=== PATIENT | male | born 1955 | race African-American/Black ===

== ENCOUNTER 2018-10-26 07:41 | Emergency (ER) | payer MEDICARE, MEDICAID, SELFPAY ==
[2018-10-26 07:45] VITALS: BP 144/84; PULSE 89; RESP 18; TEMP 37; O2SAT 97
--- NOTE | 2018-10-26 08:29 | ED.GENADUL_ITS ---
Discharge Plan Disposition Patient Disposition: HOME Condition: Good Discharge Details Chief Complaint: EyeProblem Clinical Impression: Abrasion, corneal Primary Care Provider: Gertrudis Uribe ED Provider: Nikolay Lane Home Meds and New Rx's Prescriptions: No Action atorvastatin 80 mg tablet 80 mg PO DAILY Qty: 90 RF: 3 Nicotrol 10 mg cartridge 4 mg IH Q4H PRN (Reason: nicotine cravings) Qty: 50 RF: 2 mirtazapine [Remeron SolTab] 45 MG tablet,disintegrating 45 mg PO HS RF: 0 aspirin 81 MG tablet,delayed release (DR/EC) 81 mg PO DAILY RF: 0 acetaminophen 325 MG tablet 650 mg PO Q4H PRN Qty: 30 RF: 3 Yaritza-[place] Original 1 EACH tablet, effervescent 1 ea PO PRN RF: 0 loperamide 2 MG capsule 4 mg PO QID PRNQty: 100 RF: 5 atenolol 100 MG tablet 100 mg PO DAILY Qty: 90 RF: 3 cilostazol 50 MG tablet 50 mg PO BID Qty: 180 RF: 2 pantoprazole 40 MG tablet,delayed release (DR/EC) 40 mg PO DAILY Qty: 90 RF: 3 loratadine 10 MG tablet 10 mg PO DAILY Qty: 90 RF: 3 gabapentin 300 mg capsule 300 mg PO BID Qty: 60 RF: 1 albuterol sulfate [Proventil HFA] 90 mcg/actuation HFA aerosol inhaler 1 - 2 puff Inhalation Q4H PRN PRN (Reason: shortness of breath or wheezing) Qty: 1 RF: 0 quetiapine [Seroquel] 200 MG tablet PO BID RF: 0 Discharge Instructions Instructions: Corneal Abrasion (ED) Additional Instructions: Please apply the ointment to your eye 3 times daily. 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 If you notice any worsening of your symptoms, or any new symptoms such as vision changes, worsening eye pain, discharge from your eye, vomiting, diarrhea, fever, chills, shortness of breath, chest pain, numbness, weakness, or fainting , please return immediately to the emergency department for reevaluation. Please follow up with your primary care provider as soon as possible for reassessment and reevaluation. As always, it was a pleasure participating in your medical care today. Referrals: [facility] [OTHER] - Medical Decision Making This is a 63-year-old -Citizen Of [place] male who presents for evaluation of foreign body sensation in his right eye. It started late last night to early this morning. He denies any recent trauma, metalworking, or woodworking. Exam demonstrates mild corneal abrasion over the center of his eye with uptake. No evidence of retained foreign body, no evidence of rust ring. Visual exam otherwise normal. Eversion of both lids demonstrate no evidence of Lash foreign body under lids. No other significant abnormalities. Patient was given erythromycin ointment here as well as a tube of this and instructed to follow closely with Dr. Garrison. No concerning red flags, no history of HIV, no risk factors for severe corneal ulcer. I have extensively reviewed the treatment plan and discharge instructions with the patient. I have addressed all patient concerns at this time. The patient was made aware of what symptoms to monitor for that would warrant a return to the emergency department. Discussed the plan with the patient, they demonstrate verbal understanding and agreement with our assessment and plan at this time. Mild corneal abrasion noted in the right eye. Not a contact lens wearer. No evidence of foreign body. Erythromycin ointment and Dr. Garrison HPI General Date/Time Provider Initiated Documentation: 10/26/18 08:18 . HPI Narrative: This is a 63-year-old male with past medical history alcohol abuse, hypertension, Crohn's disease, peripheral vascular disease, ostomy, who does not wear contact lenses, who presents today for evaluation of foreign body sensation in his right eye. Patient states that he woke up with the sensation of feeling like it was something grainy in his eye. He denies any other visual changes. He denies any fever, chills, recent metal work or woodworking. He denies any other complaints. He has tried to wash it out with with water, but this is not improved his symptoms. Related Data Home Medications Medication Instructions Recorded Confirmed mirtazapine [Remeron] 45 mg PO HS tab-cap 09/12/12 08/29/18 aspirin 81 mg PO DAILY tab 10/17/12 08/29/18 quetiapine [Seroquel] 0 mg PO BID 10/29/13 08/29/18 acetaminophen 650 mg PO Q4H PRN #30 tab-cap 08/23/16 08/29/18 aspirin-sod bicarb-citric acid 1 ea PO PRN 01/19/17 08/29/18 [[place] Original Tab Eff] loperamide 4 mg PO QID PRN #100 tab-cap 02/08/17 08/29/18 atenolol 100 mg PO DAILY #90 tab-cap 10/19/17 08/29/18 cilostazol 50 mg PO BID #180 tab-cap 02/15/18 08/29/18 pantoprazole 40 mg PO DAILY #90 tab-cap 02/15/18 08/29/18 loratadine 10 mg PO DAILY #90 tab-cap 02/28/18 08/29/18 atorvastatin 80 mg tablet 80 mg PO DAILY #90 tab 05/02/18 08/29/18 nicotine 10 mg inhalation cartridge 4 mg IH Q4H PRN #50 each 05/02/18 08/29/18 gabapentin 300 mg capsule 300 mg PO BID #60 cap 09/21/18 albuterol sulfate HFA 90 1 - 2 puff INHALATION Q4H PRN PRN 10/10/18 mcg/actuation aerosol inhaler #1 inhaler Previous Rx's Medication Instructions Recorded atenolol 100 mg PO DAILY #90 tab-cap 10/19/17 cilostazol 50 mg PO BID #180 tab-cap 02/15/18 pantoprazole 40 mg PO DAILY #90 tab-cap 02/15/18 loratadine 10 mg PO DAILY #90 tab-cap 02/28/18 atorvastatin 80 mg tablet 80 mg PO DAILY #90 tab 05/02/18 nicotine 10 mg inhalation cartridge 4 mg IH Q4H PRN #50 each 05/02/18 gabapentin 300 mg capsule 300 mg PO BID #60 cap 09/21/18 albuterol sulfate HFA 90 1 - 2 puff INHALATION Q4H PRN PRN 10/10/18 mcg/actuation aerosol inhaler #1 inhaler Allergies Allergy/AdvReac Type Severity Reaction Status Date / Time infliximab [From Remicade] Allergy Unknown rash, Verified 08/29/18 11:08 flushing lamotrigine Allergy Unknown Rash Verified 08/29/18 11:08 hydromorphone HCl AdvReac Intermediate itching Verified 08/29/18 11:08 [From Dilaudid] General Stated Complaint: EyeProblem RANDALL: 4 Review of Systems Review of Systems All systems reviewed & are unremarkable except as noted in HPI and below PFSH Medical History Acute kidney injury Alcohol abuse Alcoholic peripheral neuropathy Crohn disease Essential hypertension Ileostomy present PVD (peripheral vascular disease) Tobacco abuse Tubular adenoma of colon Surgical History Angioplasty (09/27/12) Colonoscopy - IV Sedation (04/29/15) Ileoscopy (07/13/17) PARTIAL ILEAL COLECTOMY AND DLI (08/10/16) Stent placement (09/27/12) coronary angiography (08/30/16) Family History Mother Essential hypertension Diabetes Heart disease Stroke Social History Smoking/Tobacco Use Status: Current every day Alcohol Intake: current Alcohol Intake frequency: a few times a week Alcohol type: beer Drug use: Occasionally Substance use type: marijuana Housing: apartment Number of Children: 2 Pets and animals: Yes Pets and animals: cat(s) What type of physical activity do you participate in: none Seatbelt use: always Drive 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 Right eye: EOMI, PERRL, Peripheral vision intact. No nystagmus. No external signs of preseptal cellulitis, no redness around the eye, no proptosis. No hyphema, no signs of trauma around the eye, no periorbital emphysema. Fluorescein exam is positive for corneal abrasion over the center of the cornea, negative Ronda sign. No evidence of rust ring or foreign body. Visual acuity as documented in chart. No difference in visual acuity. 3.ENT: Atraumatic external nose and ears. Moist MM. Neck: Symmetric, trachea midline, No thyromegaly. 4.CVS: +S1/S2, No murmurs or gallops. Peripheral pulses 2+ and equal in all extremities. Brisk capillary refill in all extremities. 5.RESP: Unlabored respiratory effort. Clear to auscultation bilaterally. No wheezes rales or rhonchi 6.GI: Soft, Nontender/Nondistended, No hepatosplenomegaly. No guarding or rebound. 7.MSK: Normocephalic/Atraumatic, Extremities w/o deformity or ttp No cyanosis or clubbing, Normal movement of all extremities 8.Skin: Warm, Dry. No rashes or lesions. 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 Sensation grossly intact, no focal neurologic deficits. 10.Psych: (AAO) x3. Appropriate mood and affect Course Vital Signs Temperature 37.0 C 10/26/18 07:45 Pulse 89 10/26/18 07:45 Respiratory Rate 18 10/26/18 07:45 Blood Pressure 144/84 H 10/26/18 07:45 Pulse Oximetry 97 10/26/18 07:45 Temperature 37.0 C 10/26/18 07:45 Temperature Source Temporal Artery Scan 10/26/18 07:45 Pulse 89 10/26/18 07:45 Respiratory Rate 18 10/26/18 07:45 Blood Pressure 144/84 H 10/26/18 07:45 Blood Pressure Position Sitting 10/26/18 07:45 Pulse Oximetry 97 10/26/18 07:45 Oxygen Delivery Method Room Air 10/26/18 07:45 Oxygen Flow Rate 0 10/26/18 07:45 Pain Level 8 10/26/18 07:45
[2018-10-26] MEDS: Erythromycin Ophth Oint 3.5 GM TUBE (19:07)
[2018-10-26] MEDS: Fluorescein STRIPS 100/BOX 1 MG (19:07)
[2018-10-26] MEDS: Tetracaine 0.5% 4 ML BTL (19:07)
== END 2018-10-26 08:45 | disposition home or self-care (01) ==
PROVIDERS: Emergency Provider Student in an Organized Health Care Education/Training Program; PCP Internal Medicine
DX: S05.01XA Injury of conjunctiva and corneal abrasion without foreign body, right eye, initial encounter (principal); X58.XXXA Exposure to other specified factors, initial encounter; I10 Essential (primary) hypertension
CPT/HCPCS: 99283

== ENCOUNTER 2018-12-11 11:42 | Emergency (ER) | payer MEDICARE, MEDICAID, SELFPAY ==
[2018-12-11 11:52] VITALS: BP 143/101; PULSE 108; RESP 20; TEMP 36.8; O2SAT 98
--- NOTE | 2018-12-11 12:15 | DI.CT_ITS ---
SYMPTOMS/DIAGNOSIS: LEFT PAROTID NECK MASS CERVICAL CT: CT examination of the cervical region was performed with intravenous infusion of 100 cc of Omnipaque 350. Images obtained through the lung apices show severe bullous emphysema. The tracheolaryngeal structures appear grossly intact. No gross cervical mass or adenopathy. The patient reportedly has a question of a palpable left parotid gland mass. The parotid glands are fairly symmetrical with perhaps a slightly larger left parotid. No intraparenchymal mass identified on either side. Submandibular glands appear normal and symmetrical. Visualized paranasal sinuses are predominantly clear with some mucoperiosteal thickening of the sphenoid sinuses. Visualized mastoid air cells are clear. Visualized brain is unremarkable. Some atheromatous change appears to be present in the proximal internal carotid arteries bilaterally, but these vessels are not ideally opacified. CONCLUSION: No gross parotid mass identified. If there is a high clinical suspicion of a parotid mass, additional evaluation with MR of the neck could be considered.
--- NOTE | 2018-12-11 12:18 | ED.GENADUL_ITS ---
Discharge Plan Disposition Patient Disposition: HOME Condition: Good Discharge Details Chief Complaint: GenMedical Clinical Impression: Enlarged parotid gland Primary Care Provider: Gertrudis Uribe ED Provider: Nikolay Lane Home Meds and New Rx's Prescriptions: No Action atorvastatin 80 mg tablet 80 mg PO DAILY Qty: 90 RF: 3 Nicotrol 10 mg cartridge 4 mg IH Q4H PRN (Reason: nicotine cravings) Qty: 50 RF: 2 mirtazapine [Remeron SolTab] 45 MG tablet,disintegrating 45 mg PO HS RF: 0 aspirin 81 MG tablet,delayed release (DR/EC) 81 mg PO DAILY RF: 0 acetaminophen 325 MG tablet 650 mg PO Q4H PRN Qty: 30 RF: 3 Yaritza-[place] Original 1 EACH tablet, effervescent 1 ea PO PRN RF: 0 loperamide 2 MG capsule 4 mg PO QID PRNQty: 100 RF: 5 atenolol 100 MG tablet 100 mg PO DAILY Qty: 90 RF: 3 cilostazol 50 MG tablet 50 mg PO BID Qty: 180 RF: 2 pantoprazole 40 MG tablet,delayed release (DR/EC) 40 mg PO DAILY Qty: 90 RF: 3 loratadine 10 MG tablet 10 mg PO DAILY Qty: 90 RF: 3 albuterol sulfate [Proventil HFA] 90 mcg/actuation HFA aerosol inhaler 1 - 2 puff Inhalation Q4H PRN PRN (Reason: shortness of breath or wheezing) Qty: 1 RF: 0 gabapentin 300 mg capsule 300 mg PO BID Qty: 60 RF: 1 quetiapine [Seroquel] 200 MG tablet PO BID RF: 0 Discharge Instructions Instructions: Parotid Duct Obstruction (ED) Additional Instructions: At this time the CT scan shows no signs of severe abnormality for your parotid gland, however you do need to follow-up closely with an ENT doctor. We will place a referral, and you will be contacted for an appointment time. If you notice any worsening of your symptoms, or any new symptoms such as vomiting, diarrhea, fever, chills, shortness of breath, chest pain, numbness, weakness, or fainting , please return immediately to the emergency department for reevaluation. Please follow up with your primary care provider as soon as possible for reassessment and reevaluation. As always, it was a pleasure participating in your medical care today. Referrals: Gertrudis Uribe MD [Primary Care Provider] - Medical Decision Making This is a pleasant 63-year-old male who presents for evaluation of left parotid gland swelling which he states started today when he woke up. He denies any pain or tenderness or difficulty swallowing or drinking. No signs of airway compromise whatsoever. Exam demonstrates a soft notably enlarged left parotid gland. No testicular pain, or swelling in his other glands. His immunizations are up-to-date, and no clinical consistency with mumps. We will get a CT scan to rule out mass or malignancy. Since there is no signs of airway compromise whatsoever and the lesion appears to be external, with no evidence of abscess if there is no acute process noted on CT I feel that the patient be safely discharged home with close follow-up with his PCP. 2:[address] scan results per Dr. Mcdonald demonstrate minimal to mild enlargement of the left parotid gland, no evidence of heterogenicity, abscess, or atypical mass. No other significant abnormalities acutely noted on CT. Patient continues to look and appear well, have reassuring vital signs, and normal labs. With no signs of severe obstruction, I do not think that a sialagogue is indicated at this time I feel he can be safely discharged home with close follow-up. We will place an ENT referral for further evaluation of this for potential MRI or biopsy. I have extensively reviewed the treatment plan and discharge instructions with the patient. I have addressed all patient concerns at this time. The patient was made aware of what symptoms to monitor for that would warrant a return to the emergency department. Discussed the plan with the patient, they demonstrate verbal understanding and agreement with our assessment and plan at this time. HPI General Date/Time Provider Initiated Documentation: 12/11/18 12:08 . HPI Narrative: This is a 63-year-old -[place] Citizen male with a past medical history of ileostomy, hypertension, high cholesterol, who presents today for evaluation of left-sided cheek/neck mass. The patient states that he woke up was about to go to the store when he noticed significant swelling over his left jaw. He denies any pain, difficulty swallowing, fever, chills, recent weight loss, or previous cancer. He denies any other complaints or other modifying factors. He denies any difficulty controlling secretions, shortness of breath, neck or vision pain, numbness or tingling peer Related Data Home Medications Medication Instructions Recorded Confirmed mirtazapine [Remeron] 45 mg PO HS tab-cap 09/12/12 12/11/18 aspirin 81 mg PO DAILY tab 10/17/12 12/11/18 quetiapine [Seroquel] 0 mg PO BID 10/29/13 12/11/18 acetaminophen 650 mg PO Q4H PRN #30 tab-cap 08/23/16 12/11/18 aspirin-sod bicarb-citric acid 1 ea PO PRN 01/19/17 12/11/18 [Yaritza-[place] Original Tab Eff] loperamide 4 mg PO QID PRN #100 tab-cap 02/08/17 12/11/18 atenolol 100 mg PO DAILY #90 tab-cap 10/19/17 12/11/18 cilostazol 50 mg PO BID #180 tab-cap 02/15/18 12/11/18 pantoprazole 40 mg PO DAILY #90 tab-cap 02/15/18 12/11/18 loratadine 10 mg PO DAILY #90 tab-cap 02/28/18 12/11/18 atorvastatin 80 mg tablet 80 mg PO DAILY #90 tab 05/02/18 12/11/18 nicotine 10 mg inhalation cartridge 4 mg IH Q4H PRN #50 each 05/02/18 12/11/18 albuterol sulfate HFA 90 1 - 2 puff INHALATION Q4H PRN PRN 10/10/18 12/11/18 mcg/actuation aerosol inhaler #1 inhaler gabapentin 300 mg capsule 300 mg PO BID #60 cap 11/10/18 12/11/18 Previous Rx's Medication Instructions Recorded atenolol 100 mg PO DAILY #90 tab-cap 10/19/17 cilostazol 50 mg PO BID #180 tab-cap 02/15/18 pantoprazole 40 mg PO DAILY #90 tab-cap 02/15/18 loratadine 10 mg PO DAILY #90 tab-cap 02/28/18 atorvastatin 80 mg tablet 80 mg PO DAILY #90 tab 05/02/18 nicotine 10 mg inhalation cartridge 4 mg IH Q4H PRN #50 each 05/02/18 albuterol sulfate HFA 90 1 - 2 puff INHALATION Q4H PRN PRN 10/10/18 mcg/actuation aerosol inhaler #1 inhaler gabapentin 300 mg capsule 300 mg PO BID #60 cap 11/10/18 Allergies Allergy/AdvReac Type Severity Reaction Status Date / Time infliximab [From Remicade] Allergy Unknown rash, Verified 12/11/18 11:54 flushing lamotrigine Allergy Unknown Rash Verified 12/11/18 11:54 hydromorphone HCl AdvReac Intermediate itching Verified 12/11/18 11:54 [From Dilaudid] General Stated Complaint: GenMedical RANDALL: 3 Review of Systems Review of Systems All systems reviewed & are unremarkable except as noted in HPI and below PFSH Family History Mother Essential hypertension Diabetes Heart disease Stroke Social History Smoking/Tobacco Use Status: Current every day Alcohol Intake: current Alcohol Intake frequency: a few times a week Alcohol type: beer Drug use: Occasionally Substance use type: marijuana Housing: apartment Number of Children: 2 Pets and animals: Yes Pets and animals: cat(s) What type of physical activity do you participate in: none Seatbelt use: always 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 3.ENT: Atraumatic external nose and ears. Moist MM. Neck: Symmetric, trachea midline, No thyromegaly. Patient's left parotid gland is notably enlarged and asymmetric compared to the right. No tenderness. Oral exam demonstrates no signs of severe dental caries, erythema, or swelling in the intraoral compartment. No evidence of sialolith. No tenderness, erythema or warmth on the external component. No anterior or posterior cervical lymphadenopathy. Ear exams demonstrate no signs of otitis media or externa. Patient demonstrates good movement of cervical neck. There is no nuchal rigidity, no nuchal tenderness. Patient is able to flex the neck without any difficulty or significant pain. Negative Kernig's and Brudzinski sign. 4.CVS: +S1/S2, No murmurs or gallops. Peripheral pulses 2+ and equal in all extremities. Brisk capillary refill in all extremities. 5.RESP: Unlabored respiratory effort. Clear to auscultation bilaterally. No wheezes rales or rhonchi 6.GI: Soft, Nontender/Nondistended, No hepatosplenomegaly. No guarding or rebound. 7.MSK: Normocephalic/Atraumatic, Extremities w/o deformity or ttp No cyanosis or clubbing, Normal movement of all extremities 8.Skin: Warm, Dry. No rashes or lesions. 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 Sensation grossly intact, no focal neurologic deficits. 10.Psych: (AAO) x3. Appropriate mood and affect Course Vital Signs Temperature 36.8 C 12/11/18 11:52 Pulse 108 H 12/11/18 11:52 Respiratory Rate 20 12/11/18 11:52 Blood Pressure 143/101 H 12/11/18 11:52 Pulse Oximetry 98 12/11/18 11:52 Temperature 36.8 C 12/11/18 11:52 Temperature Source Temporal Artery Scan 12/11/18 11:52 Pulse 108 H 12/11/18 11:52 Respiratory Rate 20 12/11/18 11:52 Respiratory Effort Non-Labored 12/11/18 11:52 Blood Pressure 143/101 H 12/11/18 11:52 Blood Pressure Position Sitting 12/11/18 11:52 Pulse Oximetry 98 12/11/18 11:52 Oxygen Delivery Method Room Air 12/11/18 11:52 Oxygen Flow Rate 0 12/11/18 11:52
[2018-12-11 12:31] VITALS: RESP 16
[2018-12-11 12:38] LABS: Abs Immature Grans 0.02 k/cumm (0.0-0.09); Absolute Basophil Count 0.02 k/cumm (0.0-0.2); Absolute Eosinophil Count 0.06 k/cumm (0.0-0.7); Absolute Lymphocyte Count 2.31 k/cumm (1.2-3.4); Absolute Monocyte Count 0.54 k/cumm (0.11-0.7); Absolute Neutrophil Count 3.64 k/cumm (1.2-6.7); Basophils % 0.3; Eosinophils % 0.9; HGB 14.2 g/dL (13.5-17.5); Immature Grans % 0.3; Lymphocytes % 35.1; Mean Corp. HGB Concentration 32.3 g/dL (32.0-36.0); Mean Corpuscular Hemoglobin 29.6 pg (27.0-33.0); Mean Corpuscular Volume 91.7 fL (80-95); Monocytes % 8.2; Neutrophils % 55.2; Platelet Count 287 x1000/uL (130-400); RBC Distribution Width 13.9 % (11.8-14.1); White Blood Cell Count 6.59 k/cumm (4.4-10.8)
[2018-12-11 12:54] LABS: ALT 43 U/L (12-78); AST 46 U/L (15-37); Albumin 3.8 g/dL (3.4-5.0); Alkaline Phosphatase 137 U/L (46-116); Anion Gap 10.4 mmol/L (3-11); BUN 14 mg/dL (7-18); Bilirubin, Total 0.2 mg/dL (0.2-1.0); CO2 22.6 mmol/L (21.0-32.0); CREATININE 1.44 mg/dL (0.70-1.30); Chloride 106 mmol/L (98-107); Estimated GFR 49.39 (mL/min/1.73m2); Glucose 108 mg/dL (70-100); Potassium 4.1 mmol/L (3.5-5.1); Sodium 139 mmol/L (136-145); Total Protein 8.6 g/dL (6.4-8.2)
[2018-12-11] MEDS: Omnipaque 350 MG/ML 100 ML BTL IJ (13:59)
[2018-12-11] MEDS: Normal Saline Flush 10 ML SYR IVP (14:00)
[2018-12-11 14:25] VITALS: BP 143/101; PULSE 108; RESP 16; TEMP 36.8; O2SAT 98
--- NOTE | 2018-12-12 08:25 | PDOC.ERCMPRO ---
Care Management Progress Note 12/12-Dr. Lane requested assistance with an ENT f/u in 1-2 weeks for Left carotid swelling. Referral faxed to ENT this am.
== END 2018-12-11 14:27 | disposition home or self-care (01) ==
PROVIDERS: Emergency Provider Student in an Organized Health Care Education/Training Program; PCP Internal Medicine
DX: K11.8 Other diseases of salivary glands (principal); I10 Essential (primary) hypertension
CPT/HCPCS: 36415; 70491; 80053; 99285; 85025; 99284; J3490

== ENCOUNTER 2019-03-15 03:52 | Outpatient (CLI) | payer MEDICARE, MEDICAID, SELFPAY ==
--- NOTE | 2019-03-15 13:49 | DI.CTLCSR_ITS ---
SYMPTOMS/DIAGNOSIS: NICOTINE DEPENDENCE, F17.210, SCREENING FOR LUNG CA CT CHEST, LOW DOSE LUNG CANCER SCREENING PROTOCOL: CT examination of the chest was performed utilizing low dose lung cancer screening protocol. Images obtained through the upper abdomen show unremarkable appearance of the visualized portions of liver, spleen, pancreas, adrenals and kidneys. No mediastinal or hilar adenopathy seen. Tracheobronchial tree appears intact. No axillary or supraclavicular adenopathy. No pleural effusion or pleural-based mass. There are severe emphysematous changes, predominantly central lobular and most prominent in the upper lobes. Lingular and right middle lobe scarring noted. There is an approximately 5 mm mean diameter nodule of the left lower lobe seen peripherally posterolaterally. This is unchanged from previous CT of 10/11/17. No new significant nodule identified. CONCLUSION: Category 2, benign appearance or behavior. Continue annual screening with LDCT in 12 months. Lung-RAD Category: 2- Benign Appearance/Behavior Lung- RAD Management of Findings: Continue annual LDCT screening in 12 months
== END 2019-03-15 04:12 ==
PROVIDERS: PCP Internal Medicine; Visit Provider Internal Medicine
DX: Z12.2 Encounter for screening for malignant neoplasm of respiratory organs; F17.210 Nicotine dependence, cigarettes, uncomplicated; J43.9 Emphysema, unspecified; R91.1 Solitary pulmonary nodule
CPT/HCPCS: G0297

== ENCOUNTER 2019-09-11 09:42 | Emergency (ER) | payer MEDICARE, MEDICAID, SELFPAY ==
[2019-09-11 09:44] VITALS: BP 168/84; PULSE 96; RESP 16; TEMP 36.6; O2SAT 98
--- NOTE | 2019-09-11 09:50 | W.ED.GENAD ---
Discharge Plan Disposition Patient Disposition: HOME Condition: Improving Discharge Details Chief Complaint: EyeProblem Clinical Impression: Abrasion of cornea, left Primary Care Provider: Gertrudis Uribe ED Provider: John Bill Home Meds and New Rx's Prescriptions: Continued Nicotrol 10 mg cartridge 4 mg IH Q4H PRN (Reason: nicotine cravings) RF: 0 gabapentin 600 mg tablet 600 mg PO TID Qty: 270 RF: 3 mirtazapine [Remeron SolTab] 45 MG tablet,disintegrating 45 mg PO HS RF: 0 aspirin 81 MG tablet,delayed release (DR/EC) 81 mg PO DAILY RF: 0 acetaminophen 325 MG tablet 650 mg PO Q4H PRN Qty: 30 RF: 3 [place] Original 1 EACH tablet, effervescent 1 ea PO PRN RF: 0 loperamide 2 MG capsule 4 mg PO QID PRNQty: 100 RF: 5 atenolol 100 mg tablet 100 mg PO DAILY Qty: 90 RF: 3 cilostazol 50 mg tablet 50 mg PO BID Qty: 180 RF: 3 loratadine 10 mg tablet 10 mg PO DAILY Qty: 90 RF: 3 pantoprazole 40 mg tablet,delayed release (DR/EC) 40 mg PO DAILY Qty: 90 RF: 3 atorvastatin 80 mg tablet 80 mg PO DAILY Qty: 90 RF: 3 albuterol sulfate [Proventil HFA] 90 mcg/actuation HFA aerosol inhaler 1 - 2 puff Inhalation Q4H PRN PRN (Reason: shortness of breath or wheezing) Qty: 1 RF: 0 quetiapine [Seroquel] 200 MG tablet 0 mg PO BID RF: 0 Discharge Instructions Instructions: Corneal Abrasion (ED) Additional Instructions: May use Tylenol as needed for discomfort, continue your regular medications. You may benefit from resting with a cool compress to the eye to decrease discomfort. Continue erythromycin ointment 4 times daily for 4 to 5 days. We will ask our care management team to arrange a follow-up for you at [facility]. Return for any acute concerns. Medical Decision Making 64-year-old male presents from home with left eye irritation, pain, injection and question foreign body. He does have a small speck of granular material removed underneath the upper lid. Under fluorescein exam there is punctate corneal abrasion but no evidence of Ronda sign. I will asked the care management arrange follow-up for him at [facility]. We will treat him with erythromycin ointment. He stable and improving. He is appropriate for discharge home at this time. HPI General Mode of arrival: ambulatory. Date/Time Provider Initiated Documentation: 09/11/19 09:45. Limitations to Documentation: no limitations. Information obtained by: patient. History of Present Illness 64 year old M presents to the emergency department with the chief complaint of Left eye foreign body/pain this morning, described as moderate and similar to prior episodes, and is localized to the eyes and left. Patient reports no radiation. Patient started experiencing this hour(s) and it has been constant. No relieving factors improve symptom(s), No exacerbating factors reported . Patient notes denies fever/chills, headaches, loss of appetite and nausea/vomiting. Patient did receive the following treatments prior to arrival, other (Old antibiotic ointment) Related Data Home Medications Medication Instructions Recorded Confirmed mirtazapine [Remeron SolTab] 45 mg PO HS tab-cap 09/12/12 09/11/19 aspirin 81 mg PO DAILY tab 10/17/12 09/11/19 quetiapine [Seroquel] 0 mg PO BID 10/29/13 09/11/19 acetaminophen 650 mg PO Q4H PRN #30 tab-cap 08/23/16 09/11/19 [place] Original 1 ea PO PRN 01/19/17 09/11/19 loperamide 4 mg PO QID PRN #100 tab-cap 02/08/17 09/11/19 atenolol 100 mg tablet 100 mg PO DAILY #90 tab-cap 12/26/18 09/11/19 atorvastatin 80 mg tablet 80 mg PO DAILY #90 tab 12/26/18 09/11/19 cilostazol 50 mg tablet 50 mg PO BID #180 tab-cap 12/26/18 09/11/19 loratadine 10 mg tablet 10 mg PO DAILY #90 tab-cap 12/26/18 09/11/19 pantoprazole 40 mg tablet,delayed 40 mg PO DAILY #90 tab-cap 12/26/18 09/11/19 release albuterol sulfate 90 mcg/actuation 1 - 2 puff INHALATION Q4H PRN PRN 02/14/19 09/11/19 aerosol inhaler #1 inhaler gabapentin 600 mg tablet 600 mg PO TID #270 tab 02/27/19 09/11/19 nicotine 10 mg inhalation cartridge 4 mg IH Q4H PRN each 02/27/19 09/11/19 Previous Rx's Medication Instructions Recorded atenolol 100 mg tablet 100 mg PO DAILY #90 tab-cap 12/26/18 atorvastatin 80 mg tablet 80 mg PO DAILY #90 tab 12/26/18 cilostazol 50 mg tablet 50 mg PO BID #180 tab-cap 12/26/18 loratadine 10 mg tablet 10 mg PO DAILY #90 tab-cap 12/26/18 pantoprazole 40 mg tablet,delayed 40 mg PO DAILY #90 tab-cap 12/26/18 release albuterol sulfate 90 mcg/actuation 1 - 2 puff INHALATION Q4H PRN PRN 02/14/19 aerosol inhaler #1 inhaler gabapentin 600 mg tablet 600 mg PO TID #270 tab 02/27/19 Allergies Allergy/AdvReac Type Severity Reaction Status Date / Time infliximab [From Remicade] Allergy Unknown rash, Verified 09/11/19 09:51 flushing lamotrigine Allergy Unknown Rash Verified 09/11/19 09:51 hydromorphone HCl AdvReac Intermediate itching Verified 09/11/19 09:51 [From Dilaudid] General Stated Complaint: EyeProblem RANDALL: 4 Review of Systems Narrative: No injury. He is otherwise been well. [facility] Medical History Acute kidney injury Acute kidney injury (Resolved 07/31/16) Alcohol abuse Alcoholic peripheral neuropathy Crohn disease Essential hypertension Ileostomy present PVD (peripheral vascular disease) Tobacco abuse Tubular adenoma of colon Surgical History Angioplasty (09/27/12) Right external iliac and common iliac arteries Colonoscopy - IV Sedation (04/29/15) 3mm polyp in transverse colon coronary angiography (08/30/16) L heart catheterization [facility] Ileoscopy (07/13/17) 06/16/[address] Duran Haskins, recommendation to repeat in 1 year. Report scanned PARTIAL ILEAL COLECTOMY AND DLI (08/10/16) Stent placement (09/27/12) RIght external iliac and common iliac arteries Family History Mother Essential hypertension Diabetes Heart disease Stroke Social History Smoking/Tobacco Use Status: Current every day Tobacco: How many years used: 40 Alcohol Intake: current Alcohol Intake frequency: 3 or more drinks per day Alcohol type: beer Drug use: Occasionally Substance use type: marijuana Household members: none Housing: apartment Number of Children: 2 Communication Needs: None Pets and animals: Yes Pets and animals: cat(s) What type of physical activity do you participate in: walking Seatbelt use: always Drive intox or ride w/intox driver service technician: No Water heater temp set <120 deg: Yes Working smoke detector in home: Yes Fire extinguisher in home: Yes Carbon monox detector in home: Yes Do you feel safe at home: Yes Do you feel safe in your relationship?: Yes Exam Narrative Exam Narrative: GEN: awake, alert, oriented 3. Pleasant, well groomed, interactive. HEAD: Normocephalic, atraumatic ENT: Mucous membranes moist, oropharynx unremarkable, External ear exam unremarkable EYES: PERRL, EOMI, left conjunctival injection, under the left eyelid there is a small foreign body which is removed. Under fluorescein exam there is a inferior punctate corneal abrasion, negative Ronda sign EXT: Full ROM, no edema, no rash Neuro: Grossly normal neurologic exam, conversant, interactive. Psych: Speech fluent, thoughts congruent, affect normal Course Vital Signs Vital signs: Vital Signs Temperature 36.6 C 09/11/19 09:44 Pulse 96 H 09/11/19 09:44 Respiratory Rate 16 09/11/19 09:44 Blood Pressure 168/84 H 09/11/19 09:44 Pulse Oximetry 98 09/11/19 09:44 Temperature 36.6 C 09/11/19 09:44 Temperature Source Temporal Artery Scan 09/11/19 09:44 Pulse 96 H 09/11/19 09:44 Respiratory Rate 16 09/11/19 09:44 Respiratory Effort Non-Labored 09/11/19 09:46 Blood Pressure 168/84 H 09/11/19 09:44 Blood Pressure Position Sitting 09/11/19 09:44 Pulse Oximetry 98 09/11/19 09:44 Oxygen Delivery Method Room Air 03/03/20 09:44 Oxygen Flow Rate 0 09/11/19 09:44 Pain Level 10 09/11/19 09:44
[2019-09-11] MEDS: Balanced Salt Solution 15 ML BTL OP (09:59)
[2019-09-11] MEDS: Erythromycin Ophth Oint 3.5 GM TUBE OS (10:16)
--- NOTE | 2019-09-11 11:52 | NUR.NOTE ---
Referral and physician note faxed to [facility]. [phone].Nursing Note:
== END 2019-09-11 10:17 | disposition home or self-care (01) ==
LOC: ER 10:19
PROVIDERS: Emergency Provider Emergency Medicine; PCP Internal Medicine
DX: S05.02XA Injury of conjunctiva and corneal abrasion without foreign body, left eye, initial encounter (principal); X58.XXXA Exposure to other specified factors, initial encounter; I10 Essential (primary) hypertension
CPT/HCPCS: 65220

== ENCOUNTER 2019-12-27 04:52 | Outpatient (CLI) | payer MEDICARE, MEDICAID, SELFPAY ==
[2019-12-27 13:05] LABS: Anion Gap 13.1 mmol/L (3-11); BUN 25 mg/dL (7-18); CO2 17.9 mmol/L (21.0-32.0); CREATININE 1.75 mg/dL (0.70-1.30); Calcium 8.7 mg/dL (8.5-10.1); Calculated LDL 39 mg/dL (<100); Chloride 107 mmol/L (98-107); Cholesterol 145 mg/dL (<200); Estimated GFR 39.31 (mL/min/1.73m2); Glucose 106 mg/dL (74-106); HDL Cholesterol 58 mg/dL (40-60); Potassium 5.7 mmol/L (3.5-5.1); Sodium 138 mmol/L (136-145); Triglyceride 240 mg/dL (<150)
== END 2019-12-27 05:12 ==
PROVIDERS: PCP Internal Medicine; Visit Provider Internal Medicine
DX: I10 Essential (primary) hypertension (principal); E78.00 Pure hypercholesterolemia, unspecified
CPT/HCPCS: 36415; 80048; 80061

== ENCOUNTER 2020-03-18 02:03 | Outpatient (CLI) | payer MEDICARE, MEDICAID, SELFPAY ==
--- NOTE | 2020-03-18 12:10 | DI.CTLCSR_ITS ---
EXAM: CT CHEST LUNG CANCER SCREEN CLINICAL HISTORY: Screening for lung cancer F17.210 NICOTINE DEPENDENCE TECHNIQUE: Imaging Protocol: Axial computed tomography images with coronal and sagittal reformatted images were created and reviewed COMPARISON: CT CT CHEST LUNG CANCER SCREEN from 03/15/2019 FINDINGS: Tracheobronchial tree: Patent where visualized. Mediastinum and Annalise: No dominant adenopathy or fluid collection. Pulmonary parenchyma: Underlying changes centrilobular emphysema greatest in the upper lobes. Lung Nodules: Stable 5 millimeter nodule in left lower lobe. No new nodules. Pleura: No effusion or pneumothorax. Heart: The heart is not dilated. Mild coronary artery calcifications are seen. Aorta: Thoracic aorta non-dilated. Upper abdomen: Unremarkable. Bones: Degenerative disc changes. IMPRESSION: Stable 5 millimeter left lower lobe nodule. Lung RADS Cat 2 - Benign Appearance / Behavior: Nodules with a very low likelihood of becoming a clin ically active cancer due to size or lack of growth modifier S Lung-RADS 1.0 CATEGORIES: Category 0 - Prior chest CT exam(s) being located for comparison. Category 1 - Annual screening in 12 months. No nodules or definitely benign nodules. Category 2 - Annual screening in 12 months. Benign appearance. Nodules with low likelihood of becomin g active cancer. Category 3 - 6-month follow-up. Probably benign. Short-term follow-up suggested. Nodules with low lik elihood of becoming active cancer. Category 4A - 3-month follow-up and CT/PET if >8 mm in size. Suspicious finding. Findings which requi re additional testing. Category 4B - Findings which require additional testing and tissue sampling. Suspicious finding. C Added to Any of the Above - History of prior lung cancer screening. S Added to Any of the Above - Significant unexpected other finding. RADIATION DOSE DELIVERED: Total DLP DATA REPOSITORY: All CT scans at this facility are submitted to the National Radiology Data Registry (NRDR) Dose Index Registry (DIR) with the [employer] (ACR). RADIATION OPTIMIZATION: All CT scans at this facility use at least one of these dose optimization te chniques: automated exposure control; mA and/or kV adjustment per patient size (includes targeted exa ms where dose is matched to clinical indication); or iterative reconstruction.
== END 2020-03-18 02:23 ==
PROVIDERS: PCP Internal Medicine; Visit Provider Internal Medicine
DX: Z12.2 Encounter for screening for malignant neoplasm of respiratory organs (principal); F17.210 Nicotine dependence, cigarettes, uncomplicated; R91.1 Solitary pulmonary nodule
CPT/HCPCS: G0297

== ENCOUNTER 2020-05-01 01:35 | Outpatient (CLI) | payer MEDICARE, MEDICAID, SELFPAY ==
--- NOTE | 2020-05-01 15:10 | DI.CT_ITS ---
EXAM: CT LUMBAR SPINE WO CLINICAL HISTORY: persistent numbness (B) feet in L4-5 distribution,LUMBAR RADICULOPATHY,M54. TECHNIQUE: Imaging Protocol: Axial computed tomography images with coronal and sagittal reformatted images were created and reviewed CONTRAST MATERIAL: Noncontrast COMPARISON: CT LUMBAR SPINE SI JOINTS WO from 06/07/2016 FINDINGS: Bones: The last intervertebral disc space is designated the L5/S1 level for the numbering purpose of this examination. The vertebral body heights are well maintained. Alignment is satisfactory. No frac ture is seen. There is bony bridging across the anterior aspect of the left SI joint. There is mild spurring of the right SI joint. No bony erosions are seen. The left hip is partially included in th e field of view. There is mild acetabular spurring. There is a subchondral cyst in the superior lizeth tabulum and a few small subchondral cysts in the left femoral head. T12-L1: No disc herniations or bulges are present. L1-2: No disc herniations or bulges are present. L2-3: There is mild loss of disc height. There are osteophytes projecting laterally toward the righ t. There is mild concentric disc bulging. L3-4: Mild concentric disc bulging. L4-5: Prominent circumferential disc bulging. Small endplate osteophytes. Facet degenerative nelson es and mild ligamentous hypertrophy combine to produce mild central canal stenosis and mild bilateral neural foraminal narrowing. L5-S1: Moderate loss of disc height. Prominent broad-based osteophytes. Mild facet joint degenerat belgica changes. There is severe left neural foraminal narrowing secondary to endplate osteophyte encroa chment. Moderate to severe right-sided neural foraminal narrowing is also seen. Soft Tissues: There is calcification in the abdominal aorta. There is a right iliac artery stent. No aneurysm is seen. The paraspinal soft tissues are unremarkable. IMPRESSION: Degenerative disc changes, greatest at L 5 S1 where there is severe bilateral neural foraminal narrow ing. Degenerative disc bulging and facet degenerative changes combine to produce mild central canal stenosis at L 4 5. No focal disc herniation is seen at any level. RADIATION DOSE DELIVERED: 664.88mGy.cm Total DLP DATA REPOSITORY: All CT scans at this facility are submitted to the National Radiology Data Registry (NRDR) Dose Index Registry (DIR) with the [employer] (ACR). RADIATION OPTIMIZATION: All CT scans at this facility use at least one of these dose optimization te chniques: automated exposure control; mA and/or kV adjustment per patient size (includes targeted exa ms where dose is matched to clinical indication); or iterative reconstruction.
[2020-05-01 16:49] LABS: Anion Gap 9.8 mmol/L (3-11); BUN 17 mg/dL (7-18); CO2 25.2 mmol/L (21.0-32.0); CREATININE 1.42 mg/dL (0.70-1.30); Calcium 8.4 mg/dL (8.5-10.1); Chloride 106 mmol/L (98-107); Estimated GFR 49.88 (mL/min/1.73m2); Glucose 97 mg/dL (74-106); Potassium 3.9 mmol/L (3.5-5.1); Sodium 141 mmol/L (136-145)
== END 2020-05-01 01:55 ==
PROVIDERS: PCP Internal Medicine; Visit Provider Internal Medicine
DX: M51.16 Intervertebral disc disorders with radiculopathy, lumbar region (principal); M48.062 Spinal stenosis, lumbar region with neurogenic claudication; R20.2 Paresthesia of skin; M47.816 Spondylosis without myelopathy or radiculopathy, lumbar region
CPT/HCPCS: 36415; 80048; 72131

== ENCOUNTER 2020-07-27 07:58 | Emergency (ER) | payer MEDICARE, MEDICAID, SELFPAY ==
[2020-07-27] VITALS (58 sets, daily range): BP systolic 101–144; BP diastolic 49–113; PULSE 61–110; RESP 10–35; TEMP 36.4; O2SAT 90–100
--- NOTE | 2020-07-27 08:00 | RT.EKG_ITS ---
APPROVED REPORT Exam: Resting ECG Patient Location: E HR:104 bpm ECG Measurements Heart Rate 104 AXIS TN 146 P 68 QRSd 78 QRS 7 QT 341 T 67 QTc 442 Conclusion Sinus tachycardia...rate> 99 Atrial premature complexes...SV complexes w/ short R-R intvls Probable left atrial enlargement...P >50mS, <-0.10mV V1
--- NOTE | 2020-07-27 08:18 | W.ED.GENAD ---
Discharge Plan Disposition Patient Disposition: [facility] Condition: Serious Discharge Details Clinical Impression: Brain mass, New onset seizure Primary Care Provider: Gertrudis Uribe ED Provider: Mark Sanchez Home Meds and New Rx's Prescriptions: No Action divalproex 125 mg capsule, delayed rel sprinkle 500 mg PO BID RF: 0 atenolol 100 mg tablet 100 mg PO DAILY Qty: 90 RF: 3 atorvastatin 80 mg tablet 80 mg PO DAILY Qty: 90 RF: 3 cilostazol 50 mg tablet 50 mg PO BID Qty: 180 RF: 3 Hold Instructions: restart 08/08/20 [place] [facility] [place] gabapentin 600 mg tablet 600 mg PO TID Qty: 270 RF: 3 pantoprazole 40 mg tablet,delayed release (DR/EC) 40 mg PO DAILY Qty: 90 RF: 3 loratadine 10 mg tablet 10 mg PO DAILY Qty: 90 RF: 3 albuterol sulfate [Proventil HFA] 90 mcg/actuation HFA aerosol inhaler 1 - 2 puff Inhalation Q4H PRN PRN (Reason: shortness of breath or wheezing) Qty: 1 RF: 2 mirtazapine [Remeron SolTab] 45 MG tablet,disintegrating 45 mg PO HS RF: 0 aspirin 81 MG tablet,delayed release (DR/EC) 81 mg PO DAILY RF: 0 Hold Instructions: restart 08/08/20 [place] [facility] [place] acetaminophen 325 MG tablet 650 mg PO Q4H PRN Qty: 30 RF: 3 Yaritza-Donner Original 1 EACH tablet, effervescent 1 ea PO PRN RF: 0 loperamide 2 MG capsule 4 mg PO QID PRNQty: 100 RF: 5 (DME) coloplast elastic barrier strips See Rx Instructions .Route .MEDSUPPLY Qty: 20 RF: 12 (DME) coloplast sensura convex pouch See Rx Instructions .Route .MEDSUPPLY Qty: 20 RF: 12 quetiapine [Seroquel] 200 mg tablet 400 mg PO BID RF: 0 Discharge Data Discharge Date/Time-TO BE ENTERED AT DEPARTURE: 07/27/20 14:18 Medical Decision Making 822??65-year-old male with multiple medical problems including history of alcohol abuse, chronic kidney disease, here after observed seizure-like activity with confusion after the event. Patient is now more oriented. No focal neurologic deficit appreciated. Patient is tachycardic but otherwise no signs of alcohol withdrawal. I suspect tonic-clonic seizure and postictal state. We will proceed with seizure work-up including CT head and diagnostic labs. I will give thiamine 100 mg IV. Considered arrhythmia, screening ECG nondiagnostic. -- Magnesium 1.1, Will give magnesium 2g IV. 10:10 -- CT head interpreted by radiology: large anterior cranial fossa mass, recommend MRI. Keppra 1g IV ordered. I called [facility] [place] to request transfer - awaiting call back from neurology. CT imaging sent for review. 11:12 --still awaiting return call from [facility]. I called to request again and awaiting callback. --Spoke with Dr. Ware, [facility] neuro[place]geon, discussed ED presentation and course, he will accept the patient in transfer. He recommends Decadron 10 mg IV be given. Now awaiting bed placement. --Patient reassessed and having some anxiety. Ativan 1 mg IV administered. 13:49 --bed now available. Will arrange for EMS transport. Lab Data Lab results reviewed: Yes I reviewed the patient's lab results. Labs: Laboratory Tests Range/Units 07/27/20 07/27/20 07/27/20 08:24 08:24 08:24 WBC (4.4-10.8) 10^3/uL 6.17 RBC (4.36-5.78) 10^6/uL 4.51 Hgb (13.5-17.5) g/dL 13.4 L Hct (40.0-50.0) % 41.9 MCV (80-95) fL 92.9 MCH (27.0-33.0) pg 29.7 MCHC (32.0-36.0) % 32.0 RDW (11.8-14.1) % 15.1 H Plt Count (130-400) 10^3/uL 211 MPV (8.0-11.0) fL 12.8 H Immature Gran % 0.6 Neutrophils % 54.1 Lymphocytes % 35.2 Monocytes % 8.6 Eosinophils % 1.0 Basophils % 0.5 Nucleated RBC % % 0 Absolute Neutrophils (1.2-6.7) 10^3/uL 3.34 Absolute Lymphocytes (1.2-3.4) 10^3/uL 2.17 Absolute Monocytes (0.1-0.8) 10^3/uL 0.53 Absolute Eosinophils (0.0-0.7) 10^3/uL 0.06 Absolute Basophils (0.0-0.2) 10^3/uL 0.03 PT (9.3-11.0) sec 11.0 INR (0.9-1.1) 1.1 Sodium (136-145) mmol/L 143 Potassium (3.5-5.1) mmol/L 4.2 Chloride (98-107) mmol/L 108 H Carbon Dioxide (21.0-32.0) mmol/L 20.7 L Anion Gap (3-11) mmol/L 14.3 H BUN (7-18) mg/dL 18 Creatinine (0.70-1.30) mg/dL 1.66 H Estimated GFR/1.73 m2 (mL/min/1.73m2) 41.65 Glucose (74-106) mg/dL 129 H Calcium (8.5-10.1) mg/dL 7.9 L Magnesium (1.8-2.4) mg/dL 1.1 L Total Bilirubin (0.2-1.0) mg/dL 0.4 AST (15-37) U/L 49 H ALT (16-63) U/L 58 Alkaline Phosphatase (46-116) U/L 134 H Total Protein (6.4-8.2) g/dL 7.4 Albumin (3.4-5.0) g/dL 3.4 Urine Opiates Screen (Negative) Urine Methadone Screen (Negative) Ur Barbiturates Screen (Negative) Ur Tricyclics Screen (Negative) Ur Amphetamines Screen (Negative) U Benzodiazepines Scrn (Negative) Urine Cocaine Screen (Negative) Ur THC Screen (Negative) Ethyl Alcohol (<3) mg/dL < 3.0 Range/Units 07/27/20 09:25 WBC (4.4-10.8) 10^3/uL RBC (4.36-5.78) 10^6/uL Hgb (13.5-17.5) g/dL Hct (40.0-50.0) % MCV (80-95) fL MCH (27.0-33.0) pg MCHC (32.0-36.0) % RDW (11.8-14.1) % Plt Count (130-400) 10^3/uL MPV (8.0-11.0) fL Immature Gran % Neutrophils % Lymphocytes % Monocytes % Eosinophils % Basophils % Nucleated RBC % % Absolute Neutrophils (1.2-6.7) 10^3/uL Absolute Lymphocytes (1.2-3.4) 10^3/uL Absolute Monocytes (0.1-0.8) 10^3/uL Absolute Eosinophils (0.0-0.7) 10^3/uL Absolute Basophils (0.0-0.2) 10^3/uL PT (9.3-11.0) sec INR (0.9-1.1) Sodium (136-145) mmol/L Potassium (3.5-5.1) mmol/L Chloride (98-107) mmol/L Carbon Dioxide (21.0-32.0) mmol/L Anion Gap (3-11) mmol/L BUN (7-18) mg/dL Creatinine (0.70-1.30) mg/dL Estimated GFR/1.73 m2 (mL/min/1.73m2) Glucose (74-106) mg/dL Calcium (8.5-10.1) mg/dL Magnesium (1.8-2.4) mg/dL Total Bilirubin (0.2-1.0) mg/dL AST (15-37) U/L ALT (16-63) U/L Alkaline Phosphatase (46-116) U/L Total Protein (6.4-8.2) g/dL Albumin (3.4-5.0) g/dL Urine Opiates Screen (Negative) Negative Urine Methadone Screen (Negative) Negative Ur Barbiturates Screen (Negative) Negative Ur Tricyclics Screen (Negative) Negative Ur Amphetamines Screen (Negative) Negative U Benzodiazepines Scrn (Negative) Negative Urine Cocaine Screen (Negative) Negative Ur THC Screen (Negative) Positive A Ethyl Alcohol (<3) mg/dL ECG Data Attestation: I personally reviewed and interpreted this ECG (s) as follows: (Please see report, sinus tachycardia 104 bpm, peaked appearance to T waves V3 to V5) HPI General Mode of arrival: EMS. Date/Time Provider Initiated Documentation: 07/27/20 08:08. Limitations to Documentation: altered mental status. Information obtained by: EMS. HPI Narrative: 65-year-old male with multiple medical problems including history of bipolar disorder, chronic kidney disease, hypertension, Crohn's disease, tubular adenoma of the colon, status post colostomy placement, alcoholic peripheral neuropathy, presents with chief complaint of altered mental status. Patient has poor recollection of events this morning which limits history and review of systems. He notes that he remembers waking up in the ambulance and feeling confused. Per EMS, patient's friend called after observing patient having full body shaking while seated in a chair. EMS note on arrival patient was quite confused and during transport has become more oriented. Friend is unsure as to how long seizure activity lasted. Patient denies prior history of seizure. Patient denies pain. Patient states his last alcoholic beverage was last evening. He typically drinks 3-4 large beers per day. He states he usually starts drinking around 11 AM. He has not yet had any alcohol this morning. Related Data Home Medications Medication Instructions Recorded Confirmed mirtazapine [Remeron SolTab] 45 mg PO HS tab-cap 09/12/12 07/27/20 aspirin 81 mg PO DAILY tab 10/17/12 07/27/20 acetaminophen 650 mg PO Q4H PRN #30 tab-cap 08/23/16 07/27/20 Yaritza-Donner Original 1 ea PO PRN 01/19/17 07/27/20 loperamide 4 mg PO QID PRN #100 tab-cap 02/08/17 07/27/20 atenolol 100 mg tablet 100 mg PO DAILY #90 tab-cap 01/08/20 07/27/20 atorvastatin 80 mg tablet 80 mg PO DAILY #90 tab 01/08/20 07/27/20 cilostazol 50 mg tablet 50 mg PO BID #180 tab-cap 01/08/20 07/27/20 gabapentin 600 mg tablet 600 mg PO TID #270 tab 01/08/20 07/27/20 pantoprazole 40 mg tablet,delayed 40 mg PO DAILY #90 tab-cap 01/08/20 07/27/20 release albuterol sulfate 90 mcg/actuation 1 - 2 puff INHALATION Q4H PRN PRN 04/15/20 07/27/20 aerosol inhaler #1 inhaler loratadine 10 mg tablet 10 mg PO DAILY #90 tab-cap 04/15/20 07/27/20 quetiapine 200 mg tablet 400 mg PO BID tab 04/15/20 07/27/20 coloplast elastic barrier strips #20 ea 06/24/20 07/27/20 coloplast sensura convex pouch #20 ea 06/24/20 07/27/20 divalproex 125 mg capsule,delayed 500 mg PO BID cap 08/04/20 release sprinkle Previous Rx's Medication Instructions Recorded atenolol 100 mg tablet 100 mg PO DAILY #90 tab-cap 01/08/20 atorvastatin 80 mg tablet 80 mg PO DAILY #90 tab 01/08/20 cilostazol 50 mg tablet 50 mg PO BID #180 tab-cap 01/08/20 gabapentin 600 mg tablet 600 mg PO TID #270 tab 01/08/20 pantoprazole 40 mg tablet,delayed 40 mg PO DAILY #90 tab-cap 01/08/20 release albuterol sulfate 90 mcg/actuation 1 - 2 puff INHALATION Q4H PRN PRN 04/15/20 aerosol inhaler #1 inhaler loratadine 10 mg tablet 10 mg PO DAILY #90 tab-cap 04/15/20 coloplast elastic barrier strips #20 ea 06/24/20 coloplast sensura convex pouch #20 ea 06/24/20 Allergies Allergy/AdvReac Type Severity Reaction Status Date / Time infliximab [From Remicade] Allergy Unknown rash, Verified 08/19/20 12:25 flushing lamotrigine Allergy Unknown Rash Verified 08/19/20 12:25 hydromorphone HCl AdvReac Intermediate itching Verified 08/19/20 12:25 [From Dilaudid] General Stated Complaint: Seizure RANDALL: 3 Review of Systems All systems reviewed & are unremarkable except as noted in HPI and below Constitutional Constitutional: Denies fever(s) Neurologic Neurologic: Reports as per HPI [facility] Medical History (Updated 08/19/20 @ 22:30 by Gertrudis Uribe MD) Acute kidney injury Acute kidney injury (07/31/16) Alcohol abuse Alcoholic peripheral neuropathy Bipolar disorder Brain mass meningioma Chest pain, non-cardiac (08/10/16) negative enzymes, normal dobutamine stress echo 08/2016 Cardiac catheterization 08/30/2016: Non-obstructive CAD Crohn disease Essential hypertension Ileostomy present PVD (peripheral vascular disease) Tobacco abuse Tubular adenoma of colon Surgical History (Updated 08/04/20 @ 15:39 by Mimi Morrell RN) Angioplasty (09/27/12) Right external iliac and common iliac arteries Colonoscopy - IV Sedation (04/29/15) 3mm polyp in transverse colon coronary angiography (08/30/16) L heart catheterization [facility] [place]leoscopy (07/13/17) 06/16/[address] Duran Haskins, recommendation to repeat in 1 year. Report scanned PARTIAL ILEAL COLECTOMY AND DLI (08/10/16) Stent placement (09/27/12) RIght external iliac and common iliac arteries Family History Mother Essential hypertension Diabetes Heart disease Stroke Social History Smoking/Tobacco Use Status: Current every day Tobacco: How many years used: 40 Smoking risk assessment performed?: Yes Alcohol Intake: current Alcohol Intake frequency: 3 or more drinks per day Alcohol type: beer Drug use: Occasionally Substance use type: marijuana Household members: none Housing: apartment Number of Children: 2 Communication Needs: None Pets and animals: Yes Pets and animals: cat(s) What type of physical activity do you participate in: walking Seatbelt use: always Drive intox or ride w/intox milk driver: No Water heater temp set <120 deg: Yes Working smoke detector in home: Yes Fire extinguisher in home: Yes Carbon monox detector in home: Yes Do you feel safe at home: Yes Do you feel safe in your relationship?: Yes Exam Const General: cooperative and no acute distress [facility] Head: normocephalic and atraumatic Mouth: moist mucous membranes Eyes Conjunctivae: normal conjunctivae Sclera: normal sclerae EOM: EOM intact bilaterally Neck Neck: trachea midline and supple Resp Auscultation: clear to auscultation bilaterally, no rales, no rhonchi and no wheezes Cardio Rate: tachycardic Rhythm: regular rhythm GI Palpation: soft, not firm, no guarding, no masses, not rigid and nontender Skin General skin exam: no rashes or lesions noted Neuro General: patient alert, patient awake, patient oriented x3 and tone normal Cranial Nerves: CN's II-XI intact bilaterally Speech: speech normal Motor: strength 5/5 throughout Sensory Exam: no sensory deficits noted Extrem General: no edema Psych Appearance: grossly normal Mental Status: mental status grossly normal Speech and Movement: speech and movement normal Course Vital Signs Vital signs: Vital Signs Temperature 36.4 C L 07/27/20 07:59 Pulse 110 H 07/27/20 07:59 Respiratory Rate 20 07/27/20 07:59 Blood Pressure 130/102 H 07/27/20 07:59 Pulse Oximetry 95 07/27/20 07:59 Temperature 36.4 C L 07/27/20 07:59 Temperature Source Temporal Artery Scan 07/27/20 07:59 Pulse 110 H 07/27/20 07:59 Respiratory Rate 20 07/27/20 07:59 Respiratory Effort Non-Labored 07/27/20 08:05 Respiratory Pattern Normal 07/27/20 08:05 Blood Pressure 130/102 H 07/27/20 07:59 Blood Pressure Position Supine 07/27/20 07:59 Pulse Oximetry 95 07/27/20 07:59 Oxygen Delivery Method Room Air 07/27/20 07:59 Oxygen Flow Rate 0 07/27/20 07:59 Pain Level 0 07/27/20 07:59
[2020-07-27] MEDS: THIAMINE 100 MG in Normal Saline 100 ML 200 MG IVPB (08:41)
[2020-07-27 08:45] LABS: INR 1.1 (0.9-1.1)
[2020-07-27 08:47] LABS: ALT 58 U/L (16-63); AST 49 U/L (15-37); Albumin 3.4 g/dL (3.4-5.0); Alkaline Phosphatase 134 U/L (46-116); Anion Gap 14.3 mmol/L (3-11); BUN 18 mg/dL (7-18); Bilirubin, Total 0.4 mg/dL (0.2-1.0); CO2 20.7 mmol/L (21.0-32.0); CREATININE 1.66 mg/dL (0.70-1.30); Calcium 7.9 mg/dL (8.5-10.1); Chloride 108 mmol/L (98-107); Estimated GFR 41.65 (mL/min/1.73m2); Glucose 129 mg/dL (74-106); Magnesium 1.1 mg/dL (1.8-2.4); Potassium 4.2 mmol/L (3.5-5.1); Sodium 143 mmol/L (136-145); Total Protein 7.4 g/dL (6.4-8.2)
[2020-07-27 09:05] LABS: ETHANOL BLOOD < 3.0 mg/dL (<3)
[2020-07-27 09:29] LABS: Abs Immature Grans 0.04 10^3/uL (0.0-0.06); Absolute Basophil Count 0.03 10^3/uL (0.0-0.2); Absolute Eosinophil Count 0.06 10^3/uL (0.0-0.7); Absolute Lymphocyte Count 2.17 10^3/uL (1.2-3.4); Absolute Monocyte Count 0.53 10^3/uL (0.1-0.8); Absolute Neutrophil Count 3.34 10^3/uL (1.2-6.7); Basophils % 0.5; HCT 41.9 % (40.0-50.0); HGB 13.4 g/dL (13.5-17.5); Immature Grans % 0.6; Lymphocytes % 35.2; MCH 29.7 pg (27.0-33.0); MCV 92.9 fL (80-95); MPV 12.8 fL (8.0-11.0); Monocytes % 8.6; Neutrophils % 54.1; Nucleated RBC 0 %; Platelet Count 211 10^3/uL (130-400); RBC 4.51 10^6/uL (4.36-5.78); RDW 15.1 % (11.8-14.1); RDW-SD 51.7 fL; WBC 6.17 10^3/uL (4.4-10.8)
--- NOTE | 2020-07-27 09:40 | DI.CT_ITS ---
EXAM: CT HEAD WO CLINICAL HISTORY: seizure like activity. TECHNIQUE: Imaging Protocol: Axial computed tomography images with coronal and sagittal reformatted images were created and reviewed COMPARISON: No exams were available for comparison FINDINGS: Ventricles and Extra axial spaces: There is a slightly hyperdense mass seen in the anterior cranial f ruth. It measures 6.5 cm transverse by 5.7 cm AP by 3.6 cm craniocaudad. It is centered in the midl ine of the anterior cranial fossa. It exerts mass effect on the anterior horns of both lateral ventr icles. There is decreased attenuation in the adjacent white matter likely representing edema. There does appear to be mild prominence of the 3rd ventricle and mild prominence of the lateral ventricles . Hemorrhage: None. Cerebral parenchyma: Please see the above discussion under ventricles and extra-axial spaces. Midline shift: None. Brainstem/Cerebellum: Normal. Calvarium: Normal. Visualized Paranasal sinuses/Mastoids: Clear. Soft Tissues: Unremarkable. IMPRESSION: 1. 6.5 x 5.7 x 3.6 cm anterior cranial fossa mass. Primary concern is for an extra-axial mass such a s a meningioma. However glioma or other or metastatic disease should be considered. MRI without and with contrast should be obtained for further evaluation. 2. No acute intracranial hemorrhage or territorial infarct. RADIATION DOSE DELIVERED: 765.86mGy.cm Total DLP DATA REPOSITORY: All CT scans at this facility are submitted to the National Radiology Data Registry (NRDR) Dose Index Registry (DIR) with the [employer] ([employer]). RADIATION OPTIMIZATION: All CT scans at this facility use at least one of these dose optimization te chniques: automated exposure control; mA and/or kV adjustment per patient size (includes targeted exa ms where dose is matched to clinical indication); or iterative reconstruction.
[2020-07-27 09:54] LABS: *AMPHETAMINES SCREEN URINE Negative (Negative); *BARBITURATES SCREEN URINE Negative (Negative); *BENZODIAZEPINES SCREEN URINE Negative (Negative); Cannabinoids THC POSITIVE (Negative); Cocaine Screen,Urine Negative (Negative); METHADONE URINE SCREEN Negative (Negative); OPIATES URINE SCREEN Negative (Negative)
[2020-07-27 09:59] LABS: Tricyclic Antidepressants Negative (Negative)
[2020-07-27] MEDS: MAGNESIUM SULFATE 2 GM/50 ML BAG IVPB (09:59)
--- NOTE | 2020-07-27 10:01 | DI.VRAD_ITS ---
Addendum created by Vitaliy Suarez MD on 07/27/2020 10:06:51 AM EST: THIS REPORT CONTAINS FINDINGS THAT MAY BE CRITICAL TO PATIENT CARE. The findings were verbally communicated via telephone conference with BALDEV NAQVI at 10:06 AM EST on 07/27/2020. The findings were acknowledged and understood. Initial report created on 07/27/2020 10:00:15 AM EST: PROCEDURE INFORMATION: Exam: CT Head Without Contrast Exam date and time: 07/27/2020 8:11 AM Age: 65 years old Clinical indication: Other: Seizure like activity TECHNIQUE: Imaging protocol: Computed tomography of the head without contrast. Radiation optimization: All CT scans at this facility use at least one of these dose optimization techniques: automated exposure control; mA and/or kV adjustment per patient size (includes targeted exams where dose is matched to clinical indication); or iterative reconstruction. COMPARISON: No relevant prior studies available. FINDINGS: Brain: Today's examination demonstrates no convincing evidence of acute hemorrhage or acute territorial infarct. Mild diffuse involutional change in the brain for age. There is a large mass, slightly hyperdense to chinchilla matter, centered in the anterior cranial fossa bilaterally. This measures 6.8 x 3.0 x 4.4 cm. There is mild surrounding edema. I would favor an extra-axial lesion such as a meningioma although the differential diagnosis would include glioma or possibly lymphoma. Mass-effect upon the frontal lobes and the anterior corpus callosum. Cerebral ventricles: Minimal prominence of the lateral ventricles. Mild mass effect upon the ventricles. Bones/joints: Unremarkable. No acute fracture. Paranasal sinuses: Visualized sinuses are unremarkable. No fluid levels. Mastoid air cells: Visualized mastoid air cells are well aerated. Vasculature: Vascular calcifications approach the [id number]. Soft tissues: Unremarkable. IMPRESSION: Anterior cranial fossa mass as above. MRI with contrast is recommended. Dictated and Authenticated by: Vitaliy Suarez MD. Ordering:FREDY Flores MD
[2020-07-27] MEDS: levETIRAcetam 1,000 MG in Normal Saline 100 ML 400 MG IVPB (10:14)
[2020-07-27] MEDS: Normal Saline Flush 10 ML SYR IVP ×2 (10:15→13:25)
[2020-07-27] MEDS: Dexamethasone 10 MG/ML VIAL IVP (11:34)
[2020-07-27] MEDS: Gabapentin 300 MG CAP 600 MG PO (11:47)
[2020-07-27] MEDS: LORazepam 2 MG/ML VIAL 1 MG IVP (13:24)
== END 2020-07-27 14:18 | disposition short-term general hospital (02) ==
PROVIDERS: Emergency Provider Student in an Organized Health Care Education/Training Program; PCP Internal Medicine
DX: R90.0 Intracranial space-occupying lesion found on diagnostic imaging of central nervous system (principal); R56.9 Unspecified convulsions; I12.9 Hypertensive chronic kidney disease with stage 1 through stage 4 chronic kidney disease, or unspecified chronic kidney disease; N18.9 Chronic kidney disease, unspecified
CPT/HCPCS: 36415; 36416; 80053; 80307; 82962; 93005; 96365; 96367; 96368; 96375; 99285; 70450; 80320; 83735; 85025; 85610; 93010; J1100; J1953; J2060

== ENCOUNTER 2020-10-30 11:07 | Observation (INO) | payer MEDICARE, MEDICAID, SELFPAY ==
[2020-10-30] VITALS (90 sets, daily range): BP systolic 67–155; BP diastolic 40–95; PULSE 62–115; RESP 11–41; TEMP 36.5–37.5; O2SAT 84–100
--- NOTE | 2020-10-30 11:15 | RT.EKG_ITS ---
APPROVED REPORT Exam: Resting ECG Patient Location: E HR:78 bpm ECG Measurements Heart Rate 78 AXIS [place] 171 P 59 QRSd 79 QRS -10 QT 333 T 66 QTc 378 Conclusion Sinus rhythm...normal P axis, V-rate 60- 99 Low voltage, extremity leads...all extremity leads <0.5mV I have reviewed and interpreted ECG and agree with software generated interpretation.
--- NOTE | 2020-10-30 11:15 | DI.RAD_ITS ---
EXAM: XR PORTABLE CHEST AP CLINICAL HISTORY: cough. TECHNIQUE: 2D digital imaging was performed. COMPARISON: CR CHEST 2 VIEWS PA,LAT from 01/20/2017 FINDINGS: Heart size is normal. The mediastinum is not widened. Right lung is clear. There is a small nodular density in the left lung base which is unchanged from 2017 and therefore benign. IMPRESSION: No acute pulmonary findings on this single AP portable view of the chest. Small nodule left lung base is unchanged from 2017. DATA REPOSITORY: RADIATION DOSE DELIVERED: All CT scans at this facility use at least one of these dose optimization techniques: automated exposure control; mA and/or kV adjustment per patient size (includes targeted e xams where dose is matched to clinical indication); or iterative reconstruction.
--- NOTE | 2020-10-30 11:57 | W.ED.GENAD ---
Discharge Plan Disposition Patient Disposition: [facility] INPATIENT Condition: Serious Discharge Details Clinical Impression: Hyperkalemia, Weakness Primary Care Provider: Gertrudis Uribe ED Provider: Mark Sanchez Home Meds and New Rx's Prescriptions: No Action divalproex 125 mg capsule, delayed rel sprinkle 500 mg PO BID RF: 0 atenolol 100 mg tablet 100 mg PO DAILY Qty: 90 RF: 3 atorvastatin 80 mg tablet 80 mg PO DAILY Qty: 90 RF: 3 cilostazol 50 mg tablet 50 mg PO BID Qty: 180 RF: 3 Hold Instructions: restart 08/08/20 per [facility] d/c gabapentin 600 mg tablet 600 mg PO TID Qty: 270 RF: 3 pantoprazole 40 mg tablet,delayed release (DR/EC) 40 mg PO DAILY Qty: 90 RF: 3 loratadine 10 mg tablet 10 mg PO DAILY Qty: 90 RF: 3 albuterol sulfate [Proventil HFA] 90 mcg/actuation HFA aerosol inhaler 1 - 2 puff Inhalation Q4H PRN PRN (Reason: shortness of breath or wheezing) Qty: 1 RF: 2 alprazolam 0.5 mg tablet 0.5 mg PO .COMPLEX PRN (Reason: MRI Claustrophobia) Qty: 3 RF: 0 mirtazapine [Remeron SolTab] 45 MG tablet,disintegrating 45 mg PO HS RF: 0 aspirin 81 MG tablet,delayed release (DR/EC) 81 mg PO DAILY RF: 0 Hold Instructions: restart 08/08/20 per [facility] d/c acetaminophen 325 MG tablet 650 mg PO Q4H PRN Qty: 30 RF: 3 Yaritza-Neche Original 1 EACH tablet, effervescent 1 ea PO PRN RF: 0 loperamide 2 MG capsule 4 mg PO QID PRNQty: 100 RF: 5 (DME) coloplast elastic barrier strips See Rx Instructions .Route .MEDSUPPLY Qty: 20 RF: 12 (DME) coloplast sensura convex pouch See Rx Instructions .Route .MEDSUPPLY Qty: 20 RF: 12 quetiapine [Seroquel] 200 mg tablet 400 mg PO BID RF: 0 celecoxib 200 mg Capsule 200 mg PO BID RF: 0 divalproex [Depakote] 500 mg Tablet,Delayed Release (Dr/Ec) 1,000 mg PO BID RF: 0 Medical Decision Making <ANTONIETTA Shepard - Last Filed: 10/30/20 16:14> 65-year-old gentleman with significant past medical history presents for concern of Covid exposure but denies worsening shortness of breath, cough, fever. Patient reports worsening generalized weakness especially in his legs with increasing neuropathy. Given his age, multiple comorbidities, a single troponin, EKG and routine laboratory values will be obtained. Given his O2 sats are in the high 90s on room air a send out Covid was obtained. The EKG was read by Dr. Clarke, please see her official report. Sinus rhythm, ventricular rate of 78. Slightly elevated T waves I was called with a critical lab value of potassium of 8.4. Glucose was 70. Sodium 133 creatinine 2.2 with a GFR of 30. Valproic acid 69.9, troponin less than 0.05. Given his glucose of 70, he will receive an amp of glucose and we will infuse D10 prior to giving insulin 10 units IV. In the meantime he will be given Lokelma, and albuterol neb, and calcium gluconate. Given patient will require admission for his hyperkalemia, I have added on an in-house Covid test Repeat fingerstick 129, D10 infusing Chest x-ray unremarkable I discussed the case with our hospitalist team, Dr. Maza, who would like a redraw of the potassium before he considers admission Redraw was hemolyzed Redraw of potassium is 7.0. Care was signed out with work-up completed in the ER to Dr. Sanchez pending admission. Medical Records Medical records reviewed: Yes I reviewed the patient's medical records. Imaging Data Radiologic Study: Attestation: I personally reviewed and interpreted this imaging study as follows: Imaging: X-Ray Radiologist's impression: Chest neg Lab Data Lab results reviewed: Yes I reviewed the patient's lab results. Labs: Laboratory Tests Range/Units 10/30/20 10/30/20 10/30/20 12:20 12:40 12:40 WBC (4.4-10.8) 10^3/uL 7.37 RBC (4.36-5.78) 10^6/uL 4.78 Hgb (13.5-17.5) g/dL 13.7 Hct (40.0-50.0) % 45.2 MCV (80-95) fL 94.6 MCH (27.0-33.0) pg 28.7 MCHC (32.0-36.0) % 30.3 L RDW (11.8-14.1) % 13.3 Plt Count (130-400) 10^3/uL 301 MPV (8.0-11.0) fL 12.4 H Immature Gran % 0.4 Neutrophils % 49.2 Lymphocytes % 37.9 Monocytes % 10.0 Eosinophils % 2.0 Basophils % 0.5 Nucleated RBC % % 0 Absolute Neutrophils (1.2-6.7) 10^3/uL 3.62 Absolute Lymphocytes (1.2-3.4) 10^3/uL 2.79 Absolute Monocytes (0.1-0.8) 10^3/uL 0.74 Absolute Eosinophils (0.0-0.7) 10^3/uL 0.15 Absolute Basophils (0.0-0.2) 10^3/uL 0.04 Sodium (136-145) mmol/L 133 L Potassium (3.5-5.1) mmol/L 8.4 H* Chloride (98-107) mmol/L 107 Carbon Dioxide (21.0-32.0) mmol/L 18.9 L Anion Gap (3-11) mmol/L 7.1 BUN (7-18) mg/dL 49 H Creatinine (0.70-1.30) mg/dL 2.2 H Estimated GFR/1.73 m2 (mL/min/1.73m2) 30.10 Glucose (74-106) mg/dL 70 L Calcium (8.5-10.1) mg/dL 8.9 Magnesium (1.8-2.4) mg/dL Total Bilirubin (0.2-1.0) mg/dL 0.3 AST (15-37) U/L 27 ALT (16-63) U/L 28 Alkaline Phosphatase (46-116) U/L 105 Troponin I (<0.06) ng/mL Total Protein (6.4-8.2) g/dL 8.4 H Albumin (3.4-5.0) g/dL 3.9 Urine Color (Yellow) Yellow Urine Clarity (Clear) Clear Urine pH (5-8) 5.5 Ur Specific [place] (1.005-1.025) >= 1.030 H Urine Protein (Negative) mg/dL Negative Urine Ketones (Negative) mg/dL Negative Urine Blood (Negative) Negative Urine Nitrite (Negative) Negative Urine Bilirubin (Negative) Negative Urine Urobilinogen (Up TO 0.2) EU/dL 0.2 Ur Leukocyte Esterase (Negative) Negative Urine Glucose (Negative) mg/dL Negative Valproic Acid (50-100) ug/mL COVID-19 Source SARS-CoV-2 (PCR) (Negative) Range/Units 10/30/20 10/30/20 10/30/20 12:40 12:40 12:40 WBC (4.4-10.8) 10^3/uL RBC (4.36-5.78) 10^6/uL Hgb (13.5-17.5) g/dL Hct (40.0-50.0) % MCV (80-95) fL MCH (27.0-33.0) pg MCHC (32.0-36.0) % RDW (11.8-14.1) % Plt Count (130-400) 10^3/uL MPV (8.0-11.0) fL Immature Gran % Neutrophils % Lymphocytes % Monocytes % Eosinophils % Basophils % Nucleated RBC % % Absolute Neutrophils (1.2-6.7) 10^3/uL Absolute Lymphocytes (1.2-3.4) 10^3/uL Absolute Monocytes (0.1-0.8) 10^3/uL Absolute Eosinophils (0.0-0.7) 10^3/uL Absolute Basophils (0.0-0.2) 10^3/uL Sodium (136-145) mmol/L Potassium (3.5-5.1) mmol/L Chloride (98-107) mmol/L Carbon Dioxide (21.0-32.0) mmol/L Anion Gap (3-11) mmol/L BUN (7-18) mg/dL Creatinine (0.70-1.30) mg/dL Estimated GFR/1.73 m2 (mL/min/1.73m2) Glucose (74-106) mg/dL Calcium (8.5-10.1) mg/dL Magnesium (1.8-2.4) mg/dL 2.2 Total Bilirubin (0.2-1.0) mg/dL AST (15-37) U/L ALT (16-63) U/L Alkaline Phosphatase (46-116) U/L Troponin I (<0.06) ng/mL < 0.05 Total Protein (6.4-8.2) g/dL Albumin (3.4-5.0) g/dL Urine Color (Yellow) Urine Clarity (Clear) Urine pH (5-8) Ur Specific [place] (1.005-1.025) Urine Protein (Negative) mg/dL Urine Ketones (Negative) mg/dL Urine Blood (Negative) Urine Nitrite (Negative) Urine Bilirubin (Negative) Urine Urobilinogen (Up TO 0.2) EU/dL Ur Leukocyte Esterase (Negative) Urine Glucose (Negative) mg/dL Valproic Acid (50-100) ug/mL 69.9 COVID-19 Source SARS-CoV-2 (PCR) (Negative) Range/Units 10/30/20 10/30/20 13:40 15:30 WBC (4.4-10.8) 10^3/uL RBC (4.36-5.78) 10^6/uL Hgb (13.5-17.5) g/dL Hct (40.0-50.0) % MCV (80-95) fL MCH (27.0-33.0) pg MCHC (32.0-36.0) % RDW (11.8-14.1) % Plt Count (130-400) 10^3/uL MPV (8.0-11.0) fL Immature Gran % Neutrophils % Lymphocytes % Monocytes % Eosinophils % Basophils % Nucleated RBC % % Absolute Neutrophils (1.2-6.7) 10^3/uL Absolute Lymphocytes (1.2-3.4) 10^3/uL Absolute Monocytes (0.1-0.8) 10^3/uL Absolute Eosinophils (0.0-0.7) 10^3/uL Absolute Basophils (0.0-0.2) 10^3/uL Sodium (136-145) mmol/L Potassium (3.5-5.1) mmol/L 7.0 H* Chloride (98-107) mmol/L Carbon Dioxide (21.0-32.0) mmol/L Anion Gap (3-11) mmol/L BUN (7-18) mg/dL Creatinine (0.70-1.30) mg/dL Estimated GFR/1.73 m2 (mL/min/1.73m2) Glucose (74-106) mg/dL Calcium (8.5-10.1) mg/dL Magnesium (1.8-2.4) mg/dL Total Bilirubin (0.2-1.0) mg/dL AST (15-37) U/L ALT (16-63) U/L Alkaline Phosphatase (46-116) U/L Troponin I (<0.06) ng/mL Total Protein (6.4-8.2) g/dL Albumin (3.4-5.0) g/dL Urine Color (Yellow) Urine Clarity (Clear) Urine pH (5-8) Ur Specific [place] (1.005-1.025) Urine Protein (Negative) mg/dL Urine Ketones (Negative) mg/dL Urine Blood (Negative) Urine Nitrite (Negative) Urine Bilirubin (Negative) Urine Urobilinogen (Up TO 0.2) EU/dL Ur Leukocyte Esterase (Negative) Urine Glucose (Negative) mg/dL Valproic Acid (50-100) ug/mL COVID-19 Source Nasal/nares SARS-CoV-2 (PCR) (Negative) Negative ECG Data Attestation: I personally reviewed and interpreted this ECG (s) as follows: Interpretation: Official report by Dr. Clarke. Sinus rhythm, ventricular rate 78, slightly elevated T wave <Mark Sanchez MD - Last Filed: 10/30/20 17:57> Care signed out by ANTONIETTA Pimentel, please see ANTONIETTA Pimentel's documentation regarding initial ED presentation and course. Plan at signout was to follow-up on conversation with hospitalist regarding admission. Repeat potassium still elevated but improved. I reviewed rhythm strip and patient has had no significant arrhythmias. I called and spoke with hospitalist Dr. Mejia, discussed ED course, he will admit the patient. Lab Data Lab results reviewed: Yes I reviewed the patient's lab results. HPI <ANTONIETTA Shepard - Last Filed: 10/30/20 16:14> General Mode of arrival: ambulatory. Date/Time Provider Initiated Documentation: 10/30/20 11:09. Limitations to Documentation: no limitations. Information obtained by: patient. HPI Narrative: This is a 65-year-old gentleman with past medical history that includes peripheral neuropathy, bipolar disorder, hypertension, Crohn's disease, seizures, PVD, current smoker, tubular adenoma of colon, angioplasty, partial ileocolectomy with colostomy. 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 He reports chronic cough and shortness of breath secondary to smoking but is concerned about Covid exposure. He denies any fever, worsening shortness of breath, chest pain. He reports overall he has not felt well in the past 4 days, cannot exactly explain what this means. Reports generalized weakness, worse in his legs, and he believes that his peripheral neuropathy is worse than baseline as well. He is on gabapentin but feels as though his peripheral neuropathy is not very well maintained. He denies recent illness or trauma. He does want to talk with his primary care provider regarding his gabapentin. Related Data Home Medications Medication Instructions Recorded Confirmed mirtazapine [Remeron SolTab] 45 mg PO HS tab-cap 09/12/12 10/30/20 aspirin 81 mg PO DAILY tab 10/17/12 10/30/20 acetaminophen 650 mg PO Q4H PRN #30 tab-cap 08/23/16 10/30/20 Yaritza-Neche Original 1 ea PO PRN 01/19/17 07/27/20 loperamide 4 mg PO QID PRN #100 tab-cap 02/08/17 10/30/20 atenolol 100 mg tablet 100 mg PO DAILY #90 tab-cap 01/08/20 10/30/20 atorvastatin 80 mg tablet 80 mg PO DAILY #90 tab 01/08/20 10/30/20 cilostazol 50 mg tablet 50 mg PO BID #180 tab-cap 01/08/20 10/30/20 gabapentin 600 mg tablet 600 mg PO TID #270 tab 01/08/20 10/30/20 pantoprazole 40 mg tablet,delayed 40 mg PO DAILY #90 tab-cap 01/08/20 10/30/20 release albuterol sulfate 90 mcg/actuation 1 - 2 puff INHALATION Q4H PRN PRN 04/15/20 10/30/20 aerosol inhaler #1 inhaler loratadine 10 mg tablet 10 mg PO DAILY #90 tab-cap 04/15/20 10/30/20 quetiapine 200 mg tablet 400 mg PO BID tab 10/06/20 04/22/21 coloplast elastic barrier strips #20 ea 06/24/20 07/27/20 coloplast sensura convex pouch #20 ea 06/24/20 07/27/20 divalproex 125 mg capsule,delayed 500 mg PO BID cap 08/04/20 release sprinkle alprazolam 0.5 mg tablet 0.5 mg PO .COMPLEX PRN #3 tab-cap 09/16/20 09/16/20 celecoxib 200 mg PO BID 10/30/20 10/30/20 divalproex [Depakote] 1,000 mg PO BID 10/30/20 10/30/20 Previous Rx's Medication Instructions Recorded atenolol 100 mg tablet 100 mg PO DAILY #90 tab-cap 01/08/20 atorvastatin 80 mg tablet 80 mg PO DAILY #90 tab 01/08/20 cilostazol 50 mg tablet 50 mg PO BID #180 tab-cap 01/08/20 gabapentin 600 mg tablet 600 mg PO TID #270 tab 01/08/20 pantoprazole 40 mg tablet,delayed 40 mg PO DAILY #90 tab-cap 01/08/20 release albuterol sulfate 90 mcg/actuation 1 - 2 puff INHALATION Q4H PRN PRN 04/15/20 aerosol inhaler #1 inhaler loratadine 10 mg tablet 10 mg PO DAILY #90 tab-cap 04/15/20 coloplast elastic barrier strips #20 ea 06/24/20 coloplast sensura convex pouch #20 ea 06/24/20 alprazolam 0.5 mg tablet 0.5 mg PO .COMPLEX PRN #3 tab-cap 09/16/20 Allergies Allergy/AdvReac Type Severity Reaction Status Date / Time infliximab [From Remicade] Allergy Unknown rash, Verified 10/30/20 11:26 flushing lamotrigine Allergy Unknown Rash Verified 10/30/20 11:26 hydromorphone HCl AdvReac Intermediate itching Verified 10/30/20 11:26 [From Dilaudid] General Stated Complaint: SOB RANDALL: 2 Review of Systems <ANTONIETTA Shepard - Last Filed: 10/30/20 16:14> Constitutional Constitutional: Denies fatigue and Denies fever(s) ENT Ears, Nose, Mouth, and Throat: Denies neck pain Cardiovascular Cardiovascular: Denies chest pain and Reports dyspnea Respiratory Respiratory: Reports cough and Reports dyspnea Gastrointestinal Gastrointestinal: Denies abdominal pain, Denies nausea and Denies vomiting Genitourinary Genitourinary: Denies dysuria Musculoskeletal Musculoskeletal: Denies neck pain and Reports tingling (Baseline) Integumentary/Breasts Skin/Breast: Denies rash Neurologic Neurologic: Reports weakness (General, worse in legs) Endocrine Endocrine: Denies fatigue Hematologic/Lymphatic Hematologic/Lymphatic: Denies easy bleeding and Denies easy bruising PFS <ANTONIETTA Shepard - Last Filed: 10/30/20 16:14> Medical History Acute kidney injury (07/31/16) Alcohol abuse Alcoholic peripheral neuropathy Bipolar disorder Brain mass meningioma Chest pain, non-cardiac (08/10/16) negative enzymes, normal dobutamine stress echo 08/2016 Cardiac catheterization 08/30/2016: Non-obstructive CAD Crohn disease Essential hypertension Hx of tonic-clonic seizures Ileostomy present PVD (peripheral vascular disease) Tobacco abuse Tubular adenoma of colon Surgical History Angioplasty (09/27/12) Right external iliac and common iliac arteries Colonoscopy - IV Sedation (04/29/15) 3mm polyp in transverse colon coronary angiography (08/30/16) L heart catheterization [facility] Ileoscopy (07/13/17) 06/16/[address] Duran Haskins, recommendation to repeat in 1 year. Report scanned PARTIAL ILEAL COLECTOMY AND DLI (08/10/16) Stent placement (09/27/12) RIght external iliac and common iliac arteries Family History Mother Essential hypertension Diabetes Heart disease Stroke Social History Smoking/Tobacco Use Status: Current every day Tobacco Type: cigarettes Tobacco: How many years used: 55 Smoking risk assessment performed?: Yes Alcohol Intake: former Drug use: Occasionally Substance use type: marijuana Details: only 2 beers since mid july 2020 Household members: none Housing: apartment Number of Children: 2 Communication Needs: None Pets and animals: Yes Pets and animals: cat(s) What type of physical activity do you participate in: walking Seatbelt use: always 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 Water heater temp set <120 deg: Yes Working smoke detector in home: Yes Fire extinguisher in home: Yes Carbon monox detector in home: Yes Do you feel safe at home: Yes Do you feel safe in your relationship?: Yes Exam <ANTONIETTA Shepard - Last Filed: 10/30/20 16:14> Const General: cooperative, healthy appearing, comfortable and no acute distress Orientation: alert, awake and oriented x3 HENMT Head: normal to inspection, normocephalic and atraumatic Face and sinus: normal facial exam Mouth: moist mucous membranes abnormal (slightly dry) Throat: posterior oropharynx normal Eyes General: appearance normal, both eyes and all related structures Conjunctivae: conjunctivae normal Neck Neck: normal visual inspection, full ROM, trachea midline and supple Resp Effort & Inspection: normal respiratory effort and able to speak in complete sentences Auscultation: diminished lung sounds bilaterally in the lower lung narayan (Minimal) Cardio Rate: regular rate Rhythm: regular rhythm GI Inspection: other (Colostomy, brown stool ) Palpation: soft Auscultation: normal bowel sounds Back/Spine/Pelvis Back: No back tenderness Skin General skin exam: no rashes or lesions noted Neuro General: patient alert, patient awake, patient oriented x3, moves all extremities and no focal motor deficits Cranial Nerves: CN's II-XI intact bilaterally Cognition: normal cognition Speech: speech normal Gait: normal gait Motor: muscle tone normal throughout and strength 5/5 throughout Sensory Exam: no sensory deficits noted Extrem General: normal to inspection, full ROM, capillary refill normal, no pedal edema and no calf tenderness Psych Appearance: grossly normal Mental Status: mental status grossly normal Course <ANTONIETTA Shepard - Last Filed: 10/30/20 16:14> Vital Signs Vital signs: Vital Signs Temperature 36.5 C 10/30/20 11:15 Pulse 78 10/30/20 11:15 Respiratory Rate 16 10/30/20 11:15 Blood Pressure 133/85 10/30/20 11:15 Pulse Oximetry 99 10/30/20 11:15 Temperature 36.5 C 10/30/20 11:15 Temperature Source Skin 10/30/20 11:15 Pulse 78 10/30/20 11:15 Respiratory Rate 16 10/30/20 11:15 Respiratory Effort 10/30/20 11:38 Blood Pressure 133/85 10/30/20 11:15 Pulse Oximetry 99 10/30/20 11:15 Oxygen Delivery Method Room Air 10/30/20 11:15 Oxygen Flow Rate 0 10/30/20 11:15 Pain Level 6 10/30/20 11:15 Critical Care Time <ANTONIETTA Shepard - Last Filed: 10/30/20 16:14> Critical Care Time Critical Care Time: Yes Total Critical Care Time: 35 Attestation: Upon my evaluation, this patient had a high probability of clinically significant, life-threatening deterioration due to their current medical conditions, which required my direct attention, intervention, and personal management. I have personally provided greater than 30 minutes of critical care time exclusive of the time spend on separately billable procedures. Time includes obtaining a history, examining the patient, pulse oximetry, review of laboratory data, radiology results, discussion with consultants, arranging urgent treatment with development of a management plan, evaluation of patient's response to treatment, and monitoring for potential decompensation. Interventions were performed as documented above. Sign Out <ANTONIETTA Shepard - Last Filed: 10/30/20 16:14> Sign Out Data: Sign Out Comment: Hospitalist requesting redraw potassium. Initial potassium 8.4. Repeat potassium was hemolyzed. Awaiting additional potassium redraw and admit once labs are completed Last updated by Shashi Pimentel PA at 10/30/20 15:47
[2020-10-30 12:36] LABS: Bilirubin Negative (Negative); Blood Negative (Negative); Clarity Clear (Clear); Glucose Negative (Negative); Ketones Negative (Negative); Leukocyte Esterase Negative (Negative); Nitrite Negative (Negative); Specific Gravity >= 1.030 (1.005-1.025); Urobilinogen 0.2 EU/dL (Up TO 0.2); pH 5.5 (5-8)
[2020-10-30 12:54] LABS: Abs Immature Grans 0.03 10^3/uL (0.0-0.06); Absolute Basophil Count 0.04 10^3/uL (0.0-0.2); Absolute Eosinophil Count 0.15 10^3/uL (0.0-0.7); Absolute Lymphocyte Count 2.79 10^3/uL (1.2-3.4); Absolute Monocyte Count 0.74 10^3/uL (0.1-0.8); Absolute Neutrophil Count 3.62 10^3/uL (1.2-6.7); Basophils % 0.5; HCT 45.2 % (40.0-50.0); HGB 13.7 g/dL (13.5-17.5); Immature Grans % 0.4; Lymphocytes % 37.9; MCH 28.7 pg (27.0-33.0); MCHC 30.3 % (32.0-36.0); MCV 94.6 fL (80-95); MPV 12.4 fL (8.0-11.0); Neutrophils % 49.2; Nucleated RBC 0 %; Platelet Count 301 10^3/uL (130-400); RBC 4.78 10^6/uL (4.36-5.78); RDW 13.3 % (11.8-14.1); RDW-SD 46.1 fL; WBC 7.37 10^3/uL (4.4-10.8)
[2020-10-30 13:12] LABS: Troponin I < 0.05 ng/mL (<0.06)
[2020-10-30 13:15] LABS: ALT 28 U/L (16-63); AST 27 U/L (15-37); Albumin 3.9 g/dL (3.4-5.0); Alkaline Phosphatase 105 U/L (46-116); Anion Gap 7.1 mmol/L (3-11); BUN 49 mg/dL (7-18); Bilirubin, Total 0.3 mg/dL (0.2-1.0); CO2 18.9 mmol/L (21.0-32.0); CREATININE 2.2 mg/dL (0.70-1.30); Calcium 8.9 mg/dL (8.5-10.1); Chloride 107 mmol/L (98-107); Glucose 70 mg/dL (74-106); Sodium 133 mmol/L (136-145); Total Protein 8.4 g/dL (6.4-8.2)
[2020-10-30 13:19] LABS: Potassium 8.4 mmol/L (3.5-5.1)
[2020-10-30] MEDS: Dextrose 50%-Water 25 GM/50 ML SYR IVP ×2 (13:41→14:29)
[2020-10-30] MEDS: DEXTROSE 10%-WATER 500 ML 50 ML IV (13:45)
[2020-10-30 13:51] LABS: Source Nasal/Nares
[2020-10-30 13:57] LABS: Magnesium 2.2 mg/dL (1.8-2.4)
[2020-10-30 14:09] LABS: VALPROIC ACID 69.9 ug/mL (50-100)
[2020-10-30 14:32] LABS: COVID-19 PCR Negative (Negative)
[2020-10-30] MEDS: Insulin REGULAR-Human 100 UNITS/ML UNIT 10 UNITS IV (14:33)
[2020-10-30] MEDS: Sodium Zirconium Cyclosilicate 10 GM PKT PO ×2 (14:34→21:51)
[2020-10-30] MEDS: Albuterol 2.5 MG/3 ML INH SOLN VIAL UPD (14:59)
--- NOTE | 2020-10-30 17:09 | W.PM.HP.N ---
Date of service: 10/30/20 Time of Service: 17:09 Assessment and Plan Assessment and plan (1) Hyperkalemia: Status: Acute Assessment and plan: ddx: hyporenin hyperaldosteronism (type 4 RTA), increased dietary potassium intake in setting of CKD, NSAID use (patient reportedly on Celebrex although he now says that he no longer takes this). Patient is not on any JAYJAY-inhibitor or ARB. Cotinue Lokelma begun in the ER, potassium already has come down to under 7 meq/dL since receiving one dose of Lokelma and iv insulin (also received iv calcium gluconate). cont. iv fluid hydration as he appears to be prerenal azotemia in setting of CKD. Will ask assistant professor of education to meet with him to discuss low potassium diet (2) Acute on chronic kidney failure: Status: Acute Assessment and plan: iv fluid hydration, avoid NSAID's and any other renal toxic medications. avoid use of JAYJAY-I or ARB meds. Qualifiers: Acute renal failure type: unspecified Chronic kidney disease stage: stage 3 (moderate) Chronic kidney disease stage 3 subtype: unspecified whether 3a or 3b Qualified Code(s): N17.9 - Acute kidney failure, unspecified; N18.30 - Chronic kidney disease, stage 3 unspecified (3) Weakness: Status: Acute Assessment and plan: complaints of bilateral leg weakness and muscle fasiculations is consistent w/ hyperkalemia. Will ask P.T. to evaluate and treat him. (4) Essential hypertension: Status: Acute Assessment and plan: cont. atenolol (5) Peripheral vascular disease: Status: Acute Assessment and plan: continue ASA and Pletal (6) Bipolar disorder: Status: Chronic Assessment and plan: cont. his Seroquel and mirtazapine. History of Present Illness History of Present Illness Chief Complaint: weakness Narrative: 65 yr old black male w/ PMH CKD, HTN, PAD (s/p r. external & internal iliac stents), bipolar disorder, meningioma (s/p craniotomy and meningioma resection), Crohn's disease w/ partial ileal colectomy who presents to the ED @ [facility] w/ 4 days of generalized weakness, achiness and bilateral leg weakness. He also is a smoker and has had some increased dyspnea and cough. He has had no fevers or rigors. He has had a cough that is productive of a clear to white mucous. He has had no chest pain. The leg weakness he describes as the muslces go into spasm and he has no strength and his legs just give out. There is no focal paresis and he denies weakness in his arms and no other neurologic symptoms other than his legs feeling tingly and weak. No headache or visual disturbances. Workup in the ER included CBC, CMP [employer] HEAD swab for SARS-CoV-2 (negative), CXR and EKG. Labs were remarkable for potassium of 8.4 (prior baseline of 4.2 on 07/27/20), BUN 49, creatinine 2.2 (baseline from 07/27/20 were 18 and 1.66 respectively). LFT's and troponin were normal. EKG demonstrated NSR w/ peaked T waves. CXR showed no acute findings but stable small nudular density in left lung base (unchanged from 2017). Treatment in the ER consisted of iv calcium gluconate, insulin and dextrose (glucose was only 70) and iv fluids and Lokelma. Patient is admitted for treatment and workup of his hyperkalemia. Patient is not on any JAYJAY-I, ARB, potassium sparing diuretics nor any potassium supplements. He will be admitted to telemetry bed for further Lokelma and monitoring of his potassium levels. His repeat potassium level after initial treatment in the ER is now 6.7. Review of Systems Constitutional Constitutional: Reports weakness Cardiovascular Cardiovascular: Reports system reviewed and no additional complaints, except as documented and Reports dyspnea on exertion Respiratory Respiratory: Reports cough and Reports dyspnea on exertion Gastrointestinal Gastrointestinal: Reports system reviewed and no additional complaints, except as documented Genitourinary Genitourinary: Reports system reviewed and no additional complaints, except as documented Musculoskeletal Musculoskeletal: Reports muscle cramps, Reports muscle weakness and Reports tingling Integumentary/Breasts Skin/Breast: Reports system reviewed and no additional complaints, except as documented Neurologic Neurologic: Reports tingling and Reports weakness Endocrine Endocrine: Reports system reviewed and no additional complaints, except as documented Hematologic/Lymphatic Hematologic/Lymphatic: Reports system reviewed and no additional complaints, except as documented Allergic/Immunologic Allergic/Immunologic: Reports system reviewed and no additional complaints, except as documented [facility] Medical History Acute kidney injury (07/31/16) Alcohol abuse Alcoholic peripheral neuropathy Bipolar disorder Brain mass meningioma Chest pain, non-cardiac (08/10/16) negative enzymes, normal dobutamine stress echo 08/2016 Cardiac catheterization 08/30/2016: Non-obstructive CAD Crohn disease Essential hypertension Hx of tonic-clonic seizures Ileostomy present PVD (peripheral vascular disease) Tobacco abuse Tubular adenoma of colon Surgical History Angioplasty (09/27/12) Right external iliac and common iliac arteries Colonoscopy - IV Sedation (04/29/15) 3mm polyp in transverse colon coronary angiography (08/30/16) L heart catheterization [facility] [place] Ileoscopy (07/13/17) 06/16/[address] Duran Haskins, recommendation to repeat in 1 year. Report scanned PARTIAL ILEAL COLECTOMY AND DLI (08/10/16) Stent placement (09/27/12) RIght external iliac and common iliac arteries Family History Mother Essential hypertension Diabetes Heart disease Stroke Social History Smoking/Tobacco Use Status: Current every day Tobacco Type: cigarettes Tobacco: How many years used: 55 Smoking risk assessment performed?: Yes Alcohol Intake: former Drug use: Occasionally Substance use type: marijuana Details: only 2 beers since mid july 2020 Household members: none Housing: apartment Number of Children: 2 Communication Needs: None Pets and animals: Yes Pets and animals: cat(s) What type of physical activity do you participate in: walking Seatbelt use: always Drive intox or ride w/intox canal driver: No Water heater temp set <120 deg: Yes Working smoke detector in home: Yes Fire extinguisher in home: Yes Carbon monox detector in home: Yes Do you feel safe at home: Yes Do you feel safe in your relationship?: Yes Meds Allergies and Home Medications Allergies Allergy/AdvReac Type Severity Reaction Status Date / Time infliximab [From Remicade] Allergy Unknown rash, Verified 10/30/20 11:26 flushing lamotrigine Allergy Unknown Rash Verified 10/30/20 11:26 hydromorphone HCl AdvReac Intermediate itching Verified 10/30/20 11:26 [From Dilaudid] Home Medications Medication Instructions Recorded Confirmed Type mirtazapine [Remeron SolTab] 45 mg PO HS tab-cap 09/12/12 10/30/20 History aspirin 81 mg PO DAILY tab 10/17/12 10/30/20 History acetaminophen 650 mg PO Q4H PRN #30 tab-cap 08/23/16 10/30/20 History [place] Original 1 ea PO PRN 01/19/17 07/27/20 History loperamide 4 mg PO QID PRN #100 tab-cap 02/08/17 10/30/20 History atenolol 100 mg tablet 100 mg PO DAILY #90 tab-cap 01/08/20 10/30/20 Rx atorvastatin 80 mg tablet 80 mg PO DAILY #90 tab 01/08/20 10/30/20 Rx cilostazol 50 mg tablet 50 mg PO BID #180 tab-cap 01/08/20 10/30/20 Rx gabapentin 600 mg tablet 600 mg PO TID #270 tab 01/08/20 10/30/20 Rx pantoprazole 40 mg tablet,delayed 40 mg PO DAILY #90 tab-cap 01/08/20 10/30/20 Rx release albuterol sulfate 90 mcg/actuation 1 - 2 puff INHALATION Q4H PRN PRN 04/15/20 10/30/20 Rx aerosol inhaler #1 inhaler loratadine 10 mg tablet 10 mg PO DAILY #90 tab-cap 04/15/20 10/30/20 Rx quetiapine 200 mg tablet 400 mg PO BID tab 04/15/20 10/30/20 History coloplast elastic barrier strips #20 ea 06/24/20 07/27/20 Rx coloplast sensura convex pouch #20 ea 06/24/20 07/27/20 Rx divalproex 125 mg capsule,delayed 500 mg PO BID cap 08/04/20 History release sprinkle alprazolam 0.5 mg tablet 0.5 mg PO .COMPLEX PRN #3 tab-cap 09/16/20 09/16/20 Rx celecoxib 200 mg PO BID 10/30/20 10/30/20 History divalproex [Depakote] 1,000 mg PO BID 10/30/20 10/30/20 History sodium zirconium cyclosilicate 10 g PO HS #1 ea 10/31/20 Rx [Lokelma] Exam Narrative Exam Narrative: Late middle age black male sitting up in bed in ICU just having finished his sandwich. He is alert and oriented x 3, no acute distress HEENT: unremarkable Neck: supple, no JVD, normal carotid pulses, no adenopathy nor thyromegaly Lungs w/ diffuse end expiratory wheezes; no ralles Heart: RRR, w/out murmur, rub or gallop Abdomen: soft, nontender, no organomegaly Extremities: lower extremities w/ edema or rashes, clubbing of fingers noted Neuro: a&ox3, no focal CN deficits, normal ROM and strength in both upper extremities including intrinsics of his hands, and forearms and shoulders; lower extremities normal dorsiflexion and plantar flexion of his feet and normal extension and flexion at the knees and hips. Sensory grossly intact to light touch. Results Imaging Chest x-ray: report reviewed EKG: image reviewed Labs Result diagrams: 10/30/20 12:40 10/31/20 14:05 Labs: Laboratory Results - last 24 hr 10/30/20 10/30/20 10/30/20 12:20 12:40 12:40 WBC 7.37 RBC 4.78 Hgb 13.7 Hct 45.2 MCV 94.6 MCH 28.7 MCHC 30.3 L RDW 13.3 Plt Count 301 MPV 12.4 H Immature Gran % 0.4 Neutrophils % 49.2 Lymphocytes % 37.9 Monocytes % 10.0 Eosinophils % 2.0 Basophils % 0.5 Nucleated RBC % 0 Absolute Neutrophils 3.62 Absolute Lymphocytes 2.79 Absolute Monocytes 0.74 Absolute Eosinophils 0.15 Absolute Basophils 0.04 Sodium 133 L Potassium 8.4 H* Chloride 107 Carbon Dioxide 18.9 L Anion Gap 7.1 BUN 49 H Creatinine 2.2 H Estimated GFR/1.73 m2 30.10 Glucose 70 L Calcium 8.9 Magnesium Total Bilirubin 0.3 AST 27 ALT 28 Alkaline Phosphatase 105 Troponin I Total Protein 8.4 H Albumin 3.9 Urine Color Yellow Urine Clarity Clear Urine pH 5.5 Ur Specific [place] >= 1.030 H Urine Protein Negative Urine Ketones Negative Urine Blood Negative Urine Nitrite Negative Urine Bilirubin Negative Urine Urobilinogen 0.2 Ur Leukocyte Esterase Negative Urine Glucose Negative Valproic Acid COVID-19 Source SARS-CoV-2 (PCR) 10/30/20 10/30/20 10/30/20 12:40 12:40 12:40 WBC RBC Hgb Hct MCV MCH MCHC RDW Plt Count MPV Immature Gran % Neutrophils % Lymphocytes % Monocytes % Eosinophils % Basophils % Nucleated RBC % Absolute Neutrophils Absolute Lymphocytes Absolute Monocytes Absolute Eosinophils Absolute Basophils Sodium Potassium Chloride Carbon Dioxide Anion Gap BUN Creatinine Estimated GFR/1.73 m2 Glucose Calcium Magnesium 2.2 Total Bilirubin AST ALT Alkaline Phosphatase Troponin I < 0.05 Total Protein Albumin Urine Color Urine Clarity Urine pH Ur Specific [place] Urine Protein Urine Ketones Urine Blood Urine Nitrite Urine Bilirubin Urine Urobilinogen Ur Leukocyte Esterase Urine Glucose Valproic Acid 69.9 COVID-19 Source SARS-CoV-2 (PCR) 10/30/20 10/30/20 13:40 15:30 WBC RBC Hgb Hct MCV MCH MCHC RDW Plt Count MPV Immature Gran % Neutrophils % Lymphocytes % Monocytes % Eosinophils % Basophils % Nucleated RBC % Absolute Neutrophils Absolute Lymphocytes Absolute Monocytes Absolute Eosinophils Absolute Basophils Sodium Potassium 7.0 H* Chloride Carbon Dioxide Anion Gap BUN Creatinine Estimated GFR/1.73 m2 Glucose Calcium Magnesium Total Bilirubin AST ALT Alkaline Phosphatase Troponin I Total Protein Albumin Urine Color Urine Clarity Urine pH Ur Specific [place] Urine Protein Urine Ketones Urine Blood Urine Nitrite Urine Bilirubin Urine Urobilinogen Ur Leukocyte Esterase Urine Glucose Valproic Acid COVID-19 Source Nasal/nares SARS-CoV-2 (PCR) Negative Last Vital Signs Temp 36.5 C 10/30/20 11:15 Pulse 90 10/30/20 16:31 Resp 19 10/30/20 16:31 BP 114/59 L 10/30/20 16:31 Pulse Ox 92 10/30/20 16:31 COVID-19 Screening Have you, or household traveled for leisure in last 14 days?: No Had IN PERSON contact w/suspected or confirmed C-19 person: Yes
[2020-10-30] MEDS: Normal Saline 1,000 ML 150 ML IV ×2 (17:10→21:58)
[2020-10-30] MEDS: Lidocaine 2% Jelly 6 ML SYR (17:20)
[2020-10-30 18:01] LABS: Potassium 6.7 mmol/L (3.5-5.1)
[2020-10-30] MEDS: Cilostazol 100 MG TAB 50 MG PO (20:31)
[2020-10-30] MEDS: Gabapentin 600 MG TAB PO (20:31)
[2020-10-30] MEDS: Acetaminophen 325 MG TAB PO (20:33)
[2020-10-30] MEDS: Nicotine 21 MG/24 HR PATCH TD (21:51)
[2020-10-30] MEDS: hydrOXYzine HCL 25 MG TAB PO (21:52)
[2020-10-30] MEDS: Mirtazapine 15 MG TAB 30 MG PO (21:52)
[2020-10-30] MEDS: QUEtiapine 100 MG TAB (21:52)
[2020-10-30] MEDS: ALPRAZolam 0.5 MG TAB PO (21:52)
[2020-10-30] MEDS: Divalproex 125 MG SPRINKLE 1000 MG PO (22:02)
[2020-10-31 00:40] VITALS: BP 91/50; PULSE 49; RESP 20; TEMP 36.4; O2SAT 96
[2020-10-31] MEDS: Normal Saline 1,000 ML 150 ML IV ×2 (04:33→11:39)
[2020-10-31 07:12] VITALS: PULSE 73
[2020-10-31] MEDS: Sodium Zirconium Cyclosilicate 10 GM PKT PO ×2 (07:25→14:58)
[2020-10-31 08:04] VITALS: BP 106/56; PULSE 79; RESP 19; TEMP 37; O2SAT 99
[2020-10-31 08:25] LABS: Anion Gap 8.1 mmol/L (3-11); BUN 34 mg/dL (7-18); CO2 19.9 mmol/L (21.0-32.0); CREATININE 1.7 mg/dL (0.70-1.30); Calcium 8.5 mg/dL (8.5-10.1); Chloride 111 mmol/L (98-107); Estimated GFR 40.53 (mL/min/1.73m2); Glucose 63 mg/dL (74-106); Potassium 5.2 mmol/L (3.5-5.1); Sodium 139 mmol/L (136-145)
[2020-10-31] MEDS: Atorvastatin 40 MG TAB 80 MG PO (09:17)
[2020-10-31] MEDS: Cilostazol 100 MG TAB 50 MG PO (09:17)
[2020-10-31] MEDS: Divalproex 125 MG SPRINKLE 1000 MG PO (09:17)
[2020-10-31] MEDS: Atenolol 50 MG TAB 100 MG PO (09:18)
[2020-10-31] MEDS: Pantoprazole 40 MG TABCR PO (09:18)
[2020-10-31] MEDS: Gabapentin 600 MG TAB PO (09:19)
--- NOTE | 2020-10-31 09:31 | PT.INIE ---
Date of service: 10/31/20 Time of Service: 08:50 PT Notes Visit Reasons: HYPERKALEMIA Inpatient Physical Therapy Evaluation Date: 10/30/20 Referring Doctor: Dr. Maza PT Orders: PT CONSULT: safety consult for D/C Precautions: fall, standard Patient Profile/Admitting Diagnosis: Patient admitted from ER after presenting with LE weakness. Diagnosed with hyperkalemia and admitted for treatment. PMHX: Acute kidney injury (07/31/16) Alcohol abuse Alcoholic peripheral neuropathy Bipolar disorder Brain mass meningioma Chest pain, non-cardiac (08/10/16) negative enzymes, normal dobutamine stress echo 08/2016 Cardiac catheterization 08/30/2016: Non-obstructive CAD Crohn disease Essential hypertension Hx of tonic-clonic seizures Ileostomy present PVD (peripheral vascular disease) Tobacco abuse Tubular adenoma of colon Surgical History Angioplasty (09/27/12) Right external iliac and common iliac arteries Colonoscopy - IV Sedation (04/29/15) 3mm polyp in transverse colon coronary angiography (08/30/16) L heart catheterization [facility] [place]leoscopy (07/13/17) 06/16/[address] Duran Haskins, recommendation to repeat in 1 year. Report scanned PARTIAL ILEAL COLECTOMY AND DLI (08/10/16) Stent placement (09/27/12) RIght external iliac and common iliac arteries Social History/Home Situation: Patient lives in a second-floor apartment with a roommate. He does not drive. He ambulates without an assistive device. Admits to difficulty managing stairs (due to leg pain), stating he sometimes has to crawl up the stairs to his apartment. He is currently working with his case working to secure a first floor apartment. Equipment Owned/DME: None Subjective: Ulises reports about 4 days of increasing LE weakness, stating that by yesterday he was unable to leave his apartment. His roommate convinced him to go to the ER. He has chronic LE pain due to PAD, but is generally independent in his apartment, and able to walk short community distances unassisted. This is limited by leg pain. He states that today he's feeling a bit better. He is looking forward to being able to return home as soon as he can. Objective: General Observation: Resting in bed with IV in RUE, telemetry in place. Patient has a colostomy bag. Mental Status: A&Ox3 Pain: 1/10 leg pain at rest; 3/10 with short distance ambulation Vital Signs: monitored on telemetry throughout ROM: Right Upper Extremity: WFL Left Upper Extremity: WFL Right Lower Extremity: WFL Left Lower Extremity: WFL Strength: Right Upper Extremity: Shoulder flexion 3/5 or greater. Biceps 4+/5. Triceps 4+/5. Aircraft Communicator strong and equal. Left Upper Extremity: Shoulder flexion 3/5 or greater. Biceps 4+/5. Triceps 4+/5. Aircraft Communicator strong and equal. Right Lower Extremity: Hip flexion 4+/5. Quads 4/5. Hamstrings 4/5. Ankle DF 4/5. Left Lower Extremity: Hip flexion 4+/5. Quads 4/5. Hamstrings 4/5. Ankle DF 4/5. Sensation: intact through plantar aspect of both feet Bed Mobility/Transfers: supine-sit: independent sit-supine: independent sit-stand: supervision stand-sit: supervision bed-chair: supervision with FWW, assist for IV pole management Gait: Patient ambulates 25' with FWW, CGA, and assistance for IV pole management. He demonstrates minimal reliance of FWW, although reports increasing pain in LEs with ambulation. Patient demonstrates NICHOLS, and requires seated rest period for recovery of breathing. Balance: Static Sitting: normal Dynamic Sitting: normal Static Standing: fair Dynamic Standing: fair Special Tests: Mobility Limitations Standardized Measure [facility] AM-PAC 6 clicks Basic Mobility Inpatient Short Form: Raw Score: 20 CMS Score: 36% deficit Informed Consent/Education: Patient instructed in purpose of PT consult and plan of care. Assessment: Patient is a 65 year old male referred to physical therapy services for safety consultation prior to discharge. Patient presents with clinical signs and symptoms consistent with LE weakness due to acute medical issues (hyperkalemia), in the presence of multiple chronic comorbidities and baseline mobility restrictions. He currently demonstrates the following impairment level findings: 1. LE weakness 2. Decreased activity tolerance 3. LE pain with activity Impairments are contributing to the following functional limitations: 1. unable to independently ambulate household distances 2. baseline limitations in ability to manage stairs 3. decreased activity tolerance Patient is assessed as Moderate [id number] complexity based on the following: History: 65 year old male with acute LE weakness due to hyperkalemia, in the presence of multiple medical comorbidities. Patient has chronic PAD, limiting his ability to ambulate and manage stairs. He additionally has a recent seizure history, with surgical removal of brain mass in July of this year. Examination: functional limitations as noted above Presentation: evolving Decision Making: moderate complexity Goals: Goals X1 week 1. Supine-Sit : independent 2. Sit-Supine : independent 3. Sit-Stand : independent 4. Stand-Sit : independent 5. Bed-Chair: supervision with least restrictive device 6. Chair-Bed :supervision with least restrictive device 7. Gait: supervision with least restrictive device x 50' 8. Stairs : supervision up and down 6 steps with bilat rails Plan of Care/Treatment Plan: 1-2x/day, 7 days/week x 1 week. Plan of care has been reviewed with the AUTO WASHER providing the service under Physical Therapy direction. Initiate Physical Therapy intervention for strengthening, bed mobility, transfers, gait, stairs, balance training, use of assistive device. DISCHARGE RECOMMENDATIONS: home, without anticipated equipment needs TREATMENT CODE/TIME: 8:50 - 9:15 ([id number]) Radha Martinez, PT, DPT [facility]
--- NOTE | 2020-10-31 13:35 | CHAPLAIN ---
Ulises said he doesn't like hospitals, but he's willing to stay here another night. [place] [address] In July he went to [facility] and had a tumor, the size of a fist removed from his head. Ulises said he lost track of four days while he was there. Ulises has been in touch with friends and his roommate, and expects to be discharged tomorrow.
--- NOTE | 2020-10-31 13:58 | W.NUTCONSULT ---
Date of service: 10/31/20 Time of Service: 13:59 Nutritional Consult ASSESSMENT: 65 year old male admitted with acute chronic kidney failure PMH: Crohns Dx s/p ostomy, meningioma s/p craniotomy. BMI wnl, however, 14 lbs weight loss noted. Ulises reports that he has been weaker than usual and attributes weight loss to loss of muscle. NUTRITIONAL DIAGNOSIS: hyperkalemia secondary to decreased kidney function and excess potassium intake INTERVENTION: Educated Ulises on dietary strategies to reduce impact on kidney including limiting potassium intake, sodium intake, fluid overloading while preserving lean body mass. Ulises reports prior to admission was drinking 2-3 bottles V8 and cranberry juice, both of which contain high amounts of potassium, he also ate potatoes most days and ate high salt items. Provided meal and beverage alternatives and reviewed foods that are encouraged to support kidney function. Ulises wants to avoid dialysis and is willing to stop the high salt, high potassium foods. MONITORING AND EVALUATION: weight, po intake, labs Time Spent in Nutritional Counseling and Treatment: 20 min
[2020-10-31 14:20] LABS: Potassium 5.1 mmol/L (3.5-5.1)
--- NOTE | 2020-10-31 15:01 | PT.INTREAT ---
Date of service: 10/31/20 Time of Service: 14:30 PT Notes Visit Reasons: HYPERKALEMIA Inpatient Physical Therapy Treatment Note [facility] Date: 10/31/20 PRECAUTIONS:standard SUBJECTIVE: Ulises states that he's feeling pretty good. His legs are painfree at rest. OBJECTIVE: BED MOBILITY/TRANSFERS Rolling L/R: independent Supine-sit: independent Sit-supine: independent Sit-stand: supervision Stand-sit: supervision Bed-Chair: supervision with FWW Chair-bed: supervision with FWW GAIT Assistive Device: FWW Weight bearing: full Assist: supervision Distance: 25' THEREX: Patient was instructed in seated and standing UE/LE strengthening activities. He fatigues quickly, and requires active rest periods with a variety of exercises to promote improved activity tolerance. ASSESSMENT: Improved independence with ambulation. May be appropriate for transition away from FWW tomorrow. PLAN: Continue strengthening and progressive ambulation to improve safety and activity tolerance. TREATMENT CODE/TIME: 2:30-3:00 ([id number]) Radha Martinez, PT, DPT [facility]
[2020-10-31 15:17] VITALS: BP 102/66; PULSE 69; RESP 12; TEMP 35.6; O2SAT 96
--- NOTE | 2020-10-31 17:06 | DSE_ITS ---
Date of service: 10/31/20 Time of Service: 17:06 DS: Diagnosis Discharge Diagnosis (1) Hyperkalemia: Status: Resolved Asessment and Plan: Potassium down to 5.1 from high of 8.2 after treatment w/ Lokelma x 4 doses (one given in the ER and 3 more doses given since admission) (2) Acute on chronic kidney failure: Status: Resolved Asessment and Plan: creatinine down to 1.7 which appears close to his baseline of 1.4 to 1.6. He was treated w/ iv fluids. (3) Weakness: Status: Resolved Asessment and Plan: resolved w/ reduction in potassium levels. Patient ambulating independently (4) Essential hypertension: Status: Chronic Asessment and Plan: cont. atenolol (5) Peripheral vascular disease: Status: Chronic Asessment and Plan: no changes to his antiplatelet regimen (6) Bipolar disorder: Status: Chronic Asessment and Plan: no changes to his home meds Discharge Plan Disposition Patient Disposition: HOME Condition: Serious Discharge Details Reason For Visit: HYPERKALEMIA Admit Date/Time: 10/30/20 17:01 Admit Provider: Shashi Maza Attending Provider: Shashi Maza Primary Care Provider: Gertrudis Uribe Hospital Course Hospital Course: 65 yr old black male w/ PMH CKD, HTN, PAD (s/p r. external & internal iliac stents), bipolar disorder, meningioma (s/p craniotomy and meningioma resection), Crohn's disease w/ partial ileal colectomy who presents to the ED @ [facility] w/ 4 days of generalized weakness, achiness and bilateral leg weakness. He also is a smoker and has had some increased dyspnea and cough. He has had no fevers or rigors. He has had a cough that is productive of a clear to white mucous. He has had no chest pain. The leg weakness he describes as the muslces go into spasm and he has no strength and his legs just give out. There is no focal paresis and he denies weakness in his arms and no other neurologic symptoms other than his legs feeling tingly and weak. No headache or visual disturbances. Workup in the ER included CBC, CMP BOND MANAGER swab for SARS-CoV-2 (negative), CXR and EKG. Labs were remarkable for potassium of 8.4 (prior baseline of 4.2 on 07/27/20), BUN 49, creatinine 2.2 (baseline from 07/27/20 were 18 and 1.66 respectively). LFT's and troponin were normal. EKG demonstrated NSR w/ peaked T waves. CXR showed no acute findings but stable small nudular density in left lung base (unchanged from 2017). Treatment in the ER consisted of iv calcium gluconate, insulin and dextrose (glucose was only 70) and iv fluids and Lokelma. Patient is admitted for treatment and workup of his hyperkalemia. Patient is not on any JAYJAY-I, ARB, potassium sparing diuretics nor any potassium supplements. He will be admitted to telemetry bed for further Lokelma and monitoring of his potassium levels. His repeat potassium level after initial treatment in the ER is now 6.7. Patient continued to receive Lokelma 10 g orally x3 more doses with serial monitoring of his potassium level. At the time of discharge his potassium is down to 5.1. Pending labs include serum aldosterone and plasma renin review level. Track Layer Head met w/ the patient on the day of discharge and discussed his dietary indiscretions of high potassium foods/drinks including his use of an energy drink and V8 both which are very high in potassium. He was given a list of foods to avoid that are high in potassium Home Meds and New Rx's Prescriptions: New Lokelma 10 gram powder in packet 10 g PO HS Qty: 1 RF: 0 No Action divalproex 125 mg capsule, delayed rel sprinkle 500 mg PO BID RF: 0 atenolol 100 mg tablet 100 mg PO DAILY Qty: 90 RF: 3 atorvastatin 80 mg tablet 80 mg PO DAILY Qty: 90 RF: 3 cilostazol 50 mg tablet 50 mg PO BID Qty: 180 RF: 3 Hold Instructions: restart 08/08/20 per [facility] d/c gabapentin 600 mg tablet 600 mg PO TID Qty: 270 RF: 3 pantoprazole 40 mg tablet,delayed release (DR/EC) 40 mg PO DAILY Qty: 90 RF: 3 loratadine 10 mg tablet 10 mg PO DAILY Qty: 90 RF: 3 albuterol sulfate [Proventil HFA] 90 mcg/actuation HFA aerosol inhaler 1 - 2 puff Inhalation Q4H PRN PRN (Reason: shortness of breath or wheezing) Qty: 1 RF: 2 alprazolam 0.5 mg tablet 0.5 mg PO .COMPLEX PRN (Reason: MRI Claustrophobia) Qty: 3 RF: 0 mirtazapine [Remeron SolTab] 45 MG tablet,disintegrating 45 mg PO HS RF: 0 aspirin 81 MG tablet,delayed release (DR/EC) 81 mg PO DAILY RF: 0 Hold Instructions: restart 08/08/20 per [facility] d/c acetaminophen 325 MG tablet 650 mg PO Q4H PRN Qty: 30 RF: 3 Yaritza-Wharton Original 1 EACH tablet, effervescent 1 ea PO PRN RF: 0 loperamide 2 MG capsule 4 mg PO QID PRNQty: 100 RF: 5 (DME) coloplast elastic barrier strips See Rx Instructions .Route .MEDSUPPLY Qty: 20 RF: 12 (DME) coloplast sensura convex pouch See Rx Instructions .Route .MEDSUPPLY Qty: 20 RF: 12 quetiapine [Seroquel] 200 mg tablet 400 mg PO BID RF: 0 celecoxib 200 mg Capsule 200 mg PO BID RF: 0 divalproex [Depakote] 500 mg Tablet,Delayed Release (Dr/Ec) 1,000 mg PO BID RF: 0 Discharge Instructions Stand Alone Forms: Nursing Discharge Form Activity:: Activity as Tolerated Equipment/Supplies:: No Equipment Needed Diet:: low potassium diet Discharge Orders Discharge Orders: Discharge Order (Routine); Ordered 10/31/20 Ordered By: Shashi Maza Other Ambulatory Orders: Basic Metabolic Panel (Routine) Timeframe: 1 Day Facility: [facility] - Location: Laboratory Ordered By: Shashi Maza DS: Summary Time Spent with Patient providing and/or coordinating discharge services: Less than 30 minutes Specific discharge activities: 30 Status at Discharge Functional status at discharge: independent ambulation Overall status at discharge: patient is back to baseline Mental Status: mental status grossly normal Speech and Movement: speech and movement normal Mood: congruent mood Affect: normal affect Exam Narrative Exam Narrative: Patient was evaluated found to have normal range of motion and strength in both upper and lower extremities. He was ambulated around the nursing floor with his nurse performing standby assistance. He had no gait instability and no loss of balance. He ambulated unassisted. Psych Mental Status: mental status grossly normal Speech and Movement: speech and movement normal Mood: congruent mood Affect: normal affect DS: Data Vitals/I&O Vitals and I&O: Vital Signs Temperature 35.6 C L 10/31/20 15:17 Temperature Source Tympanic 10/31/20 08:04 Pulse 69 10/31/20 15:17 Pulse Rhythm Regular 10/31/20 00:40 Pulse 77 10/30/20 23:40 Respiratory Rate 12 10/31/20 15:17 Respiratory Effort 10/31/20 00:40 Respiratory Depth Normal 10/31/20 00:40 Respiratory Pattern Normal 10/30/20 18:30 Blood Pressure 102/66 10/31/20 15:17 Blood Pressure Mean 58 10/30/20 22:51 Blood Pressure Position Supine 10/30/20 18:30 Pulse Oximetry 96 10/31/20 15:17 Oxygen Delivery Method Room Air 10/31/20 15:17 Oxygen Flow Rate 0 10/31/20 15:17 Pain Level 3 10/31/20 15:17 Intake & Output 10/30/20 10/31/20 10/31/20 23:59 11:59 23:59 Intake Total 800 / 800 2852.5 / 3092.5 240 / 3092.5 Output Total 400 / 400 1175 / 1800 625 / 1800 Balance 400 / 400 1677.5 / 1292.5 -385 / 1292.5 Weight 77 kg 76.7 kg Intake: IV 800 / 800 2462.5 / 2462.5 Oral 390 / 630 240 / 630 Output: Urine 400 / 400 350 / 350 Stool 825 / 1450 625 / 1450 Other: Urine Color Yellow Yellow Urine Appearance Clear Clear Urine Odor None Comment Pt's penis clenched around catheter during removal, pt cried from pain. No visible trauma or bleeding noticed. 3 SCANS OF 56, 256 AND 186 FOR AN AVG OF 166CC. PT HAD VOIDED 350CC AT 0440 Stool Characteristics Liquid Liquid Green Voiding Methods Urinal Data Completed and Pending Labs on day of discharge: Labs from last 24 hours 10/31/20 10/31/20 10/31/20 14:05 08:00 07:23 Sodium 139 Potassium 5.1 5.2 H D Chloride 111 H Carbon Dioxide 19.9 L Anion Gap 8.1 BUN 34 H D Creatinine 1.7 H Estimated GFR/1.73 m2 40.53 Glucose 63 L Calcium 8.5 Renin Activity Pending Aldosterone Pending SARS-CoV-2 (PCR) Nasopharyn COVID-19 PCR Ref Test Perform Site 10/30/20 10/30/20 17:46 11:50 Sodium Potassium 6.7 H* Chloride Carbon Dioxide Anion Gap BUN Creatinine Estimated GFR/1.73 m2 Glucose Calcium Renin Activity Aldosterone SARS-CoV-2 (PCR) Cancelled Nasopharyn COVID-19 PCR Cancelled Ref Test Perform Site Cancelled [facility] Medical History Acute kidney injury (07/31/16) Alcohol abuse Alcoholic peripheral neuropathy Bipolar disorder Brain mass meningioma Chest pain, non-cardiac (08/10/16) negative enzymes, normal dobutamine stress echo 08/2016 Cardiac catheterization 08/30/2016: Non-obstructive CAD Crohn disease Essential hypertension Hx of tonic-clonic seizures Ileostomy present PVD (peripheral vascular disease) Tobacco abuse Tubular adenoma of colon Surgical History Angioplasty (09/27/12) Right external iliac and common iliac arteries Colonoscopy - IV Sedation (04/29/15) 3mm polyp in transverse colon coronary angiography (08/30/16) L heart catheterization [facility] Ileoscopy (07/13/17) 06/16/[address] Duran Haskins, recommendation to repeat in 1 year. Report scanned PARTIAL ILEAL COLECTOMY AND DLI (08/10/16) Stent placement (09/27/12) RIght external iliac and common iliac arteries Family History Mother Essential hypertension Diabetes Heart disease Stroke Social History Smoking/Tobacco Use Status: Current every day Tobacco Type: cigarettes Tobacco: How many years used: 55 Smoking risk assessment performed?: Yes Alcohol Intake: former Drug use: Occasionally Substance use type: marijuana Details: only 2 beers since July 2020 Household members: none Housing: apartment Number of Children: 2 Communication Needs: None Pets and animals: Yes Pets and animals: cat(s) What type of physical activity do you participate in: walking Seatbelt use: always Drive intox or ride w/intox logging truck driver: No Water heater temp set <120 deg: Yes Working smoke detector in home: Yes Fire extinguisher in home: Yes Carbon monox detector in home: Yes Do you feel safe at home: Yes Do you feel safe in your relationship?: Yes
--- NOTE | 2020-10-31 17:17 | PDOC.CMIN ---
- If Service Date Differs Date of service: 10/31/20 Time of Service: 17:17 Care Management Initial Assess REASON FOR HOSPITALIZATION:: Hyperkalemia PAST MEDICAL HISTORY/PAST SURGICAL HISTORY:: Medical History. Acute kidney injury (07/31/16). Alcohol abuse. Alcoholic peripheral neuropathy. Bipolar disorder. Brain mass. meningioma. Chest pain, non-cardiac (08/10/16). negative enzymes, normal dobutamine stress echo 08/2016. Cardiac catheterization 08/30/2016: Non-obstructive CAD. Crohn disease. Essential hypertension. Hx of tonic-clonic seizures. Ileostomy present. PVD (peripheral vascular disease). Tobacco abuse. Tubular adenoma of colon. Surgical History. Angioplasty (09/27/12). Right external iliac and common iliac arteries. Colonoscopy - IV Sedation (04/29/15). 3mm polyp in transverse colon. coronary angiography (08/30/16). L heart catheterization. [facility]. Ileoscopy (07/13/17). 06/16/[address] Duran Haskins, recommendation to repeat in 1 year. Report scanned. PARTIAL ILEAL COLECTOMY AND DLI (08/10/16). Stent placement (09/27/12). RIght external iliac and common iliac arteries PREVIOUS FUNCTIONAL STATUS/SOCIAL/FAMILY SUPPORTS:: Ulises lives alone in [place] and reports that is the way he is most comfortable, although he has a friend staying with him currently, which he is happy about. 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 He also sees Aby Anne for med management and picks up his prescriptions at [facility] when there for appointments. He manages all of his own ADLs though he reports it is physically exhausting sometimes, especially when he has to walk for items at [employer] in [place], and then walk up the flight of stairs to his apartment; he falls to the couch and rests before taking care of his items. He reports this is due to having weak legs and back due to heriated disc, a stint in his right leg and arthritis that was found on a scan three weeks ago. He utlizes [facility] shuttle for transport as his residence is on the route. He utllizes [facility] private drivers for his medical appointments, and private paid taxi for all other transport. He reports to get his groceries he sometimes pays the $6 to go to the grocery store as it is too difficult to have ten bags of groceries on the shuttle. He shares he is on SSDI with a determination of disability due to Bipolar disorder though he also shares his disorder is well managed with medications. He reports his medical needs are managed by Dr. Gertrudis Uribe, who he has a good rapport with. 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 He describes himself as getting bored easy and having wanderlust. He enjoys putting together model cars and stays in when it gets too cold. CURRENT FUNCTIONAL STATUS:: Ulises was sitting in his chair when CM met with him. He was pleasant and engaged in conversation. He reported that he has had two major medical events in the past, and this one is relatively minor. He is hoping to return home today, but will stay if the MD recommends it. Per MD, he may be able to return home this afternoon. CM will continue to follow. ADVANCE DIRECTIVES:: On file. Ana Maria Kaur listed as agent. Gary Hernandez listed as alternate agent. Has patient been provided with info about the portal/API?: Yes Did the patient sign up for the portal?: No CODE STATUS:: Full Code INSURANCE COVERAGE / FINANCIAL ISSUES:: [facility]/ [facility] CURRENT HOME/COMMUNITY SERVICES/EQUIPMENT:: Ulises is connected to [facility] for his mental health needs. He uses [facility], and has a section 8 voucher for housing. PRIMARY CARE PHYSICIAN:: Gertrudis Uribe POTENTIAL DISCHARGE NEEDS:: Follow up appointments. PATIENT/FAMILY EDUCATION NEEDS:: Review discharge instructions regarding activity levels and medications, discussion of self care needs and goals of care. ANTICIPATED BARRIERS TO DISCHARGE:: None identified. TRANSPORTATION:: Via private vehicle [facility] PLAN:: Ulises will return home when medically cleared, likely with no services. He will transport home via [facility] private vehicle. He will follow up with his PCP and discharge plan of care. CM will continue to follow.
[2020-10-31 18:41] VITALS: PULSE 84
--- NOTE | 2020-11-03 09:28 | INDS_ITS ---
Date of service: 11/03/20 Time of Service: 09:29 PT Notes Visit Reasons: HYPERKALEMIA Physical Therapy Inpatient Discharge Summary Date: 11/03/20 Dates of service: 10/30/2020 only This is a clinical summary of care provided on the duration of dates listed above. No charge was made in the completion of this documentation. Referring Doctor: Dr. Maza PT Orders: PT CONSULT: safety consult for D/C Precautions: fall, standard Patient Profile/Admitting Diagnosis: Patient admitted from ER after presenting with LE weakness. Diagnosed with hyperkalemia and admitted for treatment. PMHX: Acute kidney injury (07/31/16) Alcohol abuse Alcoholic peripheral neuropathy Bipolar disorder Brain mass meningioma Chest pain, non-cardiac (08/10/16) negative enzymes, normal dobutamine stress echo 08/2016 Cardiac catheterization 08/30/2016: Non-obstructive CAD Crohn disease Essential hypertension Hx of tonic-clonic seizures Ileostomy present PVD (peripheral vascular disease) Tobacco abuse Tubular adenoma of colon Surgical History Angioplasty (09/27/12) Right external iliac and common iliac arteries Colonoscopy - IV Sedation (04/29/15) 3mm polyp in transverse colon coronary angiography (08/30/16) L heart catheterization [facility] Ileoscopy (07/13/17) 06/16/[address] Duran Haskins, recommendation to repeat in 1 year. Report scanned PARTIAL ILEAL COLECTOMY AND DLI (08/10/16) Stent placement (09/27/12) RIght external iliac and common iliac arteries Social History/Home Situation: Patient lives in a second-floor apartment with a roommate. He does not drive. He ambulates without an assistive device. Admits to difficulty managing stairs (due to leg pain), stating he sometimes has to crawl up the stairs to his apartment. He is currently working with his case working to secure a first floor apartment. Equipment Owned/DME: None Subjective: NT. See most recent MANAGER OPERATIONS RESEARCH notes. Objective: General Observation: NT. See most recent MANAGER OPERATIONS RESEARCH notes. Mental Status: NT. See most recent MANAGER OPERATIONS RESEARCH notes. Pain: NT. See most recent MANAGER OPERATIONS RESEARCH notes. Vital Signs: NT. See most recent MANAGER OPERATIONS RESEARCH notes. ROM: Right Upper Extremity: WFL Left Upper Extremity: WFL Right Lower Extremity: WFL Left Lower Extremity: WFL Strength: Right Upper Extremity: Shoulder flexion 3/5 or greater. Biceps 4+/5. Triceps 4+/5. Belt Dresser strong and equal. Left Upper Extremity: Shoulder flexion 3/5 or greater. Biceps 4+/5. Triceps 4+/5. Belt Dresser strong and equal. Right Lower Extremity: Hip flexion 4+/5. Quads 4/5. Hamstrings 4/5. Ankle DF 4/5. Left Lower Extremity: Hip flexion 4+/5. Quads 4/5. Hamstrings 4/5. Ankle DF 4/5. Sensation: intact through plantar aspect of both feet Bed Mobility/Transfers: supine-sit: independent sit-supine: independent sit-stand: supervision stand-sit: supervision bed-chair: supervision with FWW, assist for IV pole management Gait: Patient ambulates 25' with FWW, CGA, and assistance for IV pole management. He demonstrates minimal reliance of FWW, although reports increasing pain in LEs wi th ambulation. Patient demonstrates NICHOLS, and requires seated rest period for recovery of breathing. Balance: Static Sitting: normal Dynamic Sitting: normal Static Standing: fair Dynamic Standing: fair Assessment: Patient is a 65 year old male referred to physical therapy services for safety consultation prior to discharge. Patient continues to present with clinical signs and symptoms consistent with LE weakness due to acute medical issues (hyperkalemia), in the presence of multiple chronic comorbidities and baseline mobility restrictions. He currently demonstrates the following impairment level findings: 1. LE weakness 2. Decreased activity tolerance 3. LE pain with activity Impairments are continuing to contribute to the following functional limitations: 1. unable to independently ambulate household distances 2. baseline limitations in ability to manage stairs 3. decreased activity tolerance Goals: Goals X1 week 1. Supine-Sit : independent MET 2. Sit-Supine : independent MET 3. Sit-Stand : independent NOT MET 4. Stand-Sit : independent NOT MET 5. Bed-Chair: supervision with least restrictive device MET 6. Chair-Bed :supervision with least restrictive device MET 7. Gait: supervision with least restrictive device x 50' MET 8. Stairs : supervision up and down 6 steps with bilat rails NOT MET DISCHARGE RECOMMENDATIONS: home, without anticipated equipment needs TREATMENT CODE/TIME: OH Thank you for the opportunity to participate in the care of this patient. Tammie Mar PT, DPT, CLT [facility], [place]
[2020-11-04 12:10] LABS: Renin Activity, Plasma 4.4 ng/mL/h
== END 2020-10-31 19:45 | disposition home or self-care (01) ==
LOC: ER 17:57 → ICU 18:22 → MS 10-31 08:06
PROVIDERS: Physician Assistant; Admitting Provider Internal Medicine; Emergency Provider Student in an Organized Health Care Education/Training Program; PCP Internal Medicine; Visit Provider Internal Medicine
DX: E87.5 Hyperkalemia (principal); N17.9 Acute kidney failure, unspecified; N18.30 Chronic kidney disease, stage 3 unspecified; R53.1 Weakness; Z20.822 Contact with and (suspected) exposure to COVID-19; G62.1 Alcoholic polyneuropathy; F31.9 Bipolar disorder, unspecified; K50.90 Crohn's disease, unspecified, without complications; I12.9 Hypertensive chronic kidney disease with stage 1 through stage 4 chronic kidney disease, or unspecified chronic kidney disease; Z93.2 Ileostomy status; I73.9 Peripheral vascular disease, unspecified; F17.210 Nicotine dependence, cigarettes, uncomplicated; F10.11 Alcohol abuse, in remission
CPT/HCPCS: 36415; 36416; 51702; 80048; 80053; 82962; 87635; 93005; 94640; 96361; 96365; 96375; 97110; 97162; 99219; 99238; 99291; U0003; 71045; 80164; 81003; 82088; 83735; 84132; 84244; 84484; 85025; 93010; 99217; G0378; J0610; J7613

== ENCOUNTER 2020-11-11 02:18 | Outpatient (CLI) | payer MEDICARE, MEDICAID, SELFPAY ==
[2020-11-11 12:18] LABS: Anion Gap 9.7 mmol/L (3-11); BUN 20 mg/dL (7-18); CO2 25.3 mmol/L (21.0-32.0); CREATININE 1.6 mg/dL (0.70-1.30); Calcium 9.2 mg/dL (8.5-10.1); Chloride 108 mmol/L (98-107); Estimated GFR 43.46 (mL/min/1.73m2); Glucose 82 mg/dL (74-106); Sodium 143 mmol/L (136-145)
[2020-11-11 12:24] LABS: Calculated LDL 42 mg/dL (<100); Cholesterol 103 mg/dL (<200); HDL Cholesterol 43 mg/dL (40-60); Triglyceride 90 mg/dL (<150)
== END 2020-11-11 02:19 | disposition home or self-care (01) ==
LOC: LBO 02:18
PROVIDERS: PCP Internal Medicine; Visit Provider Internal Medicine
DX: E78.00 Pure hypercholesterolemia, unspecified (principal); N17.9 Acute kidney failure, unspecified; N18.9 Chronic kidney disease, unspecified; E87.5 Hyperkalemia
CPT/HCPCS: 80048; 80061

== ENCOUNTER 2020-11-24 02:10 | Outpatient (CLI) | payer MEDICARE, MEDICAID, SELFPAY ==
--- NOTE | 2020-11-24 | DI.MRI_ITS ---
Exam(s) MR BRAIN WO/W EXAM: MR BRAIN WO/W CLINICAL HISTORY: F/U OLFACTORY MENINGIOMA,S/P RESECTION,D32.9 TECHNIQUE: Multiplanar multisequence MRI of the brain was performed. Both noninfused and contrast i nfused sequences were performed. IV Contrast injected was 17 cc Dotarem. COMPARISON: MR MRI BRAIN WWO from 07/31/2020 MR MRI BRAIN WWO from 07/31/2020 FINDINGS: CEREBRAL PARENCHYMA: No evidence of intracranial hemorrhage. Surgical bed site in the floor of the frontal lobe region again noted. This area does not exhibit n ew enhancing mass. Some postsurgical edema is again noted. No new meningeal enhancement. No new adjacent paranasal full sinus findings. There are few small periventricular white matter signal nonspecific foci noted. These do not enhance and are not associated with surrounding edema. There are no ring enhancing lesions in the brain. There is no new abnormal meningeal enhancement. PITUITARY GLAND: No mass nor parasellar abnormality. No obvious abnormality in the cavernous sinuses. FLOW VOIDS: The expected flow void are noted. No evidence of obvious aneurysm nor obvious vascular ma lformation. PARANASAL SINUSES: The visualized paranasal sinuses appear unremarkable. ORBITS: No obvious new abnormal findings. IMPRESSION: 1. Postoperative frontal lobe changes but no new enhancing mass seen in the surgical bed. 2. No new abnormal meningeal enhancement. 3. No new ventriculomegaly nor shift of midline structures. No new extra-axial fluid collections. DATA REPOSITORY:
[2020-11-24] MEDS: Gadoterate meglumine 20 ML VIAL 17 ML IVP (14:23)
[2020-11-24] MEDS: Normal Saline Flush 10 ML SYR IVP (14:23)
== END 2020-11-24 02:30 ==
PROVIDERS: PCP Internal Medicine; Visit Provider Internal Medicine
DX: D32.9 Benign neoplasm of meninges, unspecified (principal)
CPT/HCPCS: 70553

== ENCOUNTER 2021-02-20 08:45 | Emergency (ER) | payer MEDICARE, MEDICAID, SELFPAY ==
[2021-02-20] VITALS (52 sets, daily range): BP systolic 90–132; BP diastolic 57–88; PULSE 85–126; RESP 8–35; TEMP 36.5; O2SAT 89–99
--- NOTE | 2021-02-20 09:00 | DI.CT_ITS ---
Exam(s) CT NECK W EXAM: CT NECK W CLINICAL HISTORY: difficulty swallowing, anterior neck pain. TECHNIQUE: Imaging Protocol: Axial computed tomography images with coronal and sagittal reformatted images were created and reviewed. CONTRAST MATERIAL: Intravenous: Omnipaque 350 Contrast volume:100 mL COMPARISON: CT CT neck w from 12/11/2018 FINDINGS: Orbits and orbital soft tissues: Within normal limits. Visualized paranasal sinuses: Within normal limits. Nasopharynx: Within normal limits. Oropharynx: Within normal limits. Hypopharynx: Within normal limits. Larynx: Within normal limits. Retropharyngeal space: Within normal limits. Parotids/submandibular: Within normal limits. Thyroid gland: Within normal limits. Lymphadenopathy: There is scattered lymph nodes seen along the level one to level three all measurin g less than 8 mm in short axis diameter which are physiologic in nature. Trachea: Within normal limits. Lung apices: Moderately severe centrilobular emphysema is seen. Bones: Within normal limits. Carotids/Jugular: Within normal limits. Soft tissues: Within normal limits. Esophagus: There is diffuse concentric thickening of the wall of the esophagus through its entire vis ualized length. IMPRESSION: 1. Diffuse concentric thickening of the wall of the esophagus through its entire visualized length. This may represent an inflammatory or infectious esophagitis. Though considered less likely, mass ca nnot be entirely excluded. Upper endoscopy should be considered for further evaluation. 2. Results of this exam have been verbally communicated with provider. RADIATION DOSE DELIVERED: 515.94mGy.cm Total DLP 515.94mGy.cm Total DLP DATA REPOSITORY: All CT scans at this facility are submitted to the National Radiology Data Registry (NRDR) Dose Index Registry (DIR) with the [employer] (ACR). RADIATION OPTIMIZATION: All CT scans at this facility use at least one of these dose optimization te chniques: automated exposure control; mA and/or kV adjustment per patient size (includes targeted exa ms where dose is matched to clinical indication); or iterative reconstruction.
--- NOTE | 2021-02-20 09:13 | ED.GENADUL_ITS ---
Discharge Plan Disposition Patient Disposition: AGAINST MEDICAL ADVICE Condition: Stable Discharge Details Clinical Impression: Impaired swallowing associated with throat pain Primary Care Provider: Gertrudis Uribe ED Provider: Natividad Sanchez Home Meds and New Rx's Prescriptions: Continued divalproex 125 mg capsule, delayed rel sprinkle 500 mg PO BID RF: 0 pregabalin [Lyrica] 25 mg capsule 25 mg PO TID Qty: 84 RF: 0 loratadine 10 mg tablet 10 mg PO DAILY Qty: 90 RF: 3 albuterol sulfate [Proventil HFA] 90 mcg/actuation HFA aerosol inhaler 1 - 2 puff Inhalation Q4H PRN PRN (Reason: shortness of breath or wheezing) Qty: 1 RF: 2 mirtazapine [Remeron SolTab] 45 MG tablet,disintegrating 45 mg PO HS RF: 0 aspirin 81 MG tablet,delayed release (DR/EC) 81 mg PO DAILY RF: 0 Hold Instructions: restart 08/08/20 per [facility] [place] acetaminophen 325 MG tablet 650 mg PO Q4H PRN Qty: 30 RF: 3 loperamide 2 MG capsule 4 mg PO QID PRNQty: 100 RF: 5 thiamine HCl (vitamin B1) 100 mg PO DAILY RF: 0 atorvastatin 80 mg tablet 80 mg PO DAILY Qty: 90 RF: 3 pantoprazole 40 mg tablet,delayed release (DR/EC) 40 mg PO DAILY Qty: 90 RF: 3 atenolol 100 mg tablet 100 mg PO DAILY Qty: 90 RF: 3 cilostazol 50 mg tablet 50 mg PO BID Qty: 180 RF: 3 Hold Instructions: restart 08/08/20 per [facility] [place]/c quetiapine [Seroquel] 200 mg tablet 400 mg PO BID RF: 0 Discharge Instructions Instructions: Dysphagia (ED) Additional Instructions: You have elected to leave AGAINST MEDICAL ADVICE. The risks of doing so are or permanent disability. You may return to the emergency department anytime if you choose to do so. Please return immediately to the emergency department if you develop any new or worsening symptoms, if your condition does not improve as expected, or if you become otherwise concerned. It is extremely important that you call soon as possible to make an appointment to be seen in follow-up for this visit by your primary care doctor and a surgeon for further evaluation as we discussed. Referrals: Gertrudis Uribe MD [Primary Care Provider] - Geraldine Glover DO [MD NON-[facility] STAFF PHYSICIAN] - Discharge Data Discharge Date/Time-TO BE ENTERED AT DEPARTURE: 02/20/21 16:07 Medical Decision Making Ulises Hernandez is a 55-year-old man with a history of hyperlipidemia, hypertension, Crohn's disease, GERD, chronic kidney disease history of heavy alcohol use in the past, current smoker, status post craniectomy for meningioma 07/31 who presented to the emergency department for sore throat and difficulty swallowing worsening over the past 2 days. On exam patient is well and nontoxic-appearing. Examination of his oropharynx is unremarkable. Normal voice. He is handling secretions without issue. There is no stridor. There is bilateral submandibular tenderness to palpation without apparent lymphadenopathy. Thyroid is mildly tender without enlargement or nodule. Concern for mass, abscess, esophageal pathology, other. Doubt foreign body. Exam/history at this time is not consistent with impending airway compromise, sepsis. Plan for IV placement, telemetry, screening labs, CT neck. Will monitor and reassess. Patient notes that he feels as if he is having to spit his secretions more frequently due to pain with swallowing. Is still able to swallow his secretions as before. No change in his examination. Plan for Decadron. Patient to CT. Labs reviewed, WBC normal, AG normal, lactate 1.5. Per radiology, patient with unspecified esophageal thickening, inflammatory versus infectious esophagitis versus mass. Surgery contacted, states patient may benefit from transfer for EGD at tertiary facility in the case of esophageal mass 1:10: [facility] beds, will consult GI 1:12: [facility] with no capacity, refuses Dr. Glover any of surgery states that upon reviewing images, thickening of esophagus is very similar to prior CT in the past. He states that she did confirm this with [facility] who agrees. I discussed patient presentation results with of gastroenterology at [facility], who reviewed images. She stated that she thought that EGD could be performed at [facility], and that patient does not necessitate transfer to [facility] at this time. Dr. Glover at bedside to see Pt, also discussed patient with Dr. Almodovar. Consensus between Dr. Glover, who has seen the patient, Dr. Almodovar, who has both reviewed images, is to admit patient to medicine here with barium swallow and EGD after 48 hours due to dual antiplatelet therapy. no further acute intervention recommended. Plan for admission. Patient states that as EGD would not be done until after the weekend, he does not want to stay in the hospital. Patient reports that he thinks he can drink liquids fine and does not want to be hospitalized. Attempted to have Pt drink, which he stated he could do fine with a straw. Pt had significant coughing when attempting to drink with a straw. I discussed my concern for life-threatening decompensation if he were to leave AMA given his difficulty drinking fluids. Pt states, I'm not sitting in the hospital all weekend. I'll eat ice cream and come back if I get worse. I had a lengthy discussion with patient regarding risks of leaving AGAINST MEDICAL ADVICE, including or permanent disability. Patient states repeatedly that he has spent significant amount of time waiting in the hospital for days with nothing happening and does not want to be admitted. I had a lengthy discussion with the patient reiterating the reason for admission, including IV hydration, monitoring, medical and procedural intervention as necessary. Patient continues to refuse admission. Patient has capacity for informed decision making and refusal. Pt placed on care management list for outpt f/u with surgery. Pt left the ED without further incident. Medical Records Medical records reviewed: Yes I reviewed the patient's medical records. Imaging Data Radiologic Study: Attestation: I personally reviewed and interpreted this imaging study as follows: Radiologist's impression: EXAM: CT NECK W CLINICAL HISTORY: difficulty swallowing, anterior neck pain. TECHNIQUE: Imaging Protocol: Axial computed tomography images with coronal and sagittal reformatted images were created and reviewed. CONTRAST MATERIAL: Intravenous: Omnipaque 350 Contrast volume:100 mL COMPARISON: CT CT neck w from 12/11/2018 FINDINGS: Orbits and orbital soft tissues: Within normal limits. Visualized paranasal sinuses: Within normal limits. Nasopharynx: Within normal limits. Oropharynx: Within normal limits. Hypopharynx: Within normal limits. Larynx: Within normal limits. Retropharyngeal space: Within normal limits. Parotids/submandibular: Within normal limits. Thyroid gland: Within normal limits. Lymphadenopathy: There is scattered lymph nodes seen along the level one to level three all measuring less than 8 mm in short axis diameter which are physiologic in nature. Trachea: Within normal limits. Lung apices: Moderately severe centrilobular emphysema is seen. Bones: Within normal limits. Carotids/Jugular: Within normal limits. Soft tissues: Within normal limits. Esophagus: There is diffuse concentric thickening of the wall of the esophagus through its entire visualized length. IMPRESSION: 1. Diffuse concentric thickening of the wall of the esophagus through its entire visualized length. This may represent an inflammatory or infectious esophagitis. Though considered less likely, mass cannot be entirely excluded. Upper endoscopy should be considered for further evaluation. 2. Results of this exam have been verbally communicated with provider. Lab Data Lab results reviewed: Yes I reviewed the patient's lab results. Labs: Laboratory Tests Range/Units 02/20/21 02/20/21 02/20/21 09:30 09:35 09:35 WBC (4.4-10.8) 10^3/uL RBC (4.36-5.78) 10^6/uL Hgb (13.5-17.5) g/dL Hct (40.0-50.0) % MCV (80-95) fL MCH (27.0-33.0) pg MCHC (32.0-36.0) % RDW (11.8-14.1) % Plt Count (130-400) 10^3/uL MPV (8.0-11.0) fL Immature Gran % Neutrophils % Lymphocytes % Monocytes % Eosinophils % Basophils % Nucleated RBC % % Absolute Neutrophils (1.2-6.7) 10^3/uL Absolute Lymphocytes (1.2-3.4) 10^3/uL Absolute Monocytes (0.1-0.8) 10^3/uL Absolute Eosinophils (0.0-0.7) 10^3/uL Absolute Basophils (0.0-0.2) 10^3/uL RBC Morphology Polychromasia Poikilocytosis VBG Lactate (0.6-1.4) mmol/L 1.5 H Sodium (136-145) mmol/L 138 Potassium (3.5-5.1) mmol/L 4.6 Chloride (98-107) mmol/L 106 Carbon Dioxide (21.0-32.0) mmol/L 24.3 Anion Gap (3-11) mmol/L 7.7 BUN (7-18) mg/dL 13 Creatinine (0.70-1.30) mg/dL 1.7 H Estimated GFR/1.73 m2 (mL/min/1.73m2) 40.53 Glucose (74-106) mg/dL 89 Calcium (8.5-10.1) mg/dL 9.1 Total Bilirubin (0.2-1.0) mg/dL 0.3 AST (15-37) U/L 18 ALT (16-63) U/L 22 Alkaline Phosphatase (46-116) U/L 116 Total Protein (6.4-8.2) g/dL 8.6 H Albumin (3.4-5.0) g/dL 4.0 TSH (0.36-3.74) uIU/mL COVID-19 Source Nasal/Nares SARS-CoV-2 (PCR) (Negative) Negative Range/Units 02/20/21 02/20/21 09:35 09:35 WBC (4.4-10.8) 10^3/uL 8.97 RBC (4.36-5.78) 10^6/uL 4.84 Hgb (13.5-17.5) g/dL 13.6 Hct (40.0-50.0) % 44.2 MCV (80-95) fL 91.3 MCH (27.0-33.0) pg 28.1 MCHC (32.0-36.0) % 30.8 L RDW (11.8-14.1) % 16.2 H Plt Count (130-400) 10^3/uL 208 MPV (8.0-11.0) fL 12.9 H Immature Gran % 0.2 Neutrophils % 69.3 Lymphocytes % 18.4 Monocytes % 10.7 Eosinophils % 1.0 Basophils % 0.4 Nucleated RBC % % 0 Absolute Neutrophils (1.2-6.7) 10^3/uL 6.21 Absolute Lymphocytes (1.2-3.4) 10^3/uL 1.65 Absolute Monocytes (0.1-0.8) 10^3/uL 0.96 H Absolute Eosinophils (0.0-0.7) 10^3/uL 0.09 Absolute Basophils (0.0-0.2) 10^3/uL 0.04 RBC Morphology See Below Polychromasia Present Poikilocytosis 1+ VBG Lactate (0.6-1.4) mmol/L Sodium (136-145) mmol/L Potassium (3.5-5.1) mmol/L Chloride (98-107) mmol/L Carbon Dioxide (21.0-32.0) mmol/L Anion Gap (3-11) mmol/L BUN (7-18) mg/dL Creatinine (0.70-1.30) mg/dL Estimated GFR/1.73 m2 (mL/min/1.73m2) Glucose (74-106) mg/dL Calcium (8.5-10.1) mg/dL Total Bilirubin (0.2-1.0) mg/dL AST (15-37) U/L ALT (16-63) U/L Alkaline Phosphatase (46-116) U/L Total Protein (6.4-8.2) g/dL Albumin (3.4-5.0) g/dL TSH (0.36-3.74) uIU/mL 1.73 COVID-19 Source SARS-CoV-2 (PCR) (Negative) HPI General Mode of arrival: ambulatory . Date/Time Provider Initiated Documentation: 02/20/21 09:11 . Limitations to Documentation: no limitations . Information obtained by: patient, RN notes reviewed and old records reviewed . HPI Narrative: Ulises Hernandez is a 65-year-old man with history of hypertension, hyperlipidemia, GERD, chronic kidney disease, Crohn's disease status post ileostomy, meningioma status post craniotomy 2020, bipolar disease presenting to emergency department with chief complaint painful swallowing. Patient reports that 2 days ago he noticed the swelling was painful. This has gradually worsen ed. Patient reports that today not only the swelling painful, but he was unable to swallow his pills this morning as usual. Patient reports that he had to crush them up in order to get them down. Patient reports that he has not had anything to eat today because of this. Patient reports that yesterday he was able to eat and drink, although he did notice some difficulty with swallowing. Patient reports that he typically sleeps in his bed with 2 pillows, and he did so last night as usual. He has not been spitting out his saliva, however he reports that it is painful to swallow his own secretions. He reports that pain feels like it is in the front of his neck. He denies trauma or other known inciting event. Patient reports that he was a heavy drinker in the past, stopped drinking alcohol July 2020 after craniotomy for meningioma. Is a cigarette smoker. He denies any other pain, fever, shortness of breath, cough, vomiting, diarrhea, numbness, weakness, extremity swelling, rash. Related Data Home Medications Medication Instructions Recorded Confirmed mirtazapine [Remeron SolTab] 45 mg PO HS tab-cap 09/12/12 02/20/21 aspirin 81 mg PO DAILY tab 10/17/12 02/20/21 acetaminophen 650 mg PO Q4H PRN #30 tab-cap 08/23/16 02/20/21 loperamide 4 mg PO QID PRN #100 tab-cap 02/08/17 02/20/21 albuterol sulfate 90 mcg/actuation 1 - 2 puff INHALATION Q4H PRN PRN 04/15/20 02/20/21 aerosol inhaler #1 inhaler loratadine 10 mg tablet 10 mg PO DAILY #90 tab-cap 04/15/20 02/20/21 quetiapine 200 mg tablet 400 mg PO BID tab 04/15/20 02/20/21 divalproex 125 mg capsule,delayed 500 mg PO BID cap 08/04/20 02/20/21 release sprinkle thiamine HCl (vitamin B1) 100 mg PO DAILY 11/28/20 02/20/21 atorvastatin 80 mg tablet 80 mg PO DAILY #90 tab 01/19/21 02/20/21 pantoprazole 40 mg tablet,delayed 40 mg PO DAILY #90 tab-cap 01/19/21 02/20/21 release atenolol 100 mg tablet 100 mg PO DAILY #90 tab-cap 01/20/21 02/20/21 cilostazol 50 mg tablet 50 mg PO BID #180 tab-cap 01/20/21 02/20/21 pregabalin 25 mg capsule 25 mg PO TID #84 cap 02/17/21 02/20/21 Previous Rx's Medication Instructions Recorded albuterol sulfate 90 mcg/actuation 1 - 2 puff INHALATION Q4H PRN PRN 04/15/20 aerosol inhaler #1 inhaler loratadine 10 mg tablet 10 mg PO DAILY #90 tab-cap 04/15/20 atorvastatin 80 mg tablet 80 mg PO DAILY #90 tab 01/19/21 pantoprazole 40 mg tablet,delayed 40 mg PO DAILY #90 tab-cap 01/19/21 release atenolol 100 mg tablet 100 mg PO DAILY #90 tab-cap 01/20/21 cilostazol 50 mg tablet 50 mg PO BID #180 tab-cap 01/20/21 pregabalin 25 mg capsule 25 mg PO TID #84 cap 02/17/21 Allergies Allergy/AdvReac Type Severity Reaction Status Date / Time infliximab [From Remicade] Allergy Unknown rash, Verified 02/20/21 08:58 flushing lamotrigine Allergy Unknown Rash Verified 02/20/21 08:58 hydromorphone HCl AdvReac Intermediate itching Verified 02/20/21 08:58 [From Dilaudid] General Stated Complaint: Nk/Back Pain RANDALL: 3 Review of Systems Narrative: Constitutional: denies fevers Eyes: denies eye pain ENT: denies ear pain, dental pain, reports sore throat, painful and difficult swallowing Cardiovascular: denies chest pain, edema Respiratory: denies SOB, cough GI: denies abdominal pain, vomiting, diarrhea : denies flank pain MSK: denies back pain, neck pain, arthralgias, myalgias Skin: denies rash Neuro: denies headaches, numbness, weakness PFSH Medical History Acute kidney injury (07/31/16) Alcohol abuse Alcoholic peripheral neuropathy Bipolar disorder Brain mass meningioma Chest pain, non-cardiac (08/10/16) negative enzymes, normal dobutamine stress echo 08/2016 Cardiac catheterization 08/30/2016: Non-obstructive CAD Crohn disease Essential hypertension Hx of tonic-clonic seizures Ileostomy present PVD (peripheral vascular disease) Seizure (07/27/20) Tobacco abuse Tubular adenoma of colon Surgical History Angioplasty (09/27/12) Right external iliac and common iliac arteries Colonoscopy - IV Sedation (04/29/15) 3mm polyp in transverse colon coronary angiography (08/30/16) L heart catheterization [facility] [place]leoscopy (07/13/17) 06/16/[address] Duran Haskins, recommendation to repeat in 1 year. Report scanned PARTIAL ILEAL COLECTOMY AND DLI (08/10/16) Stent placement (09/27/12) RIght external iliac and common iliac arteries Family History Mother Essential hypertension Diabetes Heart disease Stroke Social History Smoking/Tobacco Use Status: Current every day Tobacco Type: cigarettes Tobacco: How many years used: 55 Smoking risk assessment performed?: Yes Alcohol Intake: former Drug use: Occasionally Substance use type: marijuana Details: only 2 beers since mid july 2020 Household members: none Housing: apartment Number of Children: 2 Communication Needs: None Pets and animals: Yes Pets and animals: cat(s) Current gender identity: male What type of physical activity do you participate in: none and walking Seatbelt use: always Drive intox or ride w/intox jinrikisha driver: No Water heater temp set <120 deg: Yes Working smoke detector in home: Yes Fire extinguisher in home: Yes Carbon monox detector in home: Yes Do you feel safe at home: Yes Do you feel safe in your relationship?: Yes Exam Narrative Exam Narrative: Constitutional: well and [id number], pleasant, conversing normally HENT: head atraumatic/normocephalic/normal inspection, mucous membranes moist, posterior oropharynx without erythema or edema, no exudate, uvula midline, no sublingual induration, no intraoral lesion, no hoarseness of voice, no pooling of secretions, no drooling, bilateral submandibular tenderness to palpation without apparent lymphadenopathy Eyes: conjunctiva normal, sclera normal, pupils 3mm b/l Neck: no stridor, normal ROM, trachea midline. Mild tenderness palpation of the thyroid without enlargement or nodule palpated. Chest: normal inspection Resp: normal work of breathing, speaking in full sentences Cardio: normal rate, normal rhythm Skin: warm, dry, normal color, no rash Neuro: alert, not altered, grossly non-focal, normal tone Ext: no edema Psych: normal mood, normal affect, normal behavior Course Vital Signs Vital signs: Vital Signs Temperature 36.5 C 02/20/21 08:53 Pulse 97 H 02/20/21 08:53 Respiratory Rate 14 02/20/21 08:53 Blood Pressure 132/79 02/20/21 08:53 Pulse Oximetry 98 08/13/21 08:53 Temperature 36.5 C 02/20/21 08:53 Temperature Source Skin 02/20/21 08:53 Pulse 97 H 02/20/21 08:53 Respiratory Rate 14 02/20/21 08:53 Respiratory Effort Non-Labored 02/20/21 09:01 Blood Pressure 132/79 02/20/21 08:53 Blood Pressure Position Sitting 02/20/21 08:53 Pulse Oximetry 98 02/20/21 08:53 Oxygen Delivery Method Room Air 02/20/21 08:53 Oxygen Flow Rate 0 02/20/21 08:53 Pain Level 8 02/20/21 08:53
[2021-02-20 09:46] LABS: Source Nasal/Nares
[2021-02-20 09:48] LABS: Abs Immature Grans 0.02 10^3/uL (0.0-0.06); Absolute Basophil Count 0.04 10^3/uL (0.0-0.2); Absolute Eosinophil Count 0.09 10^3/uL (0.0-0.7); Absolute Lymphocyte Count 1.65 10^3/uL (1.2-3.4); Absolute Monocyte Count 0.96 10^3/uL (0.1-0.8); Absolute Neutrophil Count 6.21 10^3/uL (1.2-6.7); Basophils % 0.4; HCT 44.2 % (40.0-50.0); HGB 13.6 g/dL (13.5-17.5); Immature Grans % 0.2; Lactate 1.5 mmol/L (0.6-1.4); Lymphocytes % 18.4; MCH 28.1 pg (27.0-33.0); MCHC 30.8 % (32.0-36.0); MCV 91.3 fL (80-95); MPV 12.9 fL (8.0-11.0); Monocytes % 10.7; Neutrophils % 69.3; Nucleated RBC 0 %; RBC 4.84 10^6/uL (4.36-5.78); RDW 16.2 % (11.8-14.1); RDW-SD 54.7 fL; WBC 8.97 10^3/uL (4.4-10.8)
[2021-02-20 10:04] LABS: ALT 22 U/L (16-63); AST 18 U/L (15-37); Alkaline Phosphatase 116 U/L (46-116); Anion Gap 7.7 mmol/L (3-11); BUN 13 mg/dL (7-18); Bilirubin, Total 0.3 mg/dL (0.2-1.0); CO2 24.3 mmol/L (21.0-32.0); CREATININE 1.7 mg/dL (0.70-1.30); Calcium 9.1 mg/dL (8.5-10.1); Chloride 106 mmol/L (98-107); Estimated GFR 40.53 (mL/min/1.73m2); Glucose 89 mg/dL (74-106); Potassium 4.6 mmol/L (3.5-5.1); Sodium 138 mmol/L (136-145); Total Protein 8.6 g/dL (6.4-8.2)
[2021-02-20 10:06] LABS: Platelet Count 208 10^3/uL (130-400)
[2021-02-20 10:07] LABS: Diff Comment Agrees w/ Instrument; Poikilocytes 1+; Polychromasia Present
[2021-02-20] MEDS: Normal Saline 500 ML IV (10:08)
[2021-02-20 10:41] LABS: COVID-19 PCR Negative (Negative)
[2021-02-20] MEDS: Omnipaque 350 MG/ML 100 ML BTL IJ (10:54)
[2021-02-20] MEDS: Normal Saline Flush 10 ML SYR IVP (10:55)
[2021-02-20] MEDS: Normal Saline - Diluent 50 ML VIAL IV (10:55)
[2021-02-20] MEDS: Dexamethasone 10 MG/ML VIAL IVP (11:03)
[2021-02-20] MEDS: Pantoprazole 40 MG VIAL IVP (11:45)
[2021-02-20 13:52] LABS: TSH (W/Ref FT4) 1.73 uIU/mL (0.36-3.74)
--- NOTE | 2021-02-20 15:22 | W.SURGCON ---
Assessment and Plan Assessment and plan (1) Dysphagia: Status: Acute Assessment and plan: -Plan to obtain upper GI with barium swallow to better determine presence/degree of narrowing, presence of a mass and/or determine ability to swallow -Maintain hydration with IVF -IV PPI while inpatient -s/p 10mg IV Decadron -Monitor electrolytes -Continue supportive care -Medical management per hospitalist Qualifiers: Dysphagia type: oropharyngeal phase Qualified Code(s): R13.12 - Dysphagia, oropharyngeal phase (2) Odynophagia: Status: Acute History of Present Illness History of Present Illness Chief Complaint: dysphagia and odonophagia Narrative: This is a pleasant 65 year old male who presented to the ER today with 3 days of worsening dysphagia and odonophagia. He reports he visited his father last week in [place] who has a similar problem with his throat but has had it for years. He denies any trauma, recent illness, fever, chills, pain with movement, hemoptysis, nausea or vomiting. He smokes approximately 10 cigarettes per day but denies this worsening his discomfort. Since being in the emergency department he had basic labs done which were essentially within normal limits aside from a slightly elevated creatinine of 1.7 from his baseline of 1.5. A CT scan of the neck with IV was performed revealing what appears to be diffuse concentric esophageal thickening which can be seen with esophagitis. Interestingly the patient had a CT neck in [address] images without mention of esophageal thickening. He was able to swallow his saliva and secretions during my 15 minute evaluation which included me going over his CT scan images from today and 2019 with him.He reports localized pain over the anterior neck directly overlying his thyroid, which is mobile with swallowing. Due to persistent symptoms and after speaking to radiology we determined he would benefit from Barium Swallow as the initial study of choice especially since he is on dual antiplatelet therapy and has multiple medical comorbidities. If he is unable to keep himself hydrated/nourished with meal replacement shakes he should be admitted to the medical service and surgery will follow in consult. The pending results of his barium swallow will determine need for EGD for biopsies which can likely be done as an outpatient if he shows signs of clinical improvement in the next 24 hours. Other possible differentials include thyroiditis, mass/malignancy, esophagitis. I did also speak with [facility] in the emergency department who were in agreement with the aforementioned plan. Consults Consult date: 02/20/21 Review of Systems Constitutional Constitutional: Denies anorexia, Denies chills, Denies fatigue, Denies fever(s), Denies malaise, Denies poor appetite and Reports weight loss Comments: reported 13 lb wt loss in 2 months 2/2 eating less ENT Ears, Nose, Mouth, and Throat: Denies change in voice, Denies dental pain, Reports dysphagia, Denies dizziness, Denies dry mouth, Denies hoarseness, Denies mouth lesions, Denies mouth pain, Denies neck mass, Reports neck pain, Reports odynophagia, Reports sore throat and Denies tongue swelling Cardiovascular Cardiovascular: Denies dyspnea Respiratory Respiratory: Reports cough, Denies hemoptysis, Denies dyspnea and Denies stridor Gastrointestinal Gastrointestinal: Denies abdominal pain, Reports dysphagia, Denies dyspepsia, Denies heartburn, Reports loose stools (chronic), Reports odynophagia and Denies vomiting Musculoskeletal Musculoskeletal: Reports neck pain Integumentary/Breasts Skin/Breast: Denies rash Neurologic Neurologic: Denies dizziness Endocrine Endocrine: Denies fatigue Allergic/Immunologic Allergic/Immunologic: Denies tongue swelling [facility] Medical History Acute kidney injury (07/31/16) Alcohol abuse Alcoholic peripheral neuropathy Bipolar disorder Brain mass meningioma Chest pain, non-cardiac (08/10/16) negative enzymes, normal dobutamine stress echo 08/2016 Cardiac catheterization 08/30/2016: Non-obstructive CAD Crohn disease Essential hypertension Hx of tonic-clonic seizures Ileostomy present PVD (peripheral vascular disease) Seizure (07/27/20) Tobacco abuse Tubular adenoma of colon Surgical History Angioplasty (09/27/12) Right external iliac and common iliac arteries Colonoscopy - IV Sedation (04/29/15) 3mm polyp in transverse colon coronary angiography (08/30/16) L heart catheterization [facility] Ileoscopy (07/13/17) 06/16/[address] Duran Haskins, recommendation to repeat in 1 year. Report scanned PARTIAL ILEAL COLECTOMY AND DLI (08/10/16) Stent placement (09/27/12) RIght external iliac and common iliac arteries Family History Mother Essential hypertension Diabetes Heart disease Stroke Social History Smoking/Tobacco Use Status: Current every day Tobacco Type: cigarettes Tobacco: How many years used: 55 Smoking risk assessment performed?: Yes Alcohol Intake: former Drug use: Occasionally Substance use type: marijuana Details: only 2 beers since mid july 2020 Household members: none Housing: apartment Number of Children: 2 Communication Needs: None Pets and animals: Yes Pets and animals: cat(s) Current gender identity: male What type of physical activity do you participate in: none and walking Seatbelt use: always Drive intox or ride w/intox commercial front load driver: No Water heater temp set <120 deg: Yes Working smoke detector in home: Yes Fire extinguisher in home: Yes Carbon monox detector in home: Yes Do you feel safe at home: Yes Do you feel safe in your relationship?: Yes Exam Const General: cooperative, comfortable and no acute distress Orientation: alert, awake and oriented x3 HENMT Head: other (scar from craniectomy) Ears: external ears normal General nose exam: external nose normal Mouth: oral mucosae normal, lip normal, tongue normal, oropharynx normal, moist mucous membranes, no audible dysphonia, no drooling, No mouth trauma and no muffled voice Neck Neck: normal visual inspection, full ROM, no lymphadenopathy and No JVD Thyroid: symmetrical, no masses and tender Carotids: pulses diminished Lymphatic: lymphadenopathy noted Resp Effort & Inspection: normal respiratory effort, no audible wheezes, no cough, no respiratory distress, no stridor, no tracheal deviation and no use of accessory muscles Cardio Rate: regular rate GI Inspection: non-distended Palpation: soft, hernia other (chronic parastomal), nontender and other (ileostomy with parastomal hernia) Percussion: normal to percussion Skin General skin exam: no rashes or lesions noted Psych Appearance: grossly normal Mental Status: mental status grossly normal Speech and Movement: speech and movement normal Mood: congruent mood Affect: normal affect Attitude: cooperative Thought Process: normal Thought Content: normal Results Last Vital Signs Temp 97.7 F 02/20/21 08:53 Pulse 91 H 02/20/21 14:30 Resp 23 02/20/21 14:40 BP 107/68 02/20/21 14:30 Pulse Ox 95 02/20/21 14:40 Labs Result diagrams: 02/20/21 09:35 02/20/21 09:35 Labs: Laboratory Results - last 24 hr 02/20/21 02/20/21 02/20/21 09:30 09:35 09:35 WBC RBC Hgb Hct MCV MCH MCHC RDW Plt Count MPV Immature Gran % Neutrophils % Lymphocytes % Monocytes % Eosinophils % Basophils % Nucleated RBC % Absolute Neutrophils Absolute Lymphocytes Absolute Monocytes Absolute Eosinophils Absolute Basophils RBC Morphology Polychromasia Poikilocytosis VBG Lactate 1.5 H Sodium 138 Potassium 4.6 Chloride 106 Carbon Dioxide 24.3 Anion Gap 7.7 BUN 13 Creatinine 1.7 H Estimated GFR/1.73 m2 40.53 Glucose 89 Calcium 9.1 Total Bilirubin 0.3 AST 18 ALT 22 Alkaline Phosphatase 116 Total Protein 8.6 H Albumin 4.0 TSH COVID-19 Source Nasal/Nares SARS-CoV-2 (PCR) Negative 02/20/21 02/20/21 09:35 09:35 WBC 8.97 RBC 4.84 Hgb 13.6 Hct 44.2 MCV 91.3 MCH 28.1 MCHC 30.8 L RDW 16.2 H Plt Count 208 MPV 12.9 H Immature Gran % 0.2 Neutrophils % 69.3 Lymphocytes % 18.4 Monocytes % 10.7 Eosinophils % 1.0 Basophils % 0.4 Nucleated RBC % 0 Absolute Neutrophils 6.21 Absolute Lymphocytes 1.65 Absolute Monocytes 0.96 H Absolute Eosinophils 0.09 Absolute Basophils 0.04 RBC Morphology See Below Polychromasia Present Poikilocytosis 1+ VBG Lactate Sodium Potassium Chloride Carbon Dioxide Anion Gap BUN Creatinine Estimated GFR/1.73 m2 Glucose Calcium Total Bilirubin AST ALT Alkaline Phosphatase Total Protein Albumin TSH 1.73 COVID-19 Source SARS-CoV-2 (PCR)
--- NOTE | 2021-02-20 16:00 | NUR.NOTE ---
Nursing Note: Referral faxed to [facility] for difficulty breathing, NIC. Dr. Glover evaluated the patient. Uzma Enamorado
== END 2021-02-20 16:07 | disposition left against medical advice (07) ==
PROVIDERS: Emergency Provider Student in an Organized Health Care Education/Training Program; PCP Internal Medicine
DX: R07.0 Pain in throat (principal); R10.13 Epigastric pain; Z53.29 Procedure and treatment not carried out because of patient's decision for other reasons; R93.3 Abnormal findings on diagnostic imaging of other parts of digestive tract; Z20.822 Contact with and (suspected) exposure to COVID-19; Z03.818 Encounter for observation for suspected exposure to other biological agents ruled out
CPT/HCPCS: 36415; 70491; 80053; 87635; 96361; 96374; 96375; 99285; 83605; 84443; 85025; 99284; J1100; J3490

== ENCOUNTER 2021-03-24 01:25 | Outpatient (CLI) | payer MEDICARE, MEDICAID, SELFPAY ==
--- NOTE | 2021-03-24 14:12 | DI.CTLCSR_ITS ---
Exam(s) CT CHEST LUNG CANCER SCREEN EXAM: CT CHEST LUNG CANCER SCREEN CLINICAL HISTORY: Screening for lung cancer,CURRENT SMOKER, F17.210 TECHNIQUE: Imaging Protocol: Axial computed tomography images with coronal and sagittal reformatted images were created and reviewed COMPARISON: CT CT CHEST LUNG CANCER SCREEN from 03/18/2020 FINDINGS: Tracheobronchial tree: Patent where visualized. Mediastinum and Annalise: No dominant adenopathy or fluid collection. Pulmonary parenchyma: Moderate to severe emphysematous changes greater in the upper lobes. Roughly 1 0 millimeter area of scarring is seen in the right upper lobe midst emphysematous changes, not eviden t on the previous exam. No consolidation. Lung Nodules: A 5 millimeter nodule versus mild scarring is stable in the left lower lobe. Pleura: No effusion or pneumothorax. Heart: The heart is not dilated. Minimal coronary artery calcifications are seen. Aorta: Thoracic aorta non-dilated.Mild calcification. Upper abdomen: Unremarkable. Bones: Within normal limits for age. Soft Tissues: Unremarkable. IMPRESSION: 10 millimeter area of probable scarring in the right upper lobe, new since the previous exam. A thre e-month follow-up exam could be considered. Lung RADS Cat 4A - Suspicious: Findings for which additional diagnostic testing and/or tissue samplin g recommended Lung-RADS 1.0 CATEGORIES: Category 0 - Prior chest CT exam(s) being located for comparison. Category 1 - Annual screening in 12 months. No nodules or definitely benign nodules. Category 2 - Annual screening in 12 months. Benign appearance. Nodules with low likelihood of becomin g active cancer. Category 3 - 6-month follow-up. Probably benign. Short-term follow-up suggested. Nodules with low lik elihood of becoming active cancer. Category 4A - 3-month follow-up and CT/PET if >8 mm in size. Suspicious finding. Findings which requi re additional testing. Category 4B - Findings which require additional testing and tissue sampling. Modifier S- Potentially clinically significant findings (non lung cancer) RADIATION DOSE DELIVERED: 78.79mGy.cm Total DLP 1.84mGy CTDIvol DATA REPOSITORY: All CT scans at this facility are submitted to the National Radiology Data Registry (NRDR) Dose Index Registry (DIR) with the [employer] (A[employer]). RADIATION OPTIMIZATION: All CT scans at this facility use at least one of these dose optimization te chniques: automated exposure control; mA and/or kV adjustment per patient size (includes targeted exa ms where dose is matched to clinical indication); or iterative reconstruction.
== END 2021-03-24 01:45 ==
PROVIDERS: PCP Internal Medicine; Visit Provider Internal Medicine
DX: Z12.2 Encounter for screening for malignant neoplasm of respiratory organs (principal); F17.210 Nicotine dependence, cigarettes, uncomplicated; J98.4 Other disorders of lung; R91.8 Other nonspecific abnormal finding of lung field
CPT/HCPCS: 71271

== ENCOUNTER 2021-05-20 00:42 | Outpatient (CLI) | payer MEDICARE, MEDICAID, SELFPAY ==
--- NOTE | 2021-05-20 14:00 | DI.MRI_ITS ---
Exam(s) MR BRAIN WO/W EXAM: MR BRAIN WO/W CLINICAL HISTORY: MENINGIOMA D32.9 POST RESECTION 08/2020 TECHNIQUE: Multiplanar multisequence MRI of the brain was performed. Both noninfused and contrast i nfused sequences were performed. IV Contrast injected was 16 cc Dotarem. COMPARISON: MR MR BRAIN WO/W from 11/24/2020 FINDINGS: CEREBRAL PARENCHYMA: The surgical bed site in the floor of the frontal lobe region appears stable, with no evidence of new enhancing mass. The amount of edema in the surrounding tissues unchanged. No new enhancement in th is region nor abnormal meningeal enhancement. No new findings in the adjacent paranasal sinuses and ethmoidal air cells. Small amount mucosal thickening in the sphenoid sinus floor is unchanged. No n ew orbital findings. The expected flow voids in the anterior cerebral arteries in this region appear s satisfactory and unchanged. Middle cerebral artery flow voids also appears satisfactory and unchan ged. No evidence of intracranial hemorrhage, new mass effect nor shift of midline structure. No extraaxial fluid collections. Ventricles are not enlarged nor shifted. There is no significant focal signal abnormality in the cerebellar hemispheres nor within the lisandra, m idbrain, and thalami. Previously described foci of Casie-supra ventricular white matter are unchanged. There are no ring enhancing lesions in the brain. There is no abnormal meningeal enhancement. PITUITARY GLAND: No mass nor parasellar abnormality. No obvious abnormality in the cavernous sinuses. FLOW VOIDS: The expected flow void are noted. No evidence of obvious aneurysm nor obvious vascular ma lformation. PARANASAL SINUSES: The visualized paranasal sinuses appear unremarkable. ORBITS: No obvious new abnormal findings. IMPRESSION: 1. Continued stable appearance of the frontal lobe region operative site. No evidence of hemorrhage nor new enhancing mass in this region or elsewhere in the brain. No new abnormal meningeal enhanceme nt. 2. Other white matter findings are also stable. DATA REPOSITORY:
[2021-05-20] MEDS: Gadoterate meglumine 20 ML VIAL 16 ML IVP (14:15)
[2021-05-20] MEDS: Normal Saline Flush 10 ML SYR IVP (14:15)
== END 2021-05-20 01:02 ==
PROVIDERS: PCP Internal Medicine; Visit Provider Internal Medicine
DX: D32.9 Benign neoplasm of meninges, unspecified (principal); R90.82 White matter disease, unspecified
CPT/HCPCS: 70553

== ENCOUNTER → 2021-10-19 01:06 | Outpatient (CLI) | payer OTHER, MEDICAID, SELFPAY ==
--- NOTE | 2021-10-19 15:19 | DI.CT_ITS ---
Exam(s) CT CHEST WO EXAM: CT CHEST WO CLINICAL HISTORY: f/u screening LDCT findings,abnl ct scan,r91.8,scarring. TECHNIQUE: Imaging protocol: Axial computed tomography images were obtained and coronal and sagittal reformatted images were created and reviewed. COMPARISON: CT CT CHEST LUNG CANCER SCREEN from 03/24/2021 FINDINGS: Tracheobronchial tree: Patent where visualized. Mediastinum and Annalise: No dominant adenopathy or fluid collection. Pulmonary parenchyma: No consolidation or dominant measurable mass. Moderate to severe facet is hunt ges greater in the upper lobes. The previously questioned area of nodular scarring in the right uppe r lobe is not seen on the present exam. 4 millimeter nodule left lower lobe. Mild scarring lingula and inferior medial right middle lobe. Pleura: No effusion or pneumothorax. Heart: The heart is not dilated. No coronary artery calcifications are seen. Aorta: Thoracic aorta non-dilated. Upper abdomen: Unremarkable. Lymph nodes: Within normal limits. Bones:Mild degenerative changes IMPRESSION: Previously noted right upper lobe nodule no longer present and may represent an area of confluence of structures in the midst of emphysematous changes. Stable tiny left lower lobe nodule. Low-dose screening CT could be performed in 1 year. RADIATION DOSE DELIVERED: 568.14mGy.cm Total DLP 568.14mGy.cm Total DLP DATA REPOSITORY: All CT scans at this facility are submitted to the National Radiology Data Registry (NRDR) Dose Index Registry (DIR) with the [employer] (ACR). RADIATION OPTIMIZATION: All CT scans at this facility use at least one of these dose optimization te chniques: automated exposure control; mA and/or kV adjustment per patient size (includes targeted exa ms where dose is matched to clinical indication); or iterative reconstruction.
== END ==
PROVIDERS: PCP Internal Medicine; Visit Provider Internal Medicine
DX: R91.1 Solitary pulmonary nodule (principal); J98.4 Other disorders of lung
CPT/HCPCS: 71250

== ENCOUNTER 2022-02-08 07:11 | Emergency (ER) | payer OTHER, MEDICAID, SELFPAY ==
[2022-02-08 07:14] VITALS: BP 160/83; PULSE 86; RESP 16; TEMP 37.1; O2SAT 98
--- NOTE | 2022-02-08 08:07 | W.ED.GENAD ---
Discharge Plan Disposition Patient Disposition: HOME Condition: Poor Discharge Details Clinical Impression: Corneal ulcer Primary Care Provider: Christie Pratt ED Provider: Lawanda Silva Home Meds and New Rx's Prescriptions: Continued divalproex 125 mg capsule, delayed rel sprinkle 500 mg PO BID nicotine [Nicoderm CQ] 21 mg/24 hr patch 24 hour 1 patch transdermal Q24H Qty: 28 2RF (DME) Comvatec Ostomy bags 5 inches See Rx Instructions .Route .MEDSUPPLY Qty: 1 0RF Rx Instructions: #[id number] dispense 2 boxes (of 10 per box) per month w/ refills (DME) Ostomy barrier strips See Rx Instructions .Route .MEDSUPPLY Qty: 1 0RF Rx Instructions: #[id number] dispense 1 box per month w refills. albuterol sulfate [Proventil HFA] 90 mcg/actuation HFA aerosol inhaler 1 - 2 puff Inhalation Q4H PRN PRN (Reason: shortness of breath or wheezing) Qty: 1 2RF loratadine 10 mg tablet 10 mg PO DAILY Qty: 90 3RF multivitamin Tablet 1 tab PO DAILY hemp oil 3,000 mg PO pregabalin [Lyrica] 75 mg capsule 75 mg PO TID Qty: 84 2RF mirtazapine [Remeron SolTab] 45 MG tablet,disintegrating 45 mg PO HS Rx Instructions: [facility] aspirin 81 MG tablet,delayed release (DR/EC) 81 mg PO DAILY Hold Instructions: restart 08/08/20 per [facility] d/c Label Comments: 02/22/17 PT. STATES PT TAKES ONE QD. Pt hasnt taken in a while- ran out and hasnt picked up more acetaminophen 325 MG tablet 650 mg PO Q4H PRN Qty: 30 Rx Instructions: [facility] DISCHARGE loperamide 2 MG capsule 4 mg PO QID PRNQty: 100 thiamine HCl (vitamin B1) 100 mg PO DAILY Rx Instructions: [facility] psyllium husk (sweetleaf) 3.5 gram powder in packet 1 packet PO TID Label Comments: 05/26/21 [facility] hem/onc note atorvastatin 80 mg tablet 80 mg PO DAILY Qty: 90 3RF atenolol 100 mg tablet 100 mg PO DAILY Qty: 90 3RF cilostazol 50 mg tablet 50 mg PO BID Qty: 180 3RF Hold Instructions: restart 08/08/20 per [facility] d/c pantoprazole 40 mg tablet,delayed release (DR/EC) 40 mg PO DAILY Qty: 90 3RF bupropion HCl [Wellbutrin SR] 150 mg tablet sustained-release 12 hr 150 mg PO DAILY Label Comments: 12/24/21 from progress note quetiapine [Seroquel] 200 mg tablet 400 mg PO BID Label Comments: Rx Instructions: [facility]-- 400mg at hs. Discharge Instructions Additional Instructions: You have a large ulcer area just under your pupil of the right eye. I am very concerned about this and would like for you to go immediately to [facility] eye care. They are planning to see you this morning. They will be able to perform a more thorough exam and hopefully offer further explanation as to why this spontaneously occurred. We are sending home with erythromycin ointment. He should apply this into your right eye 4 times daily for the next 5 days or as directed by [facility]. If you develop any fever/chills, vision changes, headache, vomiting or other new/worsening symptoms seek care urgently once again. Referrals: [facility] [Outside] Christie Pratt NP [Primary Care Provider] - Discharge Data Discharge Date/Time-TO BE ENTERED AT DEPARTURE: 02/08/22 08:45 Medical Decision Making Patient is a pleasant 66-year-old gentleman with past medical history of sniffer hypertension, peripheral vascular disease, Crohn's disease, GERD, alcohol abuse, nicotine dependence, emphysema, CKD, presented with chief complaint of right thigh pain. Patient reports that at 3 AM he awoke with feeling foreign body in the eye. States that he has had similar presentation, several years since that occurred. Patient does not wear contacts. 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 She is she denies having any discomfort yesterday. He denies any headache nausea or vomiting. Denies any eye irritation yesterday or recently. Denies any trauma, toxin exposure, rubbing the eye, new exposures. tetanus within last 5 years. On exam, patient appears uncomfortable. His eye is injected. Pupils are equal, round, reactive. He had immediate resolution of pain with application of Tetracaine. Lids everted, no FB noted. He has fluoroscien uptake in large area inferior to charmaine pupil. Appears is most consistent with corneal ulcer. No other lesions, no punctate lesions, no dendridic lesions. Negative Ronda sign. Discussed with patient. Most concerned that he has such a notable area of uptake with no known cause. He does have history of ETOH abuse but denies any issue with this or potential exposure/trauma recently. No evidence of globe rupture, shingles, infectious etiology, ulceration through the full thickness of cornea. Called [facility]. They are able to see him this AM, advised to patient to go immediately to their office. Patient was brougth here by friend but will have him take them to their office. Sending home with erythromycin ointment but will hold off on applying as this may alter their eye exam. Return precautions discussed. All of his queestions and concerns were addressed, he is in agreement with this plan. HPI General Date/Time Provider Initiated Documentation: 02/08/22 07:12. Limitations to Documentation: no limitations. Information obtained by: patient and RN notes reviewed. History of Present Illness 66 year old M presents to the emergency department with the chief complaint of right eye pain, described as severe and similar to prior episodes, with intensity rated at 10. Quality is described as burning (FB sensation), and is localized to the eyes. Patient reports no radiation. Patient started experiencing this hour(s) and it has been constant. No relieving factors improve symptom(s), No exacerbating factors reported . Patient notes no other symptoms.. Patient did receive the following treatments prior to arrival, none Related Data Home Medications Medication Instructions Recorded Confirmed mirtazapine 45 mg disintegrating 45 mg PO HS 09/12/12 02/08/22 tablet (Remeron SolTab) aspirin 81 mg tablet,delayed 81 mg PO DAILY 10/17/12 02/08/22 release acetaminophen 325 mg tablet 650 mg PO Q4H PRN #30 tab-caps 08/23/16 02/08/22 loperamide 2 mg capsule 4 mg PO QID PRN #100 tab-caps 02/08/17 02/08/22 quetiapine 200 mg tablet (Seroquel) 400 mg PO BID 04/15/20 02/08/22 divalproex 125 mg capsule,delayed 500 mg PO BID 08/04/20 02/08/22 release sprinkle thiamine HCl (vitamin B1) 100 mg PO DAILY 11/28/20 02/08/22 nicotine 21 mg/24 hr daily 1 patch transdermal Q24H #28 ea 03/18/21 02/08/22 transdermal patch (Nicoderm CQ) Comvate Ostomy bags #1 ea 04/15/21 12/16/21 Ostomy barrier strips #1 ea 04/15/21 12/16/21 albuterol sulfate 90 mcg/actuation 1 - 2 puff inhalation Q4H PRN PRN 04/15/21 02/08/22 aerosol inhaler (Proventil HFA) shortness of breath or wheezing ##1 loratadine 10 mg tablet 10 mg PO DAILY #90 tab-caps 04/15/21 02/08/22 psyllium husk (sweetleaf) 3.5 gram 1 packet PO TID 05/27/21 02/08/22 oral powder packet multivitamin 1 tab PO DAILY 07/01/21 02/08/22 atenolol 100 mg tablet 100 mg PO DAILY #90 tab-caps 12/09/21 02/08/22 atorvastatin 80 mg tablet 80 mg PO DAILY #90 tabs 12/09/21 02/08/22 cilostazol 50 mg tablet 50 mg PO BID #180 tab-caps 12/09/21 02/08/22 pantoprazole 40 mg tablet,delayed 40 mg PO DAILY #90 tab-caps 12/09/21 02/08/22 release hemp oil 3,000 mg PO 12/16/21 12/16/21 pregabalin 75 mg capsule (Lyrica) 75 mg PO TID #84 caps 12/19/21 02/08/22 bupropion HCl 150 mg tablet,12 hr 150 mg PO DAILY 12/29/21 02/08/22 sustained-release (Wellbutrin SR) Previous Rx's Medication Instructions Recorded nicotine 21 mg/24 hr daily 1 patch transdermal Q24H #28 ea 03/18/21 transdermal patch (Nicoderm CQ) Comvatec Ostomy bags #1 ea 04/15/21 Ostomy barrier strips #1 ea 04/15/21 albuterol sulfate 90 mcg/actuation 1 - 2 puff inhalation Q4H PRN PRN 04/15/21 aerosol inhaler (Proventil HFA) shortness of breath or wheezing ##1 loratadine 10 mg tablet 10 mg PO DAILY #90 tab-caps 04/15/21 atenolol 100 mg tablet 100 mg PO DAILY #90 tab-caps 12/09/21 atorvastatin 80 mg tablet 80 mg PO DAILY #90 tabs 12/09/21 cilostazol 50 mg tablet 50 mg PO BID #180 tab-caps 12/09/21 pantoprazole 40 mg tablet,delayed 40 mg PO DAILY #90 tab-caps 12/09/21 release pregabalin 75 mg capsule (Lyrica) 75 mg PO TID #84 caps 12/19/21 Allergies Allergy/AdvReac Type Severity Reaction Status Date / Time infliximab [From Remicade] Allergy Unknown rash, Verified 12/16/21 10:53 flushing lamotrigine Allergy Unknown Rash Verified 12/16/21 10:53 hydromorphone HCl AdvReac Intermediate itching Verified 12/16/21 10:53 [From Dilaudid] General Stated Complaint: EyeProblem RANDALL: 4 Review of Systems Constitutional Constitutional: Reports as per HPI, Denies chills, Denies fatigue, Denies fever(s) and Denies headache(s) Eyes Eyes: Reports as per HPI, Denies blind spots, Denies blurry vision, Denies change in vision, Denies diplopia, Denies eye discharge, Reports irritation, Denies itchy eyes, Denies loss of vision, Reports eye pain, Reports requires corrective lenses (for reading) and Denies photophobia ENT Ears, Nose, Mouth, and Throat: Denies headache(s) Cardiovascular Cardiovascular: Reports as per HPI, Denies chest pain and Denies lightheadedness Respiratory Respiratory: Denies cough Integumentary/Breasts Skin/Breast: Reports as per HPI, Denies rash, Denies skin pain and Denies skin swelling Neurologic Neurologic: Denies headache(s), Denies loss of vision and Denies radicular pain Endocrine Endocrine: Denies fatigue Allergic/Immunologic Allergic/Immunologic: Denies itchy eyes PFSH All Active Problems (Updated 02/08/22 @ 08:38 by ANTONIETTA Palma) Corneal ulcer (Acute) Essential hypertension (Chronic 09/12/12) Peripheral vascular disease (Chronic 09/13/12) Crohn's disease (Acute 03/06/13) GERD (gastroesophageal reflux disease) (Acute) Bipolar disorder (Chronic) Nicotine dependence (Acute 09/12/12) Centrilobular emphysema (Acute 11/01/17) diagnosed by CT scan Impaired fasting glucose (Acute 04/23/15) Hyperlipidemia (Acute 09/13/12) Chronic kidney disease (CKD) (Chronic) Lumbar radiculopathy, chronic (Chronic) Disc degeneration at L4-5 and L5-S1. Marked facet hypertrophic degenerative changes of the lumbar spine. Probable significant disc herniation at L4-5. 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 (Acute 02/24/16) Thiamine deficiency neuropathy (Acute 02/24/16) Ulnar neuropathy at elbow of right upper extremity (Acute 12/25/14) Ulnar neuropathy at elbow of left upper extremity (Acute 12/25/14) Tubular adenoma of colon (Acute 05/01/15) [facility]/ - due for 5yr fu 04/2020 Rotator cuff syndrome of left shoulder (Acute 05/25/16) Hip pain, bilateral (Acute 06/22/16) Medical History (Updated 02/08/22 @ 08:38 by ANTONIETTA Palma) Acute kidney injury (07/31/16) Alcohol abuse Alcoholic peripheral neuropathy Brain mass meningioma Chest pain, non-cardiac (08/10/16) negative enzymes, normal dobutamine stress echo 08/2016 Cardiac catheterization 08/30/2016: Non-obstructive CAD Crohn disease Essential hypertension Hx of tonic-clonic seizures Hyperkalemia Ileostomy present 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 Report scanned PARTIAL ILEAL COLECTOMY AND DLI (08/10/16) S/P craniotomy [facility] 07/29/20 S/P endoscopy 04/06/21 Upper Endoscopy at [facility] biopsy's showed minor inflammation of esophagus, no evidence of Sepulveda's esophagus Stent placement (09/27/12) RIght external iliac and common iliac arteries Family History Mother Essential hypertension Diabetes Heart disease Stroke Social History (Updated 09/23/21 @ 09:43 by Jigna Deleon LPN) Smoking/Tobacco Use Status: Current every day Tobacco Type: cigarettes Tobacco: How many years used: 55 Quit status: considering quitting Counseling given: other (discussed options, and items to help him, and pt states with stress, he is not sure if he can quit) Smoking risk assessment performed?: Yes Alcohol Intake: former Drug use: Occasionally Substance use type: marijuana Details: only 2 beers since mid july 2020 Household members: none Housing: apartment Number of Children: 2 Communication Needs: None 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, 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 Pets and animals: Yes Pets and animals: cat(s) Current gender identity: male What is your relationship status?: How often do you talk on the phone with friends or family?: twice per week Panel score (0-1 are the most socially isolated patients): 0 What type of physical activity do you participate in: walking Seatbelt use: always Drive intox or ride w/intox 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 Water heater temp set <120 deg: Yes Working smoke detector in home: Yes Fire extinguisher in home: Yes Carbon monox detector in home: Yes Do you feel safe at home: Yes Do you feel safe in your relationship?: Yes Exam Const General: cooperative, healthy appearing, uncomfortable, no acute distress, well developed, well groomed and anxious Nutritional Appearance: average body habitus and well nourished Orientation: alert, awake and oriented x3 HENMT Head: normal to inspection, normocephalic and atraumatic Ears: hearing grossly normal bilaterally and external ears normal General nose exam: external nose normal and nares normal Face and sinus: normal facial exam and face symmetric Mouth: oral mucosae normal, lip normal and moist mucous membranes Eyes Visual Narayan: normal visual narayan by confrontation Alignment and Position: alignment normal and position normal Periorbital: periorbital findings normal Eyelids: eyelids normal Conjunctivae: conjunctival abnormality right conjunctival injection diffuse Sclera: sclerae normal Cornea: corneas abnormal on the right fluorescein used and ulercation and fluorescein used Pupils: PERRL EOM: EOM intact bilaterally Eyes/upper lids images: 1. Area of fluorscein uptake. No Ronda sign. No deep penetration. Does not cover pupils with light in it but likely would obscure vision if light not directly in the eye. No dendridic lesions, punctate lesions or other areas of uptake. Resp Effort & Inspection: normal respiratory effort, able to speak in complete sentences and no respiratory distress Skin General skin exam: no rashes or lesions noted Neuro General: patient alert, patient awake and patient oriented x3 Cranial Nerves: CN's II-XI intact bilaterally Cognition: normal cognition Speech: speech normal Gait: normal gait Psych Appearance: grossly normal and well kempt Mental Status: mental status grossly normal Speech and Movement: speech and movement normal Course Vital Signs Vital signs: Vital Signs Temperature 37.1 C 02/08/22 07:14 Pulse 86 02/08/22 07:14 Respiratory Rate 16 02/08/22 07:14 Blood Pressure 160/83 H 02/08/22 07:14 Pulse Oximetry 98 02/08/22 07:14 Temperature 37.1 C 02/08/22 07:14 Temperature Source Temporal Artery Scan 02/08/22 07:14 Pulse 86 02/08/22 07:14 Respiratory Rate 16 02/08/22 07:14 Respiratory Effort Non-Labored 02/08/22 07:18 Blood Pressure 160/83 H 02/08/22 07:14 Blood Pressure Position Sitting 02/08/22 07:14 Pulse Oximetry 98 02/08/22 07:14 Oxygen Delivery Method Room Air 02/08/22 07:14 Oxygen Flow Rate 0 02/08/22 07:14 Pain Level 10 02/08/22 07:14 PAWSS Have you Been Recently Intoxicated or Drunk Within the Last 30 days?: No Have you Ever Experienced Previous Episodes of Alcohol Withdrawal?: No Have you ever Experienced Withdrawal Seizures?: No Have you ever Experienced Delirium Tremens(DT)s?: No Have you ever undergone Alcohol Rehabilitation Treatment (i.e, inpt ot outpatient treatment programs)?: No Have you ever Experienced Blackouts?: No Have you ever Combined Alcohol with other Downers within the last 90 days?: No Have you ever Combined Alcohol with any other Substance of Abuse during the last 90 days?: No Result: 0
[2022-02-08] MEDS: Fluorescein STRIPS 100/BOX 1 MG OP (08:31)
[2022-02-08] MEDS: Tetracaine 0.5% 4 ML BTL OP (08:31)
[2022-02-08] MEDS: Erythromycin Ophth Oint 3.5 GM TUBE OD (08:45)
[2022-02-08 08:47] VITALS: BP 160/83; PULSE 86; RESP 16; TEMP 37.1; O2SAT 98
== END 2022-02-08 08:45 | disposition home or self-care (01) ==
PROVIDERS: Emergency Provider Physician Assistant; PCP Nurse Practitioner
DX: H16.001 Unspecified corneal ulcer, right eye (principal)
CPT/HCPCS: 99283

== ENCOUNTER → 2022-03-18 01:47 | Outpatient (CLI) | payer OTHER, MEDICAID, SELFPAY ==
--- NOTE | 2022-03-18 07:45 | DI.US_ITS ---
Exam(s) US AAA SCREENING EXAM: US AAA SCREENING CLINICAL HISTORY: SCREENING FOR AAA,Z13.6 COMPARISON: No exams were available for comparison FINDINGS: Abdominal Aorta: Proximal: 2.1 x 2.0 cm Mid: 1.6 x 2.1 cm Distal: 1.6 x 1.9 cm Iliac's: Right: 0.7 x 1.0 cm Left: 1.0 x 1.1 cm IMPRESSION: No evidence of abdominal aortic aneurysm. DATA REPOSITORY:
== END ==
PROVIDERS: PCP Nurse Practitioner; Visit Provider Nurse Practitioner
DX: Z13.6 Encounter for screening for cardiovascular disorders (principal)
CPT/HCPCS: 76706

== ENCOUNTER 2022-03-18 02:59 | Outpatient (CLI) | payer OTHER, MEDICAID, SELFPAY ==
[2022-03-18 10:37] LABS: HCT 37.7 % (40.0-50.0); HGB 12.4 g/dL (13.5-17.5); MCH 30.2 pg (27.0-33.0); MCHC 32.9 % (32.0-36.0); MCV 92 fL (80-95); MPV 12.5 fL (8.0-11.0); Platelet Count 255 10^3/uL (130-400); RBC 4.11 10^6/uL (4.36-5.78); RDW 14.3 % (11.8-14.1); RDW-SD 47.9 fL; WBC 6.79 10^3/uL (4.4-10.8)
[2022-03-18 11:33] LABS: ALT 47 U/L (16-63); AST 36 U/L (15-37); Alkaline Phosphatase 98 U/L (46-116); Anion Gap 9.8 mmol/L (3-11); BUN 12 mg/dL (7-18); Bilirubin, Total 0.4 mg/dL (0.2-1.0); CO2 28.2 mmol/L (21.0-32.0); CREATININE 1.3 mg/dL (0.70-1.30); Calcium 8.4 mg/dL (8.5-10.1); Calculated LDL 47 mg/dL (<100); Chloride 107 mmol/L (98-107); Cholesterol 133 mg/dL (<200); Estimated GFR 60.21 (mL/min/1.73m2); Glucose 81 mg/dL (74-106); HDL Cholesterol 70 mg/dL (40-60); Potassium 3.5 mmol/L (3.5-5.1); Sodium 145 mmol/L (136-145); Total Protein 7.6 g/dL (6.4-8.2); Triglyceride 84 mg/dL (<150)
== END 2022-03-18 03:00 | disposition home or self-care (01) ==
LOC: LBO 02:59
PROVIDERS: PCP Nurse Practitioner; Visit Provider Nurse Practitioner
DX: E78.5 Hyperlipidemia, unspecified (principal); I10 Essential (primary) hypertension; N18.9 Chronic kidney disease, unspecified; F10.10 Alcohol abuse, uncomplicated
CPT/HCPCS: 36415; 80053; 80061; 85027

== ENCOUNTER → 2022-05-13 01:50 | Outpatient (CLI) | payer OTHER, MEDICAID, SELFPAY ==
--- NOTE | 2022-05-13 14:30 | DI.MRI_ITS ---
Exam(s) MR BRAIN WO/W EXAM: MR BRAIN WO/W CLINICAL HISTORY: MENINGIOMA, D32.9, POST GTR TECHNIQUE: Multiplanar multisequence MRI of the brain was performed. Post contrast imaging was also obtained, with T1 weighted axial and coronal imaging and multi planar T1 MP rage imaging. COMPARISON: MR MR BRAIN WO/W from 05/20/2021 FINDINGS: Patient has reportedly had prior resection of a frontal meningioma. The current examination is comp ared with prior examination of May 20, 2021 period. Typical periventricular white matter signal changes are again noted and there is mild generalized cer ebral atrophy. The frontal encephalomalacia and associated T2 signal abnormalities noted on the prio r examination are unchanged on today's examination. The orbital and temporal bone structures appear intact as does the pituitary. Diffusion weighted imaging shows no evidence of infarction. Susceptibility weighted imaging shows no evidence of intracranial hemorrhage. There is normal flow void in the [place] vasculature. There is no evidence of a mass lesion or enhancing lesion in the brain. IMPRESSION: Stable postoperative appearance following prior frontal meningioma resection . DATA REPOSITORY:
[2022-05-13] MEDS: Normal Saline Flush 10 ML SYR IVP (14:43)
== END ==
PROVIDERS: PCP Nurse Practitioner; Visit Provider Internal Medicine
DX: D32.9 Benign neoplasm of meninges, unspecified (principal); Z48.3 Aftercare following surgery for neoplasm
CPT/HCPCS: 70553

== ENCOUNTER 2022-09-30 10:58 | Outpatient (REF) | payer OTHER, MEDICAID, SELFPAY ==
[2022-09-30 16:18] LABS: Abs Immature Grans 0.01 10^3/uL (0.0-0.06); Absolute Basophil Count 0.02 10^3/uL (0.0-0.2); Absolute Eosinophil Count 0.07 10^3/uL (0.0-0.7); Absolute Lymphocyte Count 1.79 10^3/uL (1.2-3.4); Absolute Monocyte Count 0.66 10^3/uL (0.1-0.8); Absolute Neutrophil Count 2.24 10^3/uL (1.2-6.7); Basophils % 0.4; Eosinophils % 1.5; HCT 36.9 % (40.0-50.0); HGB 11.7 g/dL (13.5-17.5); Immature Grans % 0.2; Lymphocytes % 37.4; MCH 30.2 pg (27.0-33.0); MCHC 31.7 % (32.0-36.0); MCV 95 fL (80-95); Monocytes % 13.8; Neutrophils % 46.7; Platelet Count 234 10^3/uL (130-400); RBC 3.88 10^6/uL (4.36-5.78); RDW 13.4 % (11.8-14.1); RDW-SD 46.5 fL; WBC 4.79 10^3/uL (4.4-10.8)
[2022-09-30 16:55] LABS: ALT 16 U/L (16-63); AST 23 U/L (15-37); Albumin 3.2 g/dL (3.4-5.0); Alkaline Phosphatase 81 U/L (46-116); Anion Gap 5.1 mmol/L (3-11); BUN 22 mg/dL (7-18); Bilirubin, Total 0.3 mg/dL (0.2-1.0); CO2 27.9 mmol/L (21.0-32.0); CREATININE 1.6 mg/dL (0.70-1.30); Calcium 8.8 mg/dL (8.5-10.1); Chloride 105 mmol/L (98-107); Estimated GFR 46.64 (mL/min/1.73m2); Glucose 98 mg/dL (74-106); Magnesium 1.8 mg/dL (1.8-2.4); Potassium 5.2 mmol/L (3.5-5.1); Sodium 138 mmol/L (136-145); TSH (W/Ref FT4) 1.94 uIU/mL (0.36-3.74); Total Protein 7.5 g/dL (6.4-8.2)
== END 2022-09-30 10:59 | disposition home or self-care (01) ==
LOC: LBN 10:58
PROVIDERS: PCP Nurse Practitioner; Visit Provider Nurse Practitioner
DX: I10 Essential (primary) hypertension
CPT/HCPCS: 80053; 83735; 84443; 85025

== ENCOUNTER 2023-01-28 00:15 | Outpatient (CLI) | payer OTHER, MEDICAID, SELFPAY ==
[2023-01-28] MEDS: Barium Sulfate 2% W/V-Berry Smoothie 450 ML BTL 900 ML PO (11:51)
[2023-01-28 12:14] LABS: ESR 20 mm/hr (0-20)
[2023-01-28 12:17] LABS: Abs Immature Grans 0.03 10^3/uL (0.0-0.06); Absolute Basophil Count 0.05 10^3/uL (0.0-0.2); Absolute Eosinophil Count 0.05 10^3/uL (0.0-0.7); Absolute Lymphocyte Count 2.15 10^3/uL (1.2-3.4); Absolute Monocyte Count 0.48 10^3/uL (0.1-0.8); Absolute Neutrophil Count 3.48 10^3/uL (1.2-6.7); Basophils % 0.8; Eosinophils % 0.8; HCT 38.2 % (40.0-50.0); HGB 12.4 g/dL (13.5-17.5); Immature Grans % 0.5; Lymphocytes % 34.5; MCH 30.5 pg (27.0-33.0); MCHC 32.5 % (32.0-36.0); MCV 94 fL (80-95); Monocytes % 7.7; Neutrophils % 55.7; RBC 4.06 10^6/uL (4.36-5.78); RDW 13.9 % (11.8-14.1); RDW-SD 47.5 fL; WBC 6.24 10^3/uL (4.4-10.8)
[2023-01-28 12:18] LABS: Hemoglobin A1C 5.7 % (<5.7)
[2023-01-28 12:32] LABS: Diff Comment PLT Morph Reviewed; Platelet Count 224 10^3/uL (130-400); RBC Morphology Normal
[2023-01-28 12:49] LABS: ALT 24 U/L (16-63); AST 27 U/L (15-37); Albumin 3.7 g/dL (3.4-5.0); Alkaline Phosphatase 76 U/L (46-116); Anion Gap 7.9 mmol/L (3-11); BUN 37 mg/dL (7-18); Bilirubin, Total 0.2 mg/dL (0.2-1.0); CO2 29.1 mmol/L (21.0-32.0); Calcium 9.4 mg/dL (8.5-10.1); Chloride 104 mmol/L (98-107); Estimated GFR 35.68 (mL/min/1.73m2); Ferritin 226 ng/mL (26-388); Glucose 90 mg/dL (74-106); Potassium 4.9 mmol/L (3.5-5.1); Sodium 141 mmol/L (136-145); TSH (W/Ref FT4) 1.97 uIU/mL (0.36-3.74); Total Protein 8.3 g/dL (6.4-8.2); Vitamin B12 706 pg/mL (193-986)
--- NOTE | 2023-01-28 13:41 | DI.CT_ITS ---
Exam(s) CT CHEST/ABD/PEL W EXAM: CT CHEST/ABD/PEL W CLINICAL HISTORY: unexplained weight loss,SMOKER,ALCOHOL ABUSE,R63.4,F17.200. TECHNIQUE: Imaging Protocol: Axial computed tomography images with coronal and sagittal reformatted images were created and reviewed CONTRAST MATERIAL: Intravenous: Omnipaque 350 Contrast volume:100 ml Oral: yes COMPARISON: CT ABD PELVIS WITH CONTRAST from 08/05/[address] CHEST LUNG CANCER SCREEN from 03/18/[address] CHEST LUNG CANCER SCREEN from 03/24/[address] CHEST WO from 10/19/2021 FINDINGS: CHEST: Tracheobronchial tree: Patent where visualized. Pulmonary parenchyma: Mild patchy infiltrate seen in right upper lobe. No consolidation or dominant measurable mass. Pleura: No effusion or pneumothorax. Lymph nodes: Within normal limits. Aorta: Thoracic portion non-dilated. Mild atherosclerotic changes. Heart: Normal size. Mild coronary artery calcifications. Bones: Unremarkable for age. No lytic or blastic lesions.No compression fractures. ABDOMEN: Liver: Normal density. No measurable mass. Gallbladder and biliary tract: No radiodense calculus or dilation. Pancreas: Normal density, no abnormal calcifications or inflammatory process. Spleen: Normal. Kidneys: Normal size, contour and axis. No radiodense stones or obstructive uropathy. No suspicious m asses seen. Adrenal glands: Stable appearance of prominence of the left adrenal gland compared with 2010. Aorta: Abdominal portion non-dilated. Atherosclerotic changes. Right iliac artery stent, patent. Lymph nodes: Within normal limits. Soft tissues: Ostomy to the left of the umbilicus with parastomal hernia containing loops of small kelsey wel. No evidence of obstruction. Contrast seen in ostomy bag. PELVIS: Bladder: Symmetric distention, no gross wall thickening. Bowel: No obstruction or bowel wall thickening. Large quantity of stool noted from the ascending th rough splenic flexure. Peritoneal cavity: No ascites, collection or mesenteric inflammatory response. Bones: Unremarkable for age.. Reproductive organs: Prostate mildly enlarged. IMPRESSION: Chest: Severe emphysematous changes. No evidence of mass. Patchy infiltrate in the right upper lobe , infectious versus inflammatory. Abdomen pelvis: Left-sided ostomy with parastomal hernia but no evidence of obstruction. Large quant ity of stool. No evidence of mass. RADIATION DOSE DELIVERED: Total DLP DATA REPOSITORY: All CT scans at this facility are submitted to the National Radiology Data Registry (NRDR) Dose Index Registry (DIR) with the [employer] (ACR). RADIATION OPTIMIZATION: All CT scans at this facility use at least one of these dose optimization te chniques: automated exposure control; mA and/or kV adjustment per patient size (includes targeted exa ms where dose is matched to clinical indication); or iterative reconstruction.
[2023-01-28] MEDS: Omnipaque 350 MG/ML 500 ML BTL-Imaging package 100 ML IJ (13:44)
[2023-01-31 10:18] LABS: Hepatitis C Ab w Rflx HCV PCR Negative (Negative)
[2023-01-31 12:29] LABS: HIV-1/2 Ag & Ab Screen Negative (Negative)
== END 2023-01-28 00:35 ==
LOC: DI 00:17
PROVIDERS: PCP Nurse Practitioner; Visit Provider Nurse Practitioner
DX: K50.90 Crohn's disease, unspecified, without complications (principal); R63.4 Abnormal weight loss; J45.909 Unspecified asthma, uncomplicated; R73.01 Impaired fasting glucose; I10 Essential (primary) hypertension; F17.210 Nicotine dependence, cigarettes, uncomplicated; K43.5 Parastomal hernia without obstruction or gangrene; Z93.3 Colostomy status; R91.8 Other nonspecific abnormal finding of lung field; J43.9 Emphysema, unspecified
CPT/HCPCS: 36415; 74177; 80053; 85652; 86803; 87389; 71260; 82607; 82728; 83036; 84443; 85025

== ENCOUNTER 2023-03-24 02:32 | Outpatient (CLI) | payer OTHER, MEDICAID, SELFPAY ==
[2023-03-24] MEDS: Albuterol HFA 18 GM 200 PUFF INH IH (11:02)
[2023-03-24] MEDS: Inhaler, Assist Device 1 EACH MC (11:02)
--- NOTE | 2023-03-29 09:11 | W.PFT ---
Date of service: 03/24/23 Time of Service: 09:56 Pulmonary Function Test Result Indications: COPD Interpretation Spirometry: There is mild to moderate airflow limitation. No significant bronchodilator response. Lung Volumes: There is air trapping Diffusion Capacity: Decreased diffusion Airway Pressure: Normal airways resistance Impression There is mild to moderate airflow obstruction with a reduced diffusion. This can be seen in COPD with emphysema. Clinical Correlation therefore is recommended.
== END 2023-03-24 02:33 | disposition home or self-care (01) ==
LOC: RT 02:33
PROVIDERS: PCP Nurse Practitioner; Visit Provider Physician Assistant Surgical
DX: J44.9 Chronic obstructive pulmonary disease, unspecified (principal)
CPT/HCPCS: 94060; 94726; 94729

== ENCOUNTER → 2023-06-14 15:05 | Outpatient (BNVA) | payer OTHER, MEDICAID, SELFPAY | PROVIDERS: PCP Nurse Practitioner; Referring Provider Nurse Practitioner; Visit Provider Student in an Organized Health Care Education/Training Program | DX: J43.2 Centrilobular emphysema (principal); Z79.899 Other long term (current) drug therapy; F17.210 Nicotine dependence, cigarettes, uncomplicated; R91.8 Other nonspecific abnormal finding of lung field | CPT/HCPCS: 99214 ==

== ENCOUNTER → 2023-06-30 01:55 | Outpatient (CLI) | payer OTHER, MEDICAID, SELFPAY ==
--- NOTE | 2023-06-30 08:00 | DI.CT_ITS ---
Exam(s) CT CHEST WO EXAM: CT CHEST WO CLINICAL HISTORY: f/u endobronchial nodule seen on prior CT,R91.8. TECHNIQUE: Imaging protocol: Axial computed tomography images were obtained and coronal and sagittal reformatted images were created and reviewed. COMPARISON: CT CT CHEST WO from 10/19/[address] CHEST/ABD/PEL W from 01/28/2023 FINDINGS: Tracheobronchial tree: The previously noted nodular density on the anterior aspect of the distal trac hea (series 10, image 181 on 01/28/2023.) is not visualized on the current examination. There are sm all layering secretions seen in the right mainstem bronchus. Pulmonary parenchyma: No consolidation or dominant measurable mass. Moderate centrilobular emphysemat ous changes are present. There is a small nodular infiltrate seen in the periphery of the right uppe r lobe. There is tiny stable nodules in the periphery of the right lower lobe. (Series 3, image 526 and image 569). Small nonspecific ground-glass infiltrates are seen in the medial aspect of the rig ht middle lobe and right lower lobe.. Mediastinum and Annalise: No dominant adenopathy or fluid collection. The esophagus is unremarkable. Thyroid gland: Unremarkable. Pleura: No effusion or pneumothorax. Heart: The heart is not dilated. Coronary artery calcifications are present. No pericardial effusion . Aorta: Thoracic aorta non-dilated. Atherosclerosis. Upper abdomen: There is stable thickening of the limbs of the left adrenal gland. Lymph nodes: Within normal limits. Soft tissues: Unremarkable. Bones:Within normal limits for the patient's age. IMPRESSION: 1. The previously seen nodule in the distal trachea is not seen on the current examination. 2. Moderate centrilobular emphysema. 3. Stable tiny nodules in the right lower lobe. In low risk patients, no follow-up is warranted. In high risk patients, (history of smoking or other risk factors), 12 month follow-up may be obtained. (Ijeoma et al, 2017). 4. Nonspecific nodular infiltrate in the periphery of the right upper lobe and small nonspecific grou nd-glass infiltrates in the right middle and right lower lobes. An infectious etiology should be con sidered. Other differential considerations include small airways disease, atelectasis and edema. RADIATION DOSE DELIVERED: Total DLP Total DLP DATA REPOSITORY: All CT scans at this facility are submitted to the National Radiology Data Registry (NRDR) Dose Index Registry (DIR) with the [employer] (ACR). RADIATION OPTIMIZATION: All CT scans at this facility use at least one of these dose optimization te chniques: automated exposure control; mA and/or kV adjustment per patient size (includes targeted exa ms where dose is matched to clinical indication); or iterative reconstruction.
== END ==
PROVIDERS: PCP Nurse Practitioner; Visit Provider Student in an Organized Health Care Education/Training Program
DX: R91.8 Other nonspecific abnormal finding of lung field (principal); J43.2 Centrilobular emphysema
CPT/HCPCS: 71250

== ENCOUNTER → 2023-07-15 00:45 | Outpatient (CLI) | payer OTHER, MEDICAID, SELFPAY ==
[2023-07-15 14:16] LABS: CREATININE 1.2 mg/dL (0.70-1.30); Estimated GFR 65.46 (mL/min/1.73m2)
--- NOTE | 2023-07-15 14:45 | DI.MRI_ITS ---
Exam(s) MR BRAIN WO EXAM: MR BRAIN WO CLINICAL HISTORY: MENINGIOMA D32.9 SEIZURE R56.9. TECHNIQUE: Multiplanar multisequence MRI of the brain was performed. CONTRAST MATERIAL: None given. No IV access was able to be obtained. COMPARISON: CT CT HEAD WO from 07/27/2020 MR MR BRAIN WO/W from 05/13/2022 FINDINGS: VENTRICLES AND EXTRA AXIAL SPACES: Normal in size and morphology for the patient's age. HEMORRHAGE: None. CEREBRAL PARENCHYMA: Areas of encephalomalacia in the bilateral inferior medial frontal lobes, consis tent with area of post surgical resection. Stable high signal in the adjacent brain. No focus of re stricted diffusion to suggest acute infarct. No evidence of new mass. No temporal lobe abnormality or asymmetry. MIDLINE SHIFT: None. BRAINSTEM/CEREBELLUM: Normal. CALVARIUM: Anterior craniotomy. ENHANCEMENT: No suspicious enhancement identified. VISUALIZED PARANASAL SINUSES/MASTOIDS: Clear. Orbits: Unremarkable. Pituitary: Normal. Vasculature: Normal flow voids. IMPRESSION: Area of encephalomalacia in the anterior inferior frontal lobes. No evidence of recurrence mass or n ew other acute abnormality. DATA REPOSITORY:
== END ==
PROVIDERS: PCP Nurse Practitioner; Visit Provider Internal Medicine
DX: D32.9 Benign neoplasm of meninges, unspecified (principal); R56.9 Unspecified convulsions
CPT/HCPCS: 70551; 82565

== ENCOUNTER 2023-08-03 10:18 | Outpatient (CLI) | payer OTHER, MEDICAID, SELFPAY ==
--- NOTE | 2023-08-03 10:15 | RT.EKG_ITS ---
APPROVED REPORT Exam: Resting ECG Reason for Exam: chest discomfort Patient Location: O HR:90 bpm ECG Measurements Heart Rate 90 AXIS MA 140 P 60 QRSd 76 QRS 18 QT 318 T 102 QTc 389 Conclusion Sinus rhythm...normal P axis, V-rate 50- 99 Probable left atrial enlargement...P >50mS, <-0.10mV V1 Low voltage, extremity leads...all extremity leads <0.5mV Nonspecific T abnormalities, lateral leads...T <-0.10mV, I aVL V5 V6 I have reviewed and interpreted ECG and agree with software generated interpretation.
== END 2023-08-03 10:19 | disposition home or self-care (01) ==
LOC: DI.KIM 10:19
PROVIDERS: PCP Nurse Practitioner; Visit Provider Nurse Practitioner
DX: I10 Essential (primary) hypertension (principal); J44.9 Chronic obstructive pulmonary disease, unspecified; R07.9 Chest pain, unspecified
CPT/HCPCS: 93010

== ENCOUNTER 2023-08-19 06:20 | Day surgery (SDC) | payer OTHER, MEDICAID, SELFPAY ==
[2023-08-19 06:30] VITALS: BP 95/74; PULSE 95; RESP 20; TEMP 36.5; O2SAT 100
--- NOTE | 2023-08-19 07:10 | W.ANESPRE ---
General Info Date of Service Date Performed: 08/19/23 Height: 5 ft 10 in Weight: 61.8 kg Body Mass Index (BMI): 19.5 Surgical Procedure: Operation Date: 08/19/23 07:40 Proposed Procedure Side Surgeon p Cataract Extraction with IOL Implant Left Vitaliy Maciel MD Meds Allergies and Home Medications Allergies Allergy/AdvReac Type Severity Reaction Status Date / Time infliximab [From Remicade] Allergy Unknown rash, Verified 08/19/23 06:49 flushing lamotrigine Allergy Unknown Rash Verified 08/19/23 06:49 varenicline AdvReac Severe seizure Verified 08/19/23 06:49 like activity hydromorphone HCl AdvReac Intermediate itching Verified 08/19/23 06:49 [From Dilaudid] Home Medication Medication Instructions Recorded mirtazapine 45 mg disintegrating 45 mg PO HS 09/12/12 tablet (Remeron SolTab) acetaminophen 325 mg tablet 650 mg PO Q4H PRN #30 tab-caps 08/23/16 loperamide 2 mg capsule 4 mg PO QID PRN #100 tab-caps 02/08/17 divalproex 125 mg capsule,delayed 500 mg PO BID 08/04/20 release sprinkle Comvatec Ostomy bags #1 ea 04/15/21 albuterol sulfate 90 mcg/actuation 1 - 2 puff inhalation Q4H PRN PRN 04/15/21 aerosol inhaler (Proventil HFA) shortness of breath or wheezing ##1 psyllium husk (sweetleaf) 3.5 gram 1 packet PO TID 05/27/21 oral powder packet multivitamin 1 tab PO DAILY 07/01/21 bupropion HCl 150 mg tablet,12 hr 150 mg PO DAILY 12/29/21 sustained-release (Wellbutrin SR) folic acid 1 mg tablet 1 mg PO DAILY #90 tabs 09/30/22 thiamine mononitrate (vit B1) 100 100 mg PO DAILY #90 tabs 09/30/22 mg tablet atenolol 100 mg tablet 50 mg (1/2 x 100 mg) PO DAILY #90 12/23/22 tab-caps atorvastatin 80 mg tablet 80 mg PO DAILY #90 tabs 02/10/23 Ostomy Bag #30 ea 02/23/23 Ostomy Wafer #30 ea 02/23/23 nicotine 21 mg/24 hr daily 1 patch transdermal DAILY #28 ea 02/23/23 transdermal patch pantoprazole 40 mg tablet,delayed 40 mg PO DAILY #90 tab-caps 02/28/23 release cilostazol 50 mg tablet 50 mg PO BID #180 tab-caps 03/15/23 umeclidinium 62.5 mcg-vilanterol 1 inh inhalation DAILY #60 ea 03/16/23 25 mcg/actuation powdr for inhalation (Anoro Ellipta) Ostomy barrier strips #1 ea 05/30/23 alprazolam 0.25 mg tablet 0.25 mg PO .COMPLEX PRN MRI 07/05/23 Claustrophobia #3 tab-caps loratadine 10 mg tablet 10 mg PO DAILY #90 tab-caps 07/12/23 pregabalin 100 mg capsule 100 mg PO TID #90 caps 08/01/23 quetiapine 300 mg tablet (Seroquel) 300 mg PO QHS 08/03/23 quetiapine 50 mg tablet (Seroquel) 50 mg PO DAILY 08/03/23 Brava coloplast barrier strips Y #30 multiple units 08/10/23 Shaped cyclobenzaprine 5 mg tablet 5 mg PO TID PRN muscle spasm #21 08/10/23 tabs Current Visit Medications: Current Medications Generic Name Dose Route Start Last Admin Trade Name Freq PRN Reason Stop Dose Admin Acetaminophen 1,000 mg 08/19/23 06:00 Acetaminophen 500 Mg Tab PO 09/18/23 05:59 Q4H PRN PRN Balanced Salt Solution 500 ml 08/19/23 06:00 Balanced Salt Soln.-Plus 500 Ml Bag OP 09/18/23 05:59 DIRECTED THEA Miscellaneous Medication 0 ml 08/19/23 06:00 Prednisolone 1%, Moxifloxacin 0.5%, Bromfenac 0.09% 5ml Btl OS 09/18/23 05:59 DIRECTED THEA Miscellaneous Medication 0 ml 08/19/23 06:00 08/19/23 06:57 Tropicam./Phenyleph. 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, T45.2X5A Ulnar neuropathy at elbow of right upper extremity 12/25/14 G56.21 Ulnar neuropathy at elbow of left upper extremity 12/25/14 G56.22 Tubular adenoma of colon 05/01/15 D12.6 Thiamine deficiency neuropathy 02/24/16 E51.11 Rotator cuff syndrome of left shoulder 05/25/16 M75.102 Peripheral vascular disease 09/13/12 I73.9 Peripheral neuropathy 12/25/14 G62.9 Nicotine dependence 09/12/12 F17.200 Impaired fasting glucose 04/23/15 R73.01 Hyperlipidemia 09/13/12 E78.5 Hip pain, bilateral 06/22/16 M25.551, M25.552 Essential hypertension 09/12/12 I10 Crohn's disease 09/13/12 K50.90 Centrilobular emphysema 11/01/17 J43.2 Alcoholic peripheral neuropathy 02/24/16 G62.1 Bipolar disorder F31.9 GERD (gastroesophageal reflux disease) K21.9 Medical History Medical History Pulmonary emphysema Tobacco abuse Hyperkalemia Hx of tonic-clonic seizures 2020 last seizure 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; resected 07/29/20, annual MRI 07/26/23 F/U Hem/Onc for surveillance of brain cancer Brain mass meningioma Acute kidney injury (07/31/16) Chest pain, non-cardiac (08/10/16) negative enzymes, normal dobutamine stress echo 08/2016 Cardiac catheterization 08/30/2016: Non-obstructive CAD Tubular adenoma of colon PVD (peripheral vascular disease) Tobacco abuse Crohn disease Essential hypertension Alcohol abuse Ileostomy present Alcoholic peripheral neuropathy Surgical History Surgical History S/P ileostomy in situ S/P endoscopy 04/06/21 [place] Endoscopy at [facility] [place] biopsy's showed minor inflammation of esophagus, no evidence of Sepulveda's esophagus S/P craniotomy [facility] 07/29/20 coronary angiography (08/30/16) L heart catheterization [facility] Stent placement (09/27/12) RIght external iliac and common iliac arteries PARTIAL ILEAL COLECTOMY AND DLI (08/10/16) Ileoscopy (07/13/17) 06/16/[address] Duran Haskins, recommendation to repeat in 1 year. Report scanned Colonoscopy - IV Sedation (04/29/15) 3mm polyp in transverse colon Angioplasty (09/27/12) Right external iliac and common iliac arteries Tobacco Smoking/Tobacco Use Status: Current every day Tobacco Type: cigarettes Smoking packs per day: 1 Smoking cigarettes per day: 20.0 Counseling given: other (discussed options, and items to help him, and pt states with stress, he is not sure if he can quit) Alcohol Alcohol Intake: former Substance Use Substance use: Daily Substance use type: marijuana Vital Signs and Lab Results Vital Signs Most Recent Vital Signs in EMR: Most Recent Vital Signs Temp Pulse Resp BP Pulse Ox 36.5 C 95 H 20 95/74 L 100 08/19/23 06:30 08/19/23 06:30 08/19/23 06:30 08/19/23 06:30 08/19/23 06:30 Lab Results Blood Type / Crossmatch: No Data to Display Complete Blood Count: No Data to Display Complete Metabolic Panel: No Data to Display Liver Function Panel: No Data to Display Coagulation Panel: No Data to Display Cardiac Panel: No Data to Display Arterial Blood Gas: No Data to Display Venous Blood Gas: No Data to Display Pancreas Panel: No Data to Display Thyroid Panel: No Data to Display Infectious Disease: No Data to Display Blood Cultures: No Data to Display Toxicology Panel: No Data to Display Imaging and Studies Imaging and Studies Study information below may be from another EMR and interpreted by another provider. Please see original notes in EMR for more complete details. EKG Summary: DATE/TIME OF SERVICE: 08/03/23 1028 : 1955 PERFORMING LOCATION: [facility] APPROVED REPORT Exam: Resting ECG Reason for Exam: chest discomfort Patient Location: O HR:90 bpm ECG Measurements Heart Rate 90 AXIS NM 140 P 60 QRSd 76 QRS 18 QT 318 T102 QTc 389 Conclusion Sinus rhythm...normal P axis, V-rate 50- 99 Probable left atrial enlargement...P >50mS, <-0.10mV V1 Low voltage, extremity leads...all extremity leads <0.5mV Nonspecific T abnormalities, lateral leads...T <-0.10mV, I aVL V5 V6 I have reviewed and interpreted ECG and agree with software generated interpretation. Pulmonary Function Summary: Date of service: 03/24/23 Time of Service: 09:56 Pulmonary Function Test Result Indications: COPD Interpretation Spirometry: There is mild to moderate airflow limitation. No significant bronchodilator response. Lung Volumes: There is air trapping Diffusion Capacity: Decreased diffusion Airway Pressure: Normal airways resistance Impression There is mild to moderate airflow obstruction with a reduced diffusion. This can be seen in COPD with emphysema. Clinical Correlation therefore is recommended. Anesthesia Assessment and Plan Anesthesia History Personal History: No History of Anesthesia Complications Family History: No Family History of Anesthesia Complications Exercise Tolerance Exercise Tolerance: Metabolic Equivalents>4 Pertinent Negatives Pertinent Negatives: No Symptoms of GERD and No Major Cardiovascular Symptoms or Complaints Cardiac & Pulmonary Exam Cardiac Exam: Normal S1/S2 Heart Sounds Pulmonary Exam: Clear Bilateral Breath Sounds Implantable Cardiac Device Does patient have a Pacemaker or an ICD?: No Airway Exam Known Difficult Airway: No Mallampati Class: 2 Mouth Opening: Normal (> 3cm) Thyromental Distance: Greater than 3 cm Neck Range of Motion: Full ROM Neck Circumference: Normal Teeth Condition: Edentulous ASA Classification ASA Score: ASA 2 Emergency Case?: No NPO Status NPO Status: NPO Clears >2 hours, Solids >8 hours Anesthesia Plan Resuscitation Status: Full Code Anesthesia Technique: MAC Anesthesia Airway Planned: Natural Airway Monitors Used: Standard Monitors
[2023-08-19 07:12] VITALS: BMI 19.5
[2023-08-19] MEDS: Tetracaine 0.5% 4 ML BTL OS (07:30)
[2023-08-19] MEDS: Povidone-Iodine Ophth 30 ML BTL (07:31)
[2023-08-19] MEDS: Balanced Salt Soln.-PLUS 500 ML BAG OP (07:38)
[2023-08-19] MEDS: Duovisc Viscoelastic System EACH 1 EACH (07:38)
[2023-08-19] MEDS: Lidocaine 1% Pres-Free 5 ML VIAL (07:39)
[2023-08-19] MEDS: Trypan Blue 0.06% 0.5 ML SYR (07:40)
[2023-08-19 07:58] VITALS: BP 99/67; PULSE 84; RESP 14; TEMP 36.6; O2SAT 98
--- NOTE | 2023-08-19 07:59 | PDOC.DSDIS_ITS ---
Date of service: 08/19/23 Time of Service: 07:59 Discharge Plan Disposition Patient Disposition: Home Discharge Details Attending Provider: Vitaliy Maciel Primary Care Provider: Christie Pratt Home Meds and New Rx's Prescriptions: No Action divalproex 125 mg capsule, delayed rel sprinkle 500 mg PO BID Anoro Ellipta 62.5-25 mcg/actuation blister with device 1 inh inhalation DAILY Qty: 60 6RF quetiapine [Seroquel] 50 mg tablet 50 mg PO DAILY quetiapine [Seroquel] 300 mg tablet 300 mg PO QHS (DME) Comvatec Ostomy bags 5 inches See Rx Instructions .Route .MEDSUPPLY Qty: 1 0RF Rx Instructions: #[id number] dispense 2 boxes (of 10 per box) per month refills albuterol sulfate [Proventil HFA] 90 mcg/actuation HFA aerosol inhaler 1 - 2 puff Inhalation Q4H PRN PRN (Reason: shortness of breath or wheezing) Qty: 1 2RF multivitamin Tablet 1 tab PO DAILY atenolol 100 mg tablet 50 mg PO DAILY Qty: 90 3RF thiamine mononitrate (vit B1) 100 mg tablet 100 mg PO DAILY Qty: 90 3RF folic acid 1 mg tablet 1 mg PO DAILY Qty: 90 3RF nicotine 21 mg/24 hr patch 24 hour 1 patch transdermal DAILY Qty: 28 0RF (DME) Ostomy Bag See Rx Instructions .Route .MEDSUPPLY Qty: 30 6RF Rx Instructions: Model number [id number]. Change daily PRN (DME) Ostomy Wafer See Rx Instructions .Route .MEDSUPPLY Qty: 30 6RF Rx Instructions: Model number [id number]. Change daily PRN cyclobenzaprine 5 mg tablet 5 mg PO TID PRN (Reason: muscle spasm) Qty: 21 0RF (DME) Brava coloplast barrier strips Y Shaped 0 .Route .MEDSUPPLY Qty: 30 12RF Rx Instructions: Elastic Barrier strips Y shaped. Model number [id number] mirtazapine [Remeron SolTab] 45 MG tablet,disintegrating 45 mg PO HS Rx Instructions: [facility] acetaminophen 325 MG tablet 650 mg PO Q4H PRN Qty: 30 Rx Instructions: [facility] DISCHARGE loperamide 2 MG capsule 4 mg PO QID PRNQty: 100 psyllium husk (sweetleaf) 3.5 gram powder in packet 1 packet PO TID Patient Comments: 05/26/21 [facility] hem/onc note bupropion HCl [Wellbutrin SR] 150 mg tablet sustained-release 12 hr 150 mg PO DAILY Patient Comments: 12/24/21 from progress note atorvastatin 80 mg tablet 80 mg PO DAILY Qty: 90 3RF pantoprazole 40 mg tablet,delayed release (DR/EC) 40 mg PO DAILY Qty: 90 3RF cilostazol 50 mg tablet 50 mg PO BID Qty: 180 3RF Hold Instructions: restart 08/08/20 per [facility] d/c (DME) Ostomy barrier strips See Rx Instructions .Route .MEDSUPPLY Qty: 1 11RF Rx Instructions: #[id number] dispense 1 box per month refills. alprazolam 0.25 mg tablet 0.25 mg PO .COMPLEX PRN (Reason: MRI Claustrophobia) Qty: 3 0RF Rx Instructions: 0.25 mg orally Take 1 tab prior to leaving home. Take 2nd tab after checking in. Take 3rd tab prior to study. PRN; loratadine 10 mg tablet 10 mg PO DAILY Qty: 90 3RF pregabalin 100 mg capsule 100 mg PO TID Qty: 90 2RF Discharge Instructions Stand Alone Forms: DSU Post-Op CataractDonna (DSU) Discharge Orders Discharge Orders: Discharge Order (Routine); Ordered 08/19/23 Ordered By: Vitaliy Maciel DS: Diagnosis Discharge Diagnosis (1) Cortical age-related cataract, left eye: Status: Resolved (2) Nuclear age-related cataract, left eye: Status: Resolved
--- NOTE | 2023-08-19 07:59 | W.PM.OP ---
Date of service: 08/19/23 Time of Service: 07:59 Operative Note Operative Note DATE OF PROCEDURE: 08/19/23 PRE-OP DIAGNOSIS: Nuclear/cortical cataract, left eye POST-OP DIAGNOSIS: same PROCEDURE: Cataract extraction using phacoemulsification with intraocular lens implant, left eye SURGEON: Vitaliy Maciel ANESTHESIA TYPE: Local By Surgeon and MAC Refer to Anesthesia Record PATHOLOGY: none sent COMPLICATIONS: None Patient was transported to: same day Patient's condition: stable Implants: Aaron Clareon [id number] Indications: Progressive decreased vision due to cataract, left eye Procedure Description: CATARACT SURGERY OPERATIVE REPORT PREOPERATIVE DIAGNOSIS: Nuclear/cortical cataract, left eye POSTOPERATIVE DIAGNOSIS: Same OPERATION: Cataract extraction using phacoemulsification with posterior chamber intraocular lens implant, left eye. IOL: IOL Systems Analyst Engineer/Model: Aaron Clareon [id number] IOL Power: + 19.5 diopters IOL Serial Number: [id number] Optic Diameter: 6.0mm Haptic/Overall Diameter: 13.0mm PHACO INFO: AaronVioleturion Vision System with OZil and Active Fluidics Cumulative Dispersed Energy (CDE): 6.08 seconds SURGEON: Vitaliy Maciel MD, JORDYN ANESTHESIA: Monitored Anesthesia Care (MAC), with local sub-tenon's anesthetic infiltration COMPLICATIONS: None SPECIMENS: None INDICATIONS FOR PROCEDURE: The patient is a 68-year-old male with history of diminished visual acuity in his left eye secondary to the development of nuclear/cortical cataract. He is significantly symptomatic that he desires cataract surgery and attempt to improve and maximize his vision. The option of cataract surgery was offered to the patient and he wished to proceed. See office notes for detailed information. PROCEDURE: The correct surgical eye was identified and marked as the left eye and the pupil was dilated in the preoperative area using mydriatics and cycloplegics. The dilated pupil size was 7.0 mm. Oral sedation was administered in the form of an Imprimis MKO Melt (midazolam 3mg/ketamine 25mg/ondansetron 2mg). The patient elected to proceed without oral sedation. The patient was brought to the operating room where cardiopulmonary monitoring was instituted and surgical time-out was performed, confirming the correct operative eye and IOL power. Topical anesthesia was administered and ophthalmic povidone-iodine 5% was instilled into the conjunctival fornices. The jg-ocular area was prepped with Betadine 10% solution and draped in the usual sterile fashion for intraocular surgery, including an aperture drape. A Tegaderm transparent film dressing was cut in half and used to cover the lashes and lid margins. Care was taken to sequester the lashes and lid margins under the Tegaderm dressing. A lid speculum was placed between the lids of the operative eye and the Aaron LuxOR Revalia operating microscope was maneuvered into position. Reanna scissors were then used to make a conjunctival buttonhole approximately 6mm posterior to the limbus in the inferonasal quadrant. Blunt dissection was carried out to expose bare sclera, and a blunt-tipped sub-tenon?s anesthesia cannula was introduced and passed posteriorly along the globe where non-preserved plain lidocaine was injected into posterior sub-Tenon?s space. A sideport knife was used to make a paracentesis port. VisionBlue was injected into the anterior chamber and allowed to sit for 20 seconds. Intraocular phenylephrine/lidocaine was injected into the anterior chamber. The anterior chamber was then filled with viscoelastic. A keratome knife was used construct a two-plane clear corneal tunnel extending 2.0mm into clear cornea. A flap was raised on the anterior capsule and capsulorhexis forceps were used to complete a continuous curvilinear capsulorhexis of 5.5 mm. Balanced salt solution was then used to perform cortical cleaving hydrodissection and nuclear hydrodelineation until the lens could be freely rotated within the capsular bag. The lens nucleus was then disassembled and removed within the capsular bag and iris plane using phacoemulsification. Residual cortical material was removed using the irrigation/aspiration handpiece. The posterior capsule was carefully polished to remove as much residual lens epithelial cells as safely possible. The capsular bag was then inflated and the anterior chamber deepened with viscoelastic. The lens implant described above was inserted into the capsular bag using the Aaron Autonome Injector. A Kuglen hook was used to dial the IOL into position. Residual viscoelastic was then removed first from posterior to the IOL, then from the anterior chamber using the I/A handpiece. The lens implant was noted to center nicely within the capsular bag. The incisions were stromally hydrated, and the anterior chamber was reformed using BSS. Then 0.5cc of moxifloxacin 1.0mg/ml were injected into the capsular bag and anterior chamber. The incisions were checked with a Weck spear and found to be secure. Several drops of ophthalmic povidone-iodine 5% were then applied to the eye followed by two drops of combination steroid/NSAID/antibiotic solution. The drapes were removed and a clear plastic protective eye shield was placed over the eye. The patient was then returned to Same Day Surgery in stable condition.
--- NOTE | 2023-08-19 08:13 | W.ANESPOSTOP ---
Postoperative Evaluation Date, Time and Location Date Performed: 08/19/23 Time Performed: 08:08 Patient Location: Day Surgery Unit Vital Signs Most Recent Imported Vital Signs: Most Recent Vital Signs Temp Pulse Resp BP Pulse Ox 36.6 C 84 14 99/67 L 98 08/19/23 07:58 08/19/23 07:58 08/19/23 07:58 08/19/23 07:58 08/19/23 07:58 Pain Score Most Recent Pain Score: Most Recent Pain Score Pain Level 0 08/19/23 07:58 Assessment Mental Status: Arousable with meaningful communication Airway and Respiratory Function: Patent airway with normal (patient baseline) respiratory exam Cardiovascular Function: Hemodynamically Stable Hydration Status: Adequately Hydrated Nausea & Vomiting: No Nausea or Vomiting Pain: Pt. Denies Any Pain Peripheral Nerve Block: Patient did not receive a nerve block
[2023-08-19 08:27] VITALS: BP 90/67; PULSE 84; RESP 16; TEMP 36.5; O2SAT 98
== END 2023-08-19 09:00 | disposition home or self-care (01) ==
LOC: SUR 06:21
PROVIDERS: PCP Nurse Practitioner; Visit Provider Ophthalmology
PROC: (CPT 66984; principal; 2023-08-19 07:30)
DX: H25.012 Cortical age-related cataract, left eye (principal); H25.12 Age-related nuclear cataract, left eye; F17.200 Nicotine dependence, unspecified, uncomplicated; K21.9 Gastro-esophageal reflux disease without esophagitis; I10 Essential (primary) hypertension
CPT/HCPCS: 66984; 00123; V2632; J2003

== ENCOUNTER 2023-09-02 06:51 | Day surgery (SDC) | payer OTHER, MEDICAID, SELFPAY ==
[2023-09-02 07:01] VITALS: BP 108/73; PULSE 86; RESP 14; TEMP 36.3; O2SAT 97
--- NOTE | 2023-09-02 07:30 | ANES.PREOP_ITS ---
General Info Date of Service Date Performed: 09/02/23 Height: 5 ft 10 in Weight: 61 kg Body Mass Index (BMI): 19.3 Surgical Procedure: Operation Date: 09/02/23 08:25 Proposed Procedure Side Surgeon p Cataract Extraction with IOL Implant Right Vitaliy Maciel MD Meds Allergies and Home Medications Allergies Allergy/AdvReac Type Severity Reaction Status Date / Time infliximab [From Remicade] Allergy Unknown rash, Verified 09/02/23 07:13 flushing lamotrigine Allergy Unknown Rash Verified 09/02/23 07:13 varenicline AdvReac Severe seizure Verified 09/02/23 07:13 like activity hydromorphone HCl AdvReac Intermediate itching Verified 09/02/23 07:13 [From Dilaudid] Home Medication Medication Instructions Recorded mirtazapine 45 mg disintegrating 45 mg PO HS 09/12/12 tablet (Remeron SolTab) acetaminophen 325 mg tablet 650 mg PO Q4H PRN #30 tab-caps 08/23/16 loperamide 2 mg capsule 4 mg PO QID PRN #100 tab-caps 02/08/17 divalproex 125 mg capsule,delayed 500 mg PO BID 08/04/20 release sprinkle Comvatec Ostomy bags #1 ea 04/15/21 albuterol sulfate 90 mcg/actuation 1 - 2 puff inhalation Q4H PRN PRN 04/15/21 aerosol inhaler (Proventil HFA) shortness of breath or wheezing ##1 psyllium husk (sweetleaf) 3.5 gram 1 packet PO TID 05/27/21 oral powder packet multivitamin 1 tab PO DAILY 07/01/21 bupropion HCl 150 mg tablet,12 hr 150 mg PO DAILY 12/29/21 sustained-release (Wellbutrin SR) folic acid 1 mg tablet 1 mg PO DAILY #90 tabs 09/30/22 thiamine mononitrate (vit B1) 100 100 mg PO DAILY #90 tabs 09/30/22 mg tablet atenolol 100 mg tablet 50 mg (1/2 x 100 mg) PO DAILY #90 12/23/22 tab-caps atorvastatin 80 mg tablet 80 mg PO DAILY #90 tabs 02/10/23 Ostomy Bag #30 ea 02/23/23 Ostomy Wafer #30 ea 02/23/23 nicotine 21 mg/24 hr daily 1 patch transdermal DAILY #28 ea 02/23/23 transdermal patch pantoprazole 40 mg tablet,delayed 40 mg PO DAILY #90 tab-caps 02/28/23 release cilostazol 50 mg tablet 50 mg PO BID #180 tab-caps 03/15/23 umeclidinium 62.5 mcg-vilanterol 1 inh inhalation DAILY #60 ea 03/16/23 25 mcg/actuation powdr for inhalation (Anoro Ellipta) Ostomy barrier strips #1 ea 05/30/23 alprazolam 0.25 mg tablet 0.25 mg PO .COMPLEX PRN MRI 07/05/23 Claustrophobia #3 tab-caps loratadine 10 mg tablet 10 mg PO DAILY #90 tab-caps 07/12/23 pregabalin 100 mg capsule 100 mg PO TID #90 caps 08/01/23 quetiapine 300 mg tablet (Seroquel) 300 mg PO QHS 08/03/23 quetiapine 50 mg tablet (Seroquel) 50 mg PO DAILY 08/03/23 Brava coloplast barrier strips Y #30 multiple units 08/10/23 Shaped cyclobenzaprine 5 mg tablet 5 mg PO TID PRN muscle spasm #21 08/10/23 tabs Current Visit Medications: Current Medications Generic Name Dose Route Start Last Admin Trade Name Freq PRN Reason Stop Dose Admin Acetaminophen 1,000 mg 09/02/23 06:00 Acetaminophen 500 Mg Tab PO 10/02/23 05:59 Q4H PRN PRN Balanced Salt Solution 500 ml 09/02/23 06:00 Balanced Salt Soln.-Plus 500 Ml Bag OP 10/02/23 05:59 DIRECTED [facility] Miscellaneous Medication 0 ml 09/02/23 06:00 Prednisolone 1%, Moxifloxacin 0.5%, Bromfenac 0.09% 5ml Btl OD 10/02/23 05:59 DIRECTED [facility] Miscellaneous Medication 0 ml 09/02/23 06:00 09/02/23 07:26 Tropicam./Phenyleph. (1/2.5%) 10 Ml Btl OD 10/02/23 05:59 1 drp DIRECTED [facility] Administration Tetracaine HCl 0 ml 09/02/23 06:00 Tetracaine 0.5% 4 Ml Btl OD 10/02/23 05:59 DIRECTED [facility] PFSH Active Problems Active Problems: Problem Status Onset Code Cortical age-related cataract, right eye H25.011 Nuclear age-related cataract, right eye H25.11 Cortical age-related cataract, left eye H25.012 Nuclear age-related cataract, left eye H25.12 Endobronchial mass R91.8 COPD (chronic obstructive pulmonary disease) J44.9 Hallucinations R44.3 Corneal abrasion, right 02/08/22 S05.01XA Degenerative lumbar spinal stenosis M48.061 Chronic kidney disease (CKD) N18.9 Lumbar radiculopathy, chronic M54.16 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, T45.2X5A Ulnar neuropathy at elbow of right upper extremity 12/25/14 G56.21 Ulnar neuropathy at elbow of left upper extremity 12/25/14 G56.22 Tubular adenoma of colon 05/01/15 D12.6 Thiamine deficiency neuropathy 02/24/16 E51.11 Rotator cuff syndrome of left shoulder 05/25/16 M75.102 Peripheral vascular disease 09/13/12 I73.9 Peripheral neuropathy 12/25/14 G62.9 Nicotine dependence 09/12/12 F17.200 Impaired fasting glucose 04/23/15 R73.01 Hyperlipidemia 09/13/12 E78.5 Hip pain, bilateral 06/22/16 M25.551, M25.552 Essential hypertension 09/12/12 I10 Crohn's disease 09/13/12 K50.90 Centrilobular emphysema 11/01/17 J43.2 Alcoholic peripheral neuropathy 02/24/16 G62.1 Bipolar disorder F31.9 GERD (gastroesophageal reflux disease) K21.9 Medical History Medical History Pulmonary emphysema Tobacco abuse Hyperkalemia Hx of tonic-clonic seizures 2020 last seizure 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; resected 07/29/20, annual MRI 07/26/23 F/U Hem/Onc for surveillance of brain cancer Brain mass meningioma Acute kidney injury (07/31/16) Chest pain, non-cardiac (08/10/16) negative enzymes, normal dobutamine stress echo 08/2016 Cardiac catheterization 08/30/2016: Non-obstructive CAD Tubular adenoma of colon PVD (peripheral vascular disease) Tobacco abuse Crohn disease Essential hypertension Alcohol abuse Ileostomy present Alcoholic peripheral neuropathy Medical History Comments:: 1 [place] [facility] [place] History Surgical History S/P ileostomy in situ S/P endoscopy 04/06/21 Upper Endoscopy at [facility] [place] biopsy's showed minor inflammation of esophagus, no evidence of Sepulveda's esophagus S[place] [facility] [place] coronary angiography (08/30/16) L heart [place] [facility] [place] placement (09/27/12) RIght external iliac and common iliac arteries PARTIAL ILEAL COLECTOMY AND DLI (08/10/16) Ileoscopy (07/13/17) 06/16/[address] Duran Haskins, recommendation to repeat in 1 year. Report scanned Colonoscopy - IV Sedation (04/29/15) 3mm polyp in transverse colon Angioplasty (09/27/12) Right external iliac and common iliac arteries Tobacco Smoking/Tobacco Use Status: Current every day Tobacco Type: cigarettes Smoking packs per day: 1 Smoking cigarettes per day: 20.0 Counseling given: other (discussed options, and items to help him, and pt states with stress, he is not sure if he can quit) Alcohol Alcohol Intake: former Substance Use Substance use: Daily Substance use type: marijuana Details: last marijuana was 09/01 in the afternoon Vital Signs and Lab Results Vital Signs Most Recent Vital Signs in EMR: Most Recent Vital Signs Temp Pulse Resp BP Pulse Ox 36.3 C L 86 14 108/73 97 09/02/23 07:01 09/02/23 07:01 09/02/23 07:01 09/02/23 07:01 09/02/23 07:01 Lab Results Blood Type / Crossmatch: No Data to Display Complete Blood Count: No Data to Display Complete Metabolic Panel: No Data to Display Liver Function Panel: No Data to Display Coagulation Panel: No Data to Display Cardiac Panel: No Data to Display Arterial Blood Gas: No Data to Display Venous Blood Gas: No Data to Display Pancreas Panel: No Data to Display Thyroid Panel: No Data to Display Infectious Disease: No Data to Display Blood Cultures: No Data to Display Toxicology Panel: No Data to Display Imaging and Studies Imaging and Studies Study information below may be from another EMR and interpreted by another provider. Please see original notes in EMR for more complete details. EKG Summary: DATE/TIME OF SERVICE: 08/03/23 1028 : 1955 PERFORMING LOCATION: [facility] APPROVED REPORT Exam: Resting ECG Reason for Exam: chest discomfort Patient Location: O HR:90 bpm ECG Measurements Heart Rate 90 AXIS MO 140 P 60 QRSd 76 QRS 18 QT 318 T102 QTc 389 Conclusion Sinus rhythm...normal P axis, V-rate 50- 99 Probable left atrial enlargement...P >50mS, <-0.10mV V1 Low voltage, extremity leads...all extremity leads <0.5mV Nonspecific T abnormalities, lateral leads...T <-0.10mV, I aVL V5 V6 I have reviewed and interpreted ECG and agree with software generated interpretation. Pulmonary Function Summary: Date of service: 03/24/23 Time of Service: 09:56 Pulmonary Function Test Result Indications: COPD Interpretation Spirometry: There is mild to moderate airflow limitation. No significant bronchodilator response. Lung Volumes: There is air trapping Diffusion Capacity: Decreased diffusion Airway Pressure: Normal airways resistance Impression There is mild to moderate airflow obstruction with a reduced diffusion. This can be seen in COPD with emphysema. Clinical Correlation therefore is recommended. Anesthesia Assessment and Plan Anesthesia History Personal History: Other Family History: No Family History of Anesthesia Complications Exercise Tolerance Exercise Tolerance: Metabolic Equivalents>4 Pertinent Negatives Pertinent Negatives: No Symptoms of GERD Cardiac & Pulmonary Exam Cardiac Exam: Normal S1/S2 Heart Sounds Pulmonary Exam: Clear Bilateral Breath Sounds Implantable Cardiac Device Does patient have a Pacemaker or an ICD?: No Airway Exam Known Difficult Airway: No Mallampati Class: 2 Mouth Opening: Normal (> 3cm) Thyromental Distance: Greater than 3 cm Neck Range of Motion: Full ROM Neck Circumference: Normal Teeth Condition: Edentulous ASA Classification ASA Score: ASA 2 Emergency Case?: No NPO Status NPO Status: NPO Clears >2 hours, Solids >8 hours Anesthesia Plan Resuscitation Status: Full Code Anesthesia Technique: MAC Anesthesia Airway Planned: Natural Airway Monitors Used: Standard Monitors Preoperative Comments:: Had mko last time. Dsu rn reports very strong effect. Discussed with pt to avoid sedation. Agrees.
[2023-09-02 07:34] VITALS: BMI 19.3
[2023-09-02] MEDS: Balanced Salt Soln.-PLUS 500 ML BAG OP (08:37)
[2023-09-02] MEDS: Tetracaine 0.5% 4 ML BTL OD (08:39)
[2023-09-02] MEDS: Trypan Blue 0.06% 0.5 ML SYR (08:41)
[2023-09-02] MEDS: Duovisc Viscoelastic System EACH 1 EACH (08:41)
[2023-09-02] MEDS: Lidocaine 1% Pres-Free 5 ML VIAL (08:42)
[2023-09-02] MEDS: Povidone-Iodine Ophth 30 ML BTL (08:45)
[2023-09-02 08:56] VITALS: BP 107/76; PULSE 78; RESP 16; TEMP 36.5; O2SAT 99
--- NOTE | 2023-09-02 08:56 | ROE_ITS ---
Date of service: 09/02/23 Time of Service: 08:56 Operative Note Operative Note DATE OF PROCEDURE: 09/02/23 PRE-OP DIAGNOSIS: Nuclear/cortical cataract, POST-OP DIAGNOSIS: same PROCEDURE: Cataract extraction using phacoemulsification with intraocular lens implant, right eye SURGEON: Vitaliy Maciel ANESTHESIA TYPE: Local By Surgeon and MAC Refer to Anesthesia Record ESTIMATED BLOOD LOSS: 0 PATHOLOGY: none sent COMPLICATIONS: None Patient was transported to: same day Patient's condition: stable Implants: Aaron Clareon [id number] Indications: Progressive decreased vision due to cataract, right eye Procedure Description: CATARACT SURGERY OPERATIVE REPORT PREOPERATIVE DIAGNOSIS: Nuclear/cortical cataract, right eye POSTOPERATIVE DIAGNOSIS: Same OPERATION: Cataract extraction using phacoemulsification with posterior chamber intraocular lens implant, right eye. IOL: IOL Regional Environmental Manager/Model: Aaron Clareon [id number] IOL Power: + 20.0 diopters IOL Serial Number: [id number] Optic Diameter: 6.0mm Haptic/Overall Diameter: 13.0mm PHACO INFO: AaronLetMeHearYaurion Vision System with OZil and Active Fluidics Cumulative Dispersed Energy (CDE): 5.05 seconds SURGEON: Vitaliy Maciel MD, JORDYN ANESTHESIA: Monitored Anesthesia Care (MAC), with local sub-tenon's anesthetic infiltration COMPLICATIONS: None SPECIMENS: None INDICATIONS FOR PROCEDURE: Patient is a 68-year-old male with history of diminished visual acuity in both e yes secondary to development of bilateral nuclear/cortical cataract. He has already undergone cataract surgery in the left eye and is doing well postoperatively. He now presents for cataract surgery in the right eye. See office notes for detailed information. PROCEDURE: The correct surgical eye was identified and marked as the right eye and the pupil was dilated in the preoperative area using mydriatics and cycloplegics. The dilated pupil size was 7.0 mm. The patient elected to proceed without oral sedation. The patient was brought to the operating room where cardiopulmonary monitoring was instituted and surgical time-out was performed, confirming the correct operative eye and IOL power. Topical anesthesia was administered and ophthalmic povidone-iodine 5% was instilled into the conjunctival fornices. The jg-ocular area was prepped with Betadine 10% solution and draped in the usual sterile fashion for intraocular surgery, including an aperture drape. A Tegaderm transparent film dressing was cut in half and used to cover the lashes and lid margins. Care was taken to sequester the lashes and lid margins under the Tegaderm dressing. A lid speculum was placed between the lids of the operative eye and the Simran-Tanna operating microscope was maneuvered into position. Reanna scissors were then used to make a conjunctival buttonhole approximately 6mm posterior to the limbus in the inferonasal quadrant. Blunt dissection was carried out to expose bare sclera, and a blunt-tipped sub-tenon?s anesthesia cannula was introduced and passed posteriorly along the globe where non- preserved plain lidocaine was injected into posterior sub-Tenon?s space. A sideport knife was used to make a paracentesis port. VisionBlue was injected into the anterior chamber and allowed to sit for 20 seconds. Intraocular phenylephrine/lidocaine was injected into the anterior chamber. The anterior chamber was then filled with viscoelastic. A keratome knife was used to construct a two--plane clear corneal tunnel extending 2.0mm into clear cornea. A flap was raised on the anterior capsule and capsulorhexis forceps were used to complete a continuous curvilinear capsulorhexis of 5.0 mm. Balanced salt solution was then used to perform cortical cleaving hydrodissection and nuclear hydrodelineation until the lens could be freely rotated within the capsular bag. The lens nucleus was then disassembled and removed within the capsular bag and iris plane using phacoemulsification. Residual cortical material was removed using the I/A handpiece. The posterior capsule was carefully polished to remove as much residual lens epithelial cells as safely possible. The capsular bag was then inflated and the anterior chamber deepened with cohesive viscoelastic. The lens implant described above was inserted into the capsular bag using the Aaron Autonome Injector. A Kuglen hook was used to dial the IOL into position. Residual viscoelastic was then removed first from posterior to the IOL, then from the anterior chamber using the I/A handpiece. The lens implant was noted to center nicely within the capsular bag. The incisions were stromally hydrated, and the anterior chamber was reformed using BSS. Then 0.5cc of moxifloxacin 1.0mg/ml were injected into the capsular bag and anterior chamber. The incisions were checked with a Weck spear and found to be secure. Several drops of ophthalmic povidone-iodine 5% were then applied to the eye followed by two drops of combination steroid/NSAID/antibiotic solution. The drapes were removed and a clear plastic protective eye shield was placed over the eye. The patient was then returned to Same Day Surgery in stable condition.
--- NOTE | 2023-09-02 08:56 | W.PM.DSUDISC ---
Date of service: 09/02/23 Time of Service: 08:56 Discharge Plan Disposition Patient Disposition: Home Discharge Details Attending Provider: Vitaliy Maciel Primary Care Provider: Christie Pratt Home Meds and New Rx's Prescriptions: No Action divalproex 125 mg capsule, delayed rel sprinkle 500 mg PO BID Anoro Ellipta 62.5-25 mcg/actuation blister with device 1 inh inhalation DAILY Qty: 60 6RF quetiapine [Seroquel] 50 mg tablet 50 mg PO DAILY quetiapine [Seroquel] 300 mg tablet 300 mg PO QHS (DME) Comvatec Ostomy bags 5 inches See Rx Instructions .Route .MEDSUPPLY Qty: 1 0RF Rx Instructions: #[id number] dispense 2 boxes (of 10 per box) per month refills albuterol sulfate [Proventil HFA] 90 mcg/actuation HFA aerosol inhaler 1 - 2 puff Inhalation Q4H PRN PRN (Reason: shortness of breath or wheezing) Qty: 1 2RF multivitamin Tablet 1 tab PO DAILY atenolol 100 mg tablet 50 mg PO DAILY Qty: 90 3RF thiamine mononitrate (vit B1) 100 mg tablet 100 mg PO DAILY Qty: 90 3RF folic acid 1 mg tablet 1 mg PO DAILY Qty: 90 3RF nicotine 21 mg/24 hr patch 24 hour 1 patch transdermal DAILY Qty: 28 0RF (DME) Ostomy Bag See Rx Instructions .Route .MEDSUPPLY Qty: 30 6RF Rx Instructions: Model number [id number]. Change daily PRN (DME) Ostomy Wafer See Rx Instructions .Route .MEDSUPPLY Qty: 30 6RF Rx Instructions: Model number [id number]. Change daily PRN cyclobenzaprine 5 mg tablet 5 mg PO TID PRN (Reason: muscle spasm) Qty: 21 0RF (DME) Brava coloplast barrier strips Y Shaped 0 .Route .MEDSUPPLY Qty: 30 12RF Rx Instructions: Elastic Barrier strips Y shaped. Model number [id number] mirtazapine [Remeron SolTab] 45 MG tablet,disintegrating 45 mg PO HS Rx Instructions: [facility] acetaminophen 325 MG tablet 650 mg PO Q4H PRN Qty: 30 Rx Instructions: [facility] DISCHARGE loperamide 2 MG capsule 4 mg PO QID PRNQty: 100 psyllium husk (sweetleaf) 3.5 gram powder in packet 1 packet PO TID Patient Comments: 05/26/21 [facility] hem/onc note bupropion HCl [Wellbutrin SR] 150 mg tablet sustained-release 12 hr 150 mg PO DAILY Patient Comments: 12/24/21 from progress note atorvastatin 80 mg tablet 80 mg PO DAILY Qty: 90 3RF pantoprazole 40 mg tablet,delayed release (DR/EC) 40 mg PO DAILY Qty: 90 3RF cilostazol 50 mg tablet 50 mg PO BID Qty: 180 3RF Hold Instructions: restart 08/08/20 per [facility] d/c (DME) Ostomy barrier strips See Rx Instructions .Route .MEDSUPPLY Qty: 1 11RF Rx Instructions: #[id number] dispense 1 box per month refills. alprazolam 0.25 mg tablet 0.25 mg PO .COMPLEX PRN (Reason: MRI Claustrophobia) Qty: 3 0RF Rx Instructions: 0.25 mg orally Take 1 tab prior to leaving home. Take 2nd tab after checking in. Take 3rd tab prior to study. PRN; loratadine 10 mg tablet 10 mg PO DAILY Qty: 90 3RF pregabalin 100 mg capsule 100 mg PO TID Qty: 90 2RF Discharge Instructions Stand Alone Forms: DSU Post-Op CataractDonna (DSU) Discharge Orders Discharge Orders: Discharge Order (Routine); Ordered 09/02/23 Ordered By: Vitaliy Maciel DS: Diagnosis Discharge Diagnosis (1) Cortical age-related cataract, right eye: Status: Resolved (2) Nuclear age-related cataract, right eye: Status: Resolved
--- NOTE | 2023-09-02 09:07 | W.ANESPOSTOP ---
Postoperative Evaluation Date, Time and Location Date Performed: 09/02/23 Time Performed: 09:08 Patient Location: Day Surgery Unit Vital Signs Most Recent Imported Vital Signs: Most Recent Vital Signs Temp Pulse Resp BP Pulse Ox 36.5 C 78 16 107/76 99 09/02/23 08:56 09/02/23 08:56 09/02/23 08:56 09/02/23 08:56 09/02/23 08:56 Pain Score Most Recent Pain Score: Most Recent Pain Score Pain Level 0 09/02/23 07:01 Assessment Mental Status: Awake (Alert & Oriented to Patient Baseline) Airway and Respiratory Function: Patent airway with normal (patient baseline) respiratory exam Cardiovascular Function: Hemodynamically Stable Hydration Status: Adequately Hydrated Nausea & Vomiting: No Nausea or Vomiting Pain: Pt. Denies Any Pain Peripheral Nerve Block: Patient did not receive a nerve block
== END 2023-09-02 09:16 | disposition home or self-care (01) ==
LOC: SUR 06:51
PROVIDERS: PCP Nurse Practitioner; Visit Provider Ophthalmology
PROC: (CPT 66984; principal; 2023-09-02 08:15)
DX: H25.011 Cortical age-related cataract, right eye (principal); H25.11 Age-related nuclear cataract, right eye; K21.9 Gastro-esophageal reflux disease without esophagitis; I10 Essential (primary) hypertension; Z98.42 Cataract extraction status, left eye
CPT/HCPCS: 66984; 00123; V2632; J2003

== ENCOUNTER → 2023-12-20 13:04 | Outpatient (BNVA) | payer OTHER, MEDICAID, SELFPAY | PROVIDERS: PCP Nurse Practitioner; Referring Provider Nurse Practitioner; Visit Provider Podiatrist | DX: N18.9 Chronic kidney disease, unspecified; I70.203 Unspecified atherosclerosis of native arteries of extremities, bilateral legs; G62.9 Polyneuropathy, unspecified; Z93.3 Colostomy status; L60.3 Nail dystrophy; B35.1 Tinea unguium; L84 Corns and callosities; R09.89 Other specified symptoms and signs involving the circulatory and respiratory systems; L65.9 Nonscarring hair loss, unspecified; R23.8 Other skin changes; L60.8 Other nail disorders; L60.2 Onychogryphosis; L85.1 Acquired keratosis [keratoderma] palmaris et plantaris | CPT/HCPCS: 11056; 11721 ==

== ENCOUNTER → 2024-01-09 09:09 | Outpatient (BNVA) | payer OTHER, MEDICAID, SELFPAY | PROVIDERS: PCP Nurse Practitioner; Referring Provider Nurse Practitioner; Visit Provider Physician Assistant Surgical | DX: J43.2 Centrilobular emphysema (principal); R91.8 Other nonspecific abnormal finding of lung field; F17.200 Nicotine dependence, unspecified, uncomplicated | CPT/HCPCS: 99214 ==

== ENCOUNTER → 2024-02-03 12:33 | Outpatient (BNVA) | payer OTHER, MEDICAID, SELFPAY | PROVIDERS: PCP Nurse Practitioner; Referring Provider Nurse Practitioner; Visit Provider Physical Therapy Assistant | DX: I70.203 Unspecified atherosclerosis of native arteries of extremities, bilateral legs (principal) | CPT/HCPCS: 93922 ==

== ENCOUNTER → 2024-06-19 12:54 | Outpatient (BNVA) | payer OTHER, MEDICAID, SELFPAY | PROVIDERS: PCP Nurse Practitioner; Referring Provider Nurse Practitioner; Visit Provider Podiatrist | DX: L60.3 Nail dystrophy (principal); L84 Corns and callosities; B35.1 Tinea unguium; G62.9 Polyneuropathy, unspecified; I70.203 Unspecified atherosclerosis of native arteries of extremities, bilateral legs | CPT/HCPCS: 11056 ==

== ENCOUNTER 2024-06-20 10:33 | Outpatient (REF) | payer OTHER, MEDICAID, SELFPAY ==
[2024-06-20 15:29] LABS: Abs Immature Grans 0.02 10^3/uL (0.0-0.06); Absolute Basophil Count 0.03 10^3/uL (0.0-0.2); Absolute Eosinophil Count 0.12 10^3/uL (0.0-0.7); Absolute Lymphocyte Count 1.76 10^3/uL (1.2-3.4); Absolute Monocyte Count 0.81 10^3/uL (0.1-0.8); Absolute Neutrophil Count 3.35 10^3/uL (1.2-6.7); Basophils % 0.5 %; HCT 39.7 % (40.0-50.0); HGB 12.1 g/dL (13.5-17.5); Immature Grans % 0.3 %; Lymphocytes % 28.9 %; MCH 28.5 pg (27.0-33.0); MCHC 30.5 % (32.0-36.0); MCV 94 fL (80-95); Monocytes % 13.3 %; Platelet Count 218 10^3/uL (130-400); RBC 4.24 10^6/uL (4.36-5.78); RDW 14.5 % (11.8-14.1); RDW-SD 49.5 fL; WBC 6.09 10^3/uL (4.4-10.8)
[2024-06-20 15:53] LABS: ALT 69 U/L (16-63); AST 96 U/L (15-37); Albumin 2.9 g/dL (3.4-5.0); Alkaline Phosphatase 251 U/L (46-116); Anion Gap 6.9 mmol/L (3-11); BUN 22 mg/dL (7-18); Bilirubin, Total 0.36 mg/dL (0.2-1.0); CO2 27.1 mmol/L (21.0-32.0); CREATININE 1.7 mg/dL (0.70-1.30); Calcium 8.3 mg/dL (8.5-10.1); Calculated LDL 38 mg/dL (<100); Chloride 109 mmol/L (98-107); Cholesterol 113 mg/dL (<200); Estimated GFR 42.83 (mL/min/1.73m2); Glucose 99 mg/dL (74-106); HDL Cholesterol 68 mg/dL (40-60); Potassium 4.9 mmol/L (3.5-5.1); Sodium 143 mmol/L (136-145); Total Protein 7.2 g/dL (6.4-8.2); Triglyceride 39 mg/dL (<150)
== END 2024-06-20 10:34 | disposition home or self-care (01) ==
LOC: LBN 10:33
PROVIDERS: PCP Nurse Practitioner; Visit Provider Nurse Practitioner
DX: N18.9 Chronic kidney disease, unspecified (principal); I10 Essential (primary) hypertension; E78.5 Hyperlipidemia, unspecified
CPT/HCPCS: 80053; 80061; 85025

== ENCOUNTER → 2024-07-09 09:40 | Outpatient (BNVA) | payer OTHER, MEDICAID, SELFPAY | PROVIDERS: PCP Nurse Practitioner; Referring Provider Nurse Practitioner; Visit Provider Physician Assistant Surgical | DX: J43.2 Centrilobular emphysema (principal); F17.200 Nicotine dependence, unspecified, uncomplicated | CPT/HCPCS: 99214 ==

== ENCOUNTER 2024-07-10 02:13 | Outpatient (CLI) | payer OTHER, MEDICAID, SELFPAY ==
[2024-07-12 14:43] LABS: Cotinine <3.0 ng/mL (<3.0); Nicotine <3.0 ng/mL (<3.0)
== END 2024-07-10 02:14 | disposition home or self-care (01) ==
LOC: LBO 02:13
PROVIDERS: PCP Nurse Practitioner; Visit Provider Colon & Rectal Surgery
DX: K50.012 Crohn's disease of small intestine with intestinal obstruction (principal); K43.2 Incisional hernia without obstruction or gangrene; Z87.891 Personal history of nicotine dependence
CPT/HCPCS: 36415; 80323

== ENCOUNTER 2024-07-22 20:19 | Emergency (ER) | payer MEDICARE, MEDICAID, SELFPAY ==
[2024-07-22] VITALS (40 sets, daily range): BP systolic 109–198; BP diastolic 81–110; PULSE 97–135; RESP 10–36; TEMP 36.1–36.8; O2SAT 93–100
--- NOTE | 2024-07-22 20:25 | ED.GENADUL_ITS ---
Discharge Plan Discharge Details Chief Complaint: Abd Prob Primary Care Provider: Christie Pratt ED Provider: Shakira Maza Home Meds and New Rx's Prescriptions: No Action divalproex 125 mg capsule, delayed rel sprinkle 500 mg PO BID quetiapine [Seroquel] 50 mg tablet 50 mg PO DAILY (DME) Comvatec Ostomy bags 5 inches See Rx Instructions .Route .MEDSUPPLY Qty: 1 0RF Rx Instructions: #[id number] dispense 2 boxes (of 10 per box) per month refills albuterol sulfate [Proventil HFA] 90 mcg/actuation HFA aerosol inhaler 1 - 2 puff Inhalation Q4H PRN PRN (Reason: shortness of breath or wheezing) Qty: 1 2RF multivitamin Tablet 1 tab PO DAILY (DME) Ostomy Bag See Rx Instructions .Route .MEDSUPPLY Qty: 30 6RF Rx Instructions: Model number [id number]. Change daily PRN (DME) Ostomy Wafer See Rx Instructions .Route .MEDSUPPLY Qty: 30 6RF Rx Instructions: Model number [id number]. Change daily PRN cyclobenzaprine 5 mg tablet 5 mg PO TID PRN (Reason: muscle spasm) Qty: 21 0RF (DME) Brava coloplast barrier strips Y Shaped 0 .Route .MEDSUPPLY Qty: 30 12RF Rx Instructions: Elastic Barrier strips Y shaped. Model number [id number] pantoprazole 40 mg tablet,delayed release (DR/EC) 40 mg PO DAILY Qty: 90 3RF ketoconazole 2 % cream 1 applic topical DAILY Qty: 120 6RF Rx Instructions: Apply to toenails once daily urea 40 % cream 1 applic topical DAILY Qty: 28.35 3RF quetiapine [Seroquel] 100 mg tablet 100 mg PO QHS Anoro Ellipta 62.5-25 mcg/actuation blister with device 1 inh inhalation DAILY Qty: 60 12RF mirtazapine [Remeron SolTab] 45 MG tablet,disintegrating 45 mg PO HS Rx Instructions: [facility] acetaminophen 325 MG tablet 650 mg PO Q4H PRN Qty: 30 Rx Instructions: [facility] DISCHARGE loperamide 2 MG capsule 4 mg PO QID PRNQty: 100 psyllium husk (sweetleaf) 3.5 gram powder in packet 1 packet PO TID Patient Comments: 05/26/21 [facility] hem/onc note (DME) Ostomy barrier strips See Rx Instructions .Route .MEDSUPPLY Qty: 1 11RF Rx Instructions: #[id number] dispense 1 box per month refills. thiamine mononitrate (vit B1) 100 mg tablet 100 mg PO DAILY Qty: 90 3RF folic acid 1 mg tablet 1 mg PO DAILY Qty: 90 3RF atenolol 100 mg tablet See Rx Instructions .ROUTE .COMPLEX Qty: 15 12RF Dose Instruction: TAKE 1/2 TABLET BY MOUTH DAILY Rx Instructions: TAKE 1/2 TABLET BY MOUTH DAILY atorvastatin 80 mg tablet 80 mg PO DAILY Qty: 90 3RF pregabalin 100 mg capsule 100 mg PO TID Qty: 90 3RF bupropion HCl [Wellbutrin SR] 150 mg tablet sustained-release 12 hr 150 mg PO BID Patient Comments: per pt at 06/20/24 ov cilostazol 50 mg tablet See Rx Instructions .ROUTE .COMPLEX Qty: 60 6RF Dose Instruction: TAKE 1 TABLET BY MOUTH TWICE A DAY Rx Instructions: TAKE 1 TABLET BY MOUTH TWICE A DAY (DME) Stoma Barrier wipes See Rx Instructions .Route .MEDSUPPLY Qty: 2 11RF Rx Instructions: PLEASE PROVIDE PATIENT WITH ALCOHOL FREE WIPES. THE CURRENT ONES HE HAS ARE IRRITATING HIS SKIN. HE NEEDS TWO BOXES A MONTH loratadine 10 mg tablet 10 mg PO DAILY Qty: 90 3RF HPI General Date/Time Provider Initiated Documentation: 07/22/24 20:47 . HPI Narrative: Ulises is a 69 year old male who presents to the emergency department today for evaluation of sudden onset of severe abdominal pain accompanied by generalized full body pain starting 1630 today. This is accompanied by nausea and increased ostomy output. He reports that he was feeling well earlier in the day, but as the day wore on he started to feel unwell. He reports that he fell a couple of times because he felt unsteady on his feet. After he laid down to rest, he developed abdominal pain. No known inciting event. Denies associated fever/chills, recent illness such as congestion, sore throat, cough, vomiting, change in bladder function, change in appearance of ostomy, unusual weight loss, digestive complaints. Past medical history is significant for COPD, CKD, Crohn's disease with ostomy, HTN, HLD, EtOH abuse with peripheral neuropathy, seizure disorder, and degenerative spinal stenosis. Physical exam remarkable for very uncomfortable appearing patient writhing on stretcher. Abdomen is soft, nondistended, generalized tenderness to palpation with normoactive bowel sounds. Ostomy beefy red, no blood in output. Easy work of breathing, lung sounds clear bilaterally. Normal heart sounds. Moist mucous membranes, though lips appear dry. D/dx includes but is not limited to: Mesenteric ischemia, bowel obstruction, diverticulitis/colitis, viral gastroenteritis, pancreatitis, cholecystitis/choledocholithiasis, nephrolithiasis. I independently interpreted the following tests: Lactate elevated at 3.2. CBC notable for leukocytosis with white cell count 19.31. CMP notable for creatinine 1.80, elevated alk phosphatase (308), and elevated AST (159) with normal ALT. Mild hypomagnesemia noted magnesium 1.4. Lipase unremarkable.. While in the emergency department, Ulises received IV Zofran and morphine for pain control, as well as 1 L normal saline and zosyn for empiric treatment of likely abdominal source of infection; blood cultures pending. As patient does not appear clinically dehydrated, slightly less than the full 30 cc per kilo given, patient administered 1500 mL total normal saline. Patient does meet sepsis criteria according to SIRS. Ulises received multiple doses of morphine without any improvement in symptoms, fentanyl ordered for pain control. CT remarkable for large abdominal mass, 13.4 cm x 17.2 cm x 14.3 cm heterogenous hepatic mass noted with large regions of vascular enhancement. Call placed to [facility] transfer center; no beds were available at this time. Consult requested. Handoff report given to Dr. Lane, overnight attending physician. Related Data Home Medications ?Medication ?Instructions ?Recorded ?Confirmed mirtazapine 45 mg disintegrating 45 mg PO HS 09/12/12 07/22/24 tablet (Remeron SolTab) acetaminophen 325 mg tablet 650 mg PO Q4H PRN #30 tab-caps 08/23/16 07/22/24 loperamide 2 mg capsule 4 mg PO QID PRN #100 tab-caps 02/08/17 07/22/24 divalproex 125 mg capsule,delayed 500 mg PO BID 08/04/20 07/22/24 release sprinkle Comvatec Ostomy bags #1 ea 04/15/21 07/22/24 albuterol sulfate 90 mcg/actuation 1 - 2 puff inhalation Q4H PRN PRN 04/15/21 07/22/24 aerosol inhaler (Proventil HFA) shortness of breath or wheezing ##1 psyllium husk (sweetleaf) 3.5 gram 1 packet PO TID 05/27/21 07/22/24 oral powder packet multivitamin 1 tab PO DAILY 07/01/21 07/22/24 Ostomy Bag #30 ea 02/23/23 07/22/24 Ostomy Wafer #30 ea 02/23/23 07/22/24 Ostomy barrier strips #1 ea 05/30/23 07/22/24 quetiapine 50 mg tablet (Seroquel) 50 mg PO DAILY 08/03/23 07/22/24 Brava coloplast barrier strips Y #30 multiple units 08/10/23 07/22/24 Shaped cyclobenzaprine 5 mg tablet 5 mg PO TID PRN muscle spasm #21 08/10/23 07/22/24 tabs thiamine mononitrate (vit B1) 100 100 mg PO DAILY #90 tabs 10/10/23 07/22/24 mg tablet folic acid 1 mg tablet 1 mg PO DAILY #90 tabs 11/16/23 07/22/24 ketoconazole 2 % topical cream 1 applic topical DAILY #120 grams 12/20/23 07/22/24 urea 40 % topical cream 1 applic topical DAILY #28.35 grams 12/20/23 07/22/24 quetiapine 100 mg tablet (Seroquel) 100 mg PO QHS 01/09/24 07/22/24 atenolol 100 mg tablet See Rx Instructions .Route 01/16/24 07/22/24 .COMPLEX #15 tabs atorvastatin 80 mg tablet 80 mg PO DAILY #90 tabs 02/07/24 07/22/24 pantoprazole 40 mg tablet,delayed 40 mg PO DAILY #90 tab-caps 02/21/24 07/22/24 release pregabalin 100 mg capsule 100 mg PO TID #90 caps 04/10/24 07/22/24 bupropion HCl 150 mg tablet,12 hr 150 mg PO BID 06/20/24 07/22/24 sustained-release (Wellbutrin SR) cilostazol 50 mg tablet See Rx Instructions .Route 06/26/24 07/22/24 .COMPLEX #60 tabs Stoma Barrier wipes #2 ea 07/02/24 07/22/24 umeclidinium 62.5 mcg-vilanterol 1 inh inhalation DAILY #60 ea 07/09/24 07/22/24 25 mcg/actuation powdr for inhalation (Anoro Ellipta) loratadine 10 mg tablet 10 mg PO DAILY #90 tab-caps 07/18/24 07/22/24 Previous Rx's ?Medication ?Instructions ?Recorded Comvate Ostomy bags #1 ea 04/15/21 albuterol sulfate 90 mcg/actuation 1 - 2 puff inhalation Q4H PRN PRN 04/15/21 aerosol inhaler (Proventil HFA) shortness of breath or wheezing ##1 Ostomy Bag #30 ea 02/23/23 Ostomy Wafer #30 ea 02/23/23 Ostomy barrier strips #1 ea 05/30/23 Brava coloplast barrier strips Y #30 multiple units 08/10/23 Shaped cyclobenzaprine 5 mg tablet 5 mg PO TID PRN muscle spasm #21 08/10/23 tabs thiamine mononitrate (vit B1) 100 100 mg PO DAILY #90 tabs 10/10/23 mg tablet folic acid 1 mg tablet 1 mg PO DAILY #90 tabs 11/16/23 ketoconazole 2 % topical cream 1 applic topical DAILY #120 grams 12/20/23 urea 40 % topical cream 1 applic topical DAILY #28.35 grams 12/20/23 atenolol 100 mg tablet See Rx Instructions .Route 01/16/24 .COMPLEX #15 tabs atorvastatin 80 mg tablet 80 mg PO DAILY #90 tabs 02/07/24 pantoprazole 40 mg tablet,delayed 40 mg PO DAILY #90 tab-caps 02/21/24 release pregabalin 100 mg capsule 100 mg PO TID #90 caps 04/10/24 cilostazol 50 mg tablet See Rx Instructions .Route 06/26/24 .COMPLEX #60 tabs Stoma Barrier wipes #2 ea 07/02/24 umeclidinium 62.5 mcg-vilanterol 1 inh inhalation DAILY #60 ea 07/09/24 25 mcg/actuation powdr for inhalation (Anoro Ellipta) loratadine 10 mg tablet 10 mg PO DAILY #90 tab-caps 07/18/24 Allergies Allergy/AdvReac Type Severity Reaction Status Date / Time infliximab (From Remicade) Allergy Unknown rash, Verified 07/22/24 20:20 flushing lamotrigine Allergy Unknown Rash Verified 07/22/24 20:20 varenicline AdvReac Severe seizure Verified 07/22/24 20:20 like activity hydromorphone HCl (From AdvReac Intermediate itching Verified 07/22/24 20:20 Dilaudid) General Stated Complaint: Abd Prob RANDALL: 3 Review of Systems Narrative: See HPI Exam Const General: cooperative, in distress (in pain), anxious, disheveled and frail appearing Nutritional Appearance: cachectic Orientation: alert and oriented x3 HENMT General nose exam: external nose normal Face and sinus: normal facial exam Mouth: oral mucosae normal, lip normal (white film on lips), tongue normal and moist mucous membranes Resp Effort & Inspection: normal respiratory effort and able to speak in complete sentences Auscultation: clear to auscultation bilaterally Cardio Rate: tachycardic Rhythm: regular rhythm GI Inspection: normal to inspection, no abdominal wall ecchymosis, distended (softly distended), visible herniation (L side) and other (ostomy stoma large and beefy red, yellow stool) Palpation: soft, not firm, no guarding, no pulsatile masses, not rigid and tender (diffuse) Auscultation: normal bowel sounds Course Vital Signs Vital signs: Vital Signs Temperature 36.1 C L 07/22/24 20:16 Pulse 120 H 07/22/24 20:16 Respiratory Rate 18 07/22/24 20:16 Blood Pressure 139/105 H 07/22/24 20:16 Pulse Oximetry 99 07/22/24 20:16 Temperature 36.1 C L 07/22/24 20:16 Pulse 120 H 07/22/24 20:16 Respiratory Rate 18 07/22/24 20:16 Blood Pressure 139/105 H 07/22/24 20:16 Pulse Oximetry 99 07/22/24 20:16 Oxygen Delivery Method Room Air 07/22/24 20:16 Oxygen Flow Rate 0 07/22/24 20:16 Pain Level 10 07/22/24 20:16 Medical Decision Making Quality:SDOH Health Related Social Needs: No Data to Display PFSH All Active Problems Parastomal hernia without obstruction or gangrene (Acute ~2022) 01/10/24 saw General Surgery Atherosclerosis of artery of both lower extremities (Acute) Neuropathy (Acute) Corns and callosities (Acute) Nail dystrophy (Acute) Onychomycosis (Acute) Endobronchial mass (Acute) COPD (chronic obstructive pulmonary disease) (Chronic) Hallucinations (Acute) Corneal abrasion, right (Acute 02/08/22) Degenerative lumbar spinal stenosis (Acute) Chronic kidney disease (CKD) (Chronic) Lumbar radiculopathy, chronic (Chronic) Disc degeneration at L4-5 and L5-S1. Marked facet hypertrophic degenerative changes of the lumbar spine. Probable significant disc herniation at L4-5. Vitamin B6 induced neuropathy (Acute 02/24/16) Ulnar neuropathy at elbow of right upper extremity (Acute 12/25/14) Ulnar neuropathy at elbow of left upper extremity (Acute 12/25/14) Tubular adenoma of colon (Acute 05/01/15) [facility]/ - rehana for 5yr fu 04/2020 Thiamine deficiency neuropathy (Acute 02/24/16) Rotator cuff syndrome of left shoulder (Acute 05/25/16) Peripheral vascular disease (Chronic 09/13/12) Peripheral neuropathy (Chronic 12/25/14) Nicotine dependence (Acute 09/12/12) Impaired fasting glucose (Acute 04/23/15) Hyperlipidemia (Acute 09/13/12) Hip pain, bilateral (Acute 06/22/16) Essential hypertension (Chronic 09/12/12) Crohn's disease (Acute 09/13/12) Centrilobular emphysema (Acute 11/01/17) diagnosed by CT scan Alcoholic peripheral neuropathy (Acute 02/24/16) Bipolar disorder (Chronic) GERD (gastroesophageal reflux disease) (Acute) Medical History Pulmonary emphysema Tobacco abuse Hyperkalemia Hx of tonic-clonic seizures 2020 last seizure 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; resected 07/29/20, annual MRI 07/26/23 F/U Hem/Onc for surveillance of brain cancer Brain mass meningioma Acute kidney injury (07/31/16) Chest pain, non-cardiac (08/10/16) negative enzymes, normal dobutamine stress echo 08/2016 Cardiac catheterization 08/30/2016: Non-obstructive CAD Tubular adenoma of colon PVD (peripheral vascular disease) Tobacco abuse Crohn disease Essential hypertension Alcohol abuse Ileostomy present Alcoholic peripheral neuropathy Surgical History S/P ileostomy in situ S/P endoscopy 04/06/21 [place] [facility] [place]'s showed minor inflammation of esophagus, no evidence of Sepulveda's esophagus S/P craniotomy [facility] 07/29/20 coronary angiography (08/30/16) L heart catheterization [facility] Stent placement (09/27/12) RIght external iliac and common iliac arteries PARTIAL ILEAL COLECTOMY AND DLI (08/10/16) Ileoscopy (07/13/17) 06/16/[address] Duran Haskins, recommendation to repeat in 1 year. Report scanned 11/2023-Dr Haskins, 3-4cm paastomal hernia Colonoscopy - IV Sedation (04/29/15) 3mm polyp in transverse colon Angioplasty (09/27/12) Right external iliac and common iliac arteries Family History Mother Essential hypertension Diabetes Heart disease Stroke Social History Smoking/Tobacco Use Status: Current every day Tobacco Type: cigarettes Smoking packs per day: 1 Smoking cigarettes per day: 20.0 Tobacco: How many years used: 55 Quit status: considering quitting Counseling given: other (discussed options, and items to help him, and pt states with stress, he is not sure if he can quit) Smoking risk assessment performed?: Yes Alcohol Intake: former Drug use: Daily Substance use type: marijuana Details: last marijuana was 09/01 in the afternoon Household members: none Housing: apartment Number of Children: 2 Communication Needs: None 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, 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 Pets and animals: Yes Pets and animals: cat(s) Current gender identity: male What is your relationship status?: How often do you talk on the phone with friends or family?: twice per week Panel score (0-1 are the most socially isolated patients): 0 What type of physical activity do you participate in: walking Seatbelt use: always Drive intox or ride w/intox fast food delivery driver: No Water heater temp set <120 deg: Yes Working smoke detector in home: Yes Fire extinguisher in home: Yes Carbon monox detector in home: Yes Do you feel safe at home: Yes Do you feel safe in your relationship?: Yes
[2024-07-22] MEDS: MORPHine 4 MG/ML SYR (20:27)
[2024-07-22] MEDS: Ondansetron 4 MG/2 ML VIAL (20:27)
[2024-07-22 20:35] LABS: HCT 39.9 % (40.0-50.0); HGB 12.8 g/dL (13.5-17.5); MCH 27.6 pg (27.0-33.0); MCHC 32.1 % (32.0-36.0); MCV 86 fL (80-95); MPV 12.3 fL (8.0-11.0); Platelet Count 346 10^3/uL (130-400); RBC 4.63 10^6/uL (4.36-5.78); RDW-SD 46.6 fL; WBC 19.31 10^3/uL (4.4-10.8)
[2024-07-22 20:42] LABS: Lactate 3.2 mmol/L (0.6-1.4)
--- NOTE | 2024-07-22 20:45 | DI.CT_ITS ---
Exam(s) CT ABDOMEN PELVIS CTA EXAM: CT ABDOMEN PELVIS CTA CLINICAL HISTORY: severe abdominal pain, elevated lactate. TECHNIQUE: Imaging Protocol: Axial CT angiography was performed with multi-slice acquisition and m ulti-planar and/or 3D reconstructions. CONTRAST MATERIAL: Intravenous: Omnipaque 350 Contrast volume:75 mL Oral: no COMPARISON: CT CT CHEST/ABD/PEL W from 01/28/2023 FINDINGS: Vascular Structures: Celiac [place]:No evidence of stenosis. SMA: No evidence of stenosis. Renal Arteries: No evidence of stenosis. There is a single renal artery perfusing each kidney. Aorta: No aneurysm. No dissection. No significant stenosis. Atherosclerotic changes greater mid to distally. Iliac Arteries: Stents in right common and external iliac arteries which are patent. Severe multifo nya narrowing of both internal iliac arteries. Common Femoral Arteries: No evidence of stenosis. Soft Tissues:Unremarkable. Lung bases:No acute findings. Liver: Normal size. Normal density. Large mass which is new since the previous exam measuring rough ly 13 x 17 x 14 cm. Centered near the hepatic hilum. Adjacent adenopathy versus mass extension abov e the level of the pancreas. Areas of hypervascularity on arterial and venous sequences. These coul d represent prominent neovascularity, pseudoaneurysms or portosystemic systemic shunts. Intralesiona l hemorrhage also possibility. There is a wedge-shaped area of decreased attenuation noted at the po sterosuperior right lobe which could represent infarct. The large mass causes compression of the upp er SVC as well as portal vein. Gallbladder and biliary tract: Gallbladder is collapsed. No evidence of calculi. No gallbladder wall thickening. No biliary dilation. Pancreas: Normal density, no abnormal calcifications or inflammatory process. Spleen: Normal. Kidneys: The left kidney is normal size, contour and axis. Right kidney is displaced inferiorly by l arge hepatic mass. No obstructive uropathy. No masses seen. No evidence of calculi. Adrenal glands: Stable left adrenal thickening. Right adrenal obscured by large hepatic mass. No ma sses seen. Bladder: No gross wall thickening. No evidence of calculi. No evidence of mass. Bowel: Left sided ostomy with parastomal hernia again noted. Large quantity of stool seen on the rig ht side of the colon. No obstruction at this site ileocolic anastomosis. Additional right-sided her kathrine containing knuckle of bowel, similar appearance to prior. No evidence of obstruction at this sit e. Mild dilatation of some loops of small bowel in the low pelvis could indicate partial or early ob struction. Peritoneal cavity: Small amount of ascites. No focal collection. No mesenteric inflammatory respons e. Bones: No acute findings. No definite metastatic lesions. Lymph nodes: Question of enlarged lymph node adjacent to the hepatic mass versus extension of hepatic mass into adjacent tissue. Reproductive: Unremarkable. IMPRESSION: New large liver mass with extension into soft tissues of hepatic hilum. Vascular compression. Intra tumoral areas of hypervascularity could indicate pseudoaneurysms, intralesional hemorrhage or AV fis tulas. Stable appearance of left parastomal hernia as well as right-sided hernia containing occult bowel. N o obstruction at these sites however there is a dilated small bowel loops in the low pelvis which cou ld indicate early or partial small bowel obstruction. Severe atherosclerotic changes. Small stents in the right common and external iliac arteries which a re patent. Severe stenosis of both internal iliac arteries. RADIATION DOSE DELIVERED: 459.99mGy.cm Total DLP DATA REPOSITORY: All CT scans at this facility are submitted to the National Radiology Data Registry (NRDR) Dose Index Registry (DIR) with the [employer] (ACR). RADIATION OPTIMIZATION: All CT scans at this facility use at least one of these dose optimization te chniques: automated exposure control; mA and/or kV adjustment per patient size (includes targeted exa ms where dose is matched to clinical indication); or iterative reconstruction.
[2024-07-22 20:53] LABS: Lipase 21 U/L (<78)
[2024-07-22 20:57] LABS: ALT 43 U/L (16-63); AST 159 U/L (15-37); Alkaline Phosphatase 308 U/L (46-116); Anion Gap 13.1 mmol/L (3-11); BUN 23 mg/dL (7-18); Bilirubin, Total 0.71 mg/dL (0.2-1.0); CO2 23.9 mmol/L (21.0-32.0); CREATININE 1.8 mg/dL (0.70-1.30); Calcium 8.2 mg/dL (8.5-10.1); Chloride 102 mmol/L (98-107); Estimated GFR 39.99 (mL/min/1.73m2); Glucose 195 mg/dL (74-106); Magnesium 1.4 mg/dL (1.8-2.4); Potassium 4.2 mmol/L (3.5-5.1); Sodium 139 mmol/L (136-145); Total Protein 7.1 g/dL (6.4-8.2)
[2024-07-22 21:00] LABS: Absolute Lymphocyte Count 2.12 10^3/uL (1.2-3.4); Absolute Monocyte Count 1.93 10^3/uL (0.1-0.8); Atypical Lymphocytes % 3 %; Bands % 6 %
[2024-07-22 21:01] LABS: Absolute Neutrophil Count 15.25 10^3/uL (1.2-6.7); Anisocytosis 1+; Diff Comment Manual Differential; Poikilocytes 1+
[2024-07-22 21:02] LABS: Polychromasia Present
[2024-07-22] MEDS: PIPERACILLIN/TAZO 4.5 GM in Normal Saline 100 ML IVPB (21:21)
[2024-07-22] MEDS: Normal Saline 1,000 ML 1000 ML IV (21:21)
[2024-07-22] MEDS: Omnipaque 350 MG/ML 100 ML BTL IJ (21:35)
[2024-07-22] MEDS: Normal Saline - Diluent 50 ML VIAL IJ (21:42)
[2024-07-22] MEDS: Normal Saline Flush 10 ML SYR IVP (21:43)
[2024-07-22] MEDS: MORPHine 4 MG/ML SYR IVP (22:40)
--- NOTE | 2024-07-22 23:01 | DI.VRAD_ITS ---
Addendum created by Nimesh Patel MD on 07/22/2024 11:58:08 PM EST: ADDENDUM: This case was discussed personally with DR HARDY at 11:55 PM EST on 07/22/2024. The spleen commonly appears heterogeneous during the early arterial phase of contrast enhancement. This appearance clears by the time of the delayed phase. The spleen appears homogeneous on the delayed, venous phase imaging. Regarding the regions of contrast density within the hepatic mass, acute bleeding into the mass could certainly produce this appearance. Clinical correlation is recommended to determine the need for further evaluation by conventional catheter angiography. Addendum created by Nimesh Patel MD on 07/22/2024 11:03:05 PM EST: This case was discussed personally with SONNY ECHAVARRIA at 11:02 PM EST on 07/22/2024. Initial report created on 07/22/2024 10:59:39 PM EST: PROCEDURE INFORMATION: Exam: CTA Abdomen and Pelvis With Contrast Exam date and time: 07/22/2024 9:25 PM Age: 69 years old Clinical indication: Generalized; Prior surgery; Surgery date: 6+ months; Surgery type: Ileostomy; Patient HX: Severe abdominal pain, elevated lactate TECHNIQUE: Imaging protocol: Computed tomographic angiography of the abdomen and pelvis with contrast. Exam focused on the arteries. 3D rendering (Not supervised by radiologist): MIP and/or 3D reconstructed images were created by the technologist. Radiation optimization: All CT scans at this facility use at least one of these dose optimization techniques: automated exposure control; mA and/or kV adjustment per patient size (includes targeted exams where dose is matched to clinical indication); or iterative reconstruction. Contrast material: OMNIPAQUE 350; Contrast volume: 75 ml; Contrast route: INTRAVENOUS (IV); COMPARISON: CT CHEST/ABD/PEL W 01/28/2023 1:27 PM FINDINGS: Lungs: Lung bases clear. Aorta: No abdominal aortic aneurysm or dissection. Celiac trunk and mesenteric arteries: Celiac artery, superior mesenteric artery, and inferior mesenteric arteries widely patent. Renal arteries: Right and left renal arteries widely patent. Right iliac arteries: Intra-arterial stents in the right common and external iliac arteries, widely patent. Severe narrowing and possible segmental occlusion of the right internal iliac artery. Right femoral/popliteal arteries: Right common femoral and visualized proximal right superficial femoral arteries widely patent. Left iliac arteries: Left common iliac and external iliac arteries widely patent. Severe narrowing or occlusion of the left internal iliac artery. Left femoral/popliteal arteries: Left common femoral and visualized proximal left superficial femoral arteries widely patent. Liver: New 13.4 cm x 17.2 cm x 14.3 cm heterogeneous mass centered near the hepatic hilum but involving a large portion of the medial left hepatic segment and right lobe of the liver with bulky abnormal extrahepatic soft tissue at the hepatic hilum extending leftward into the gastrohepatic ligament and into the retroperitoneum with encasement, narrowing, and displacement of numerous vascular structures through this region. Large regions of vascular enhancement within the hepatic component on the delayed series suspicious for intralesional pseudoaneurysms and/or portosystemic or arteriovenous shunting. Gallbladder and biliary ducts: Gallbladder partially decompressed. No calcified gallstones or biliary dilatation. Pancreas: Pancreatic head displaced anteriorly by the mass. Direct invasion not excluded. Normal-appearing pancreatic body and tail. No pancreatic ductal dilatation. Spleen: Normal-appearing spleen. Adrenal glands: Gross enlargement of the left adrenal gland, nonspecific. Right adrenal gland not confidently identified, possibly displaced medially and obscured by the mass; however, adrenal invasion, encasement, or an adrenal origin for the mass are not excluded. Kidneys and ureters: Inferior displacement of the right kidney. Small right renal cyst. Mild symmetric perinephric edema. Otherwise normal-appearing kidneys. No hydronephrosis. Stomach and bowel: No oral contrast. Stomach moderately distended with fluid. Left-sided enterostomy with a large subjacent parastomal hernia, as detailed below. Uncertain postsurgical anatomy. Prior right-sided resection with an end enterostomy and a long colorectal pouch? Diverting enterostomy with an enterocolic anastomosis in the right lower quadrant? Correlation with known surgical history recommended. Moderate retained fecal material in the ascending right colon adjacent to a surgical anastomosis, as seen on the prior exam. Downstream colon relatively well evacuated. No evidence of diverticulitis or colitis. Moderately extensive small bowel dilatation with gas, fluid, and fecalized contents both within the abdominal cavity and within a large parastomal hernia. Appendix: Suspected to be surgically absent in the setting of a prior ileocolectomy. Correlation with surgical history recommended. Intraperitoneal space: Small amount of ascites. No free air. Lymph nodes: Bulky abnormal soft tissue at the hepatic hilum and in the retroperitoneum. Confluent metastatic adenopathy or direct extension of tumor suspected. No grossly enlarged retroperitoneal, mesenteric, or pelvic sidewall lymph nodes. Urinary bladder: Normal-appearing urinary bladder, moderately distended. Reproductive: Normal-appearing prostate gland and seminal vesicles. Bones/joints: No acute fracture seen among the bones of the abdomen or pelvis. Moderate discogenic degeneration at L5-S1. Heart only partially included in the field of view but normal in size. Soft tissues: 7.2 cm x 10.8 cm x 10.9 cm left paramidline abdominal wall hernia containing dilated loops of small bowel containing gas, fluid, and fecalized material, images 39-60 of series 8. 2.6 cm x 3.2 cm x 3.4 cm right anterior abdominal wall hernia containing a gas-filled knuckle of small bowel, image 48 of series 8. IMPRESSION: 1. New 13.4 cm x 17.2 cm x 14.3 cm heterogeneous mass centered near the hepatic hilum but involving a large portion of the medial left hepatic segment and right lobe of the liver with bulky abnormal extrahepatic soft tissue at the hepatic hilum extending leftward into the gastrohepatic ligament and into the retroperitoneum with encasement, narrowing, and displacement of numerous vascular structures through this region. Large regions of vascular enhancement within the hepatic component of the mass on the delayed series suspicious for intralesional pseudoaneurysms and/or portosystemic or arteriovenous shunting. A large malignant neoplasm is suspected until proven otherwise. 2. Uncertain postsurgical bowel anatomy, as above. Left-sided enterostomy with a large parastomal hernia, as described. Extensive small bowel distension with gas, fluid, and fecalized material raising concern for possible partial or developing obstructive physiology; however, no point of abrupt caliber transition or collapsed segment is seen. Clinical correlation is recommended. Dictated and Authenticated by: Nimesh Patel MD. Ordering:SARAHI Rosenberg MD
[2024-07-22] MEDS: MAGNESIUM SULFATE 1 GM/100 ML BAG IV_INF (23:43)
[2024-07-22] MEDS: fentaNYL 100 MCG/2 ML VIAL 50 MCG IVP (23:44)
[2024-07-23] VITALS (34 sets, daily range): BP systolic 78–168; BP diastolic 46–106; PULSE 110–134; RESP 16–31; O2SAT 95–100
[2024-07-23 00:16] LABS: Bilirubin Negative (Negative); Blood Moderate (Negative); Clarity Clear (Clear); Glucose Negative (Negative); Ketones Negative (Negative); Leukocyte Esterase Negative (Negative); Nitrite Negative (Negative); Urobilinogen 0.2 mg/dL (Up to 0.2)
[2024-07-23 00:35] LABS: Epithelial Cells Negative HPF (Negative); Other Cells Rare Renal (Negative)
[2024-07-23 00:36] LABS: Bacteria Rare HPF (Negative); C & S Indicated? No; Casts 0-2 Coarse Granular LPF (Negative); Crystals Negative HPF (Negative); Mucus Trace (Negative)
[2024-07-23 01:17] LABS: HCT 34.9 % (40.0-50.0); HGB 10.7 g/dL (13.5-17.5)
[2024-07-23 01:31] LABS: INR 1.5 (0.9-1.1); PTT Activated 29.7 sec (20.6-30.2); Prothrombin Time 14.4 sec (9.1-11.1)
--- NOTE | 2024-07-23 02:22 | ED.PROG_ITS ---
Date of service: 07/23/24 Time of Service: 02:23 Medical Decision Making Case was signed out to me by my colleague Shakira Blum ASSOCIATE PROFESSOR OF MANAGEMENT. Please refer to HPI, physical exam, assessment and plan. At time of signout we are awaiting callback from [facility] oncology out of concern for the liver mass. I did personally review the images, and contacted virtual radiology for further discussion about the mass. I discussed the clinical scenario with the radiologist, and I did question if there was potential active hemorrhage. After discussion with the radiologist, he did elicit concerned that this may be more reflective of a small mass that then had significant bleed after potential trauma or fall. Patient has fallen a few times. Patient has remained persistently tachycardic here after a liter of normal saline. Blood pressure has show no evidence of hypotension, but is steadily declining from the initial 150s, now residing at 124 systolic. I did get a repeat hemoglobin level, and hemoglobin has had a to point drop from 12.8-10.7 in the 2 to 3 hours here. Concern for active potential intrahepatic hemorrhage. [facility] did call back and I discussed the case with them. They have refused transfer stating capacity issues. Patient has received Zosyn already at this time. I did reach out to the [facility] and discussed the case with interventional radiology and they would review the images. They recommend transfer for IR, but not emergently. After images were reviewed by interventional radiology they did call back and recommend emergent transfer ED to ED. I discussed the case with Dr. Gibbons of the emergency department. She accepts the patient for transfer. [facility] be [facility]. At time of transfer patient's blood pressure had steadily been declining. He was in the 120 systolic prior to transfer, and then at the time of transfer he dropped down to the 90s systolic. IV fluid bolus was ordered for 1 L to be used in transit, orders were given for music theory professor to administer Levophed and titrate for MAP greater than 65 pressures continue to drop. I have extensively reviewed the treatment plan with the patient. I have addressed all patient concerns at this time. I have also discussed the plan with the admitting physician and they agree with the current assessment and plan and have agreed to assume responsibility for the patient. All parties demonstrate verbal understanding and agreement with our assessment and plan at this time. The documentation in this chart was dictated using Dragon dictation software. Please excuse any dictation errors. Quality:SDOH Health Related Social Needs: No Data to Display Critical Care Time Critical Care Time Critical Care Time: Yes Total Critical Care Time: 100 Attestation: Upon my evaluation, this patient had a high probability of imminent or life- threatening deterioration, which required my direct attention, intervention, and personal management. I have personally provided 100 minutes of critical care time exclusive of time spent on separately billable procedures. Time includes review of laboratory data, radiology results, discussion with consultants, and monitoring for potential decompensation. Interventions were performed as documented. Discharge Plan Disposition Patient Disposition: Transfer-Acute Inpatient Care Specific Acute Inpt Facility: [facility] Condition: Serious Discharge Details Chief Complaint: Abd Prob Clinical Impression: Intrahepatic bleeding, Liver mass Primary Care Provider: Christie Pratt ED Provider: Nikolay Lane Home Meds and New Rx's Prescriptions: No Action divalproex 125 mg capsule, delayed rel sprinkle 500 mg PO BID quetiapine [Seroquel] 50 mg tablet 50 mg PO DAILY (DME) Comvatec Ostomy bags 5 inches See Rx Instructions .Route .MEDSUPPLY Qty: 1 0RF Rx Instructions: #[id number] dispense 2 boxes (of 10 per box) per month refills albuterol sulfate [Proventil HFA] 90 mcg/actuation HFA aerosol inhaler 1 - 2 puff Inhalation Q4H PRN PRN (Reason: shortness of breath or wheezing) Qty: 1 2RF multivitamin Tablet 1 tab PO DAILY (DME) Ostomy Bag See Rx Instructions .Route .MEDSUPPLY Qty: 30 6RF Rx Instructions: Model number [id number]. Change daily PRN (DME) Ostomy Wafer See Rx Instructions .Route .MEDSUPPLY Qty: 30 6RF Rx Instructions: Model number [id number]. Change daily PRN cyclobenzaprine 5 mg tablet 5 mg PO TID PRN (Reason: muscle spasm) Qty: 21 0RF (DME) Brava coloplast barrier strips Y Shaped 0 .Route .MEDSUPPLY Qty: 30 12RF Rx Instructions: Elastic Barrier strips Y shaped. Model number [id number] pantoprazole 40 mg tablet,delayed release (DR/EC) 40 mg PO DAILY Qty: 90 3RF ketoconazole 2 % cream 1 applic topical DAILY Qty: 120 6RF Rx Instructions: Apply to toenails once daily urea 40 % cream 1 applic topical DAILY Qty: 28.35 3RF quetiapine [Seroquel] 100 mg tablet 100 mg PO QHS Anoro Ellipta 62.5-25 mcg/actuation blister with device 1 inh inhalation DAILY Qty: 60 12RF mirtazapine [Remeron SolTab] 45 MG tablet,disintegrating 45 mg PO HS Rx Instructions: [facility] acetaminophen 325 MG tablet 650 mg PO Q4H PRN Qty: 30 Rx Instructions: [facility] [facility] loperamide 2 MG capsule 4 mg PO QID PRNQty: 100 psyllium husk (sweetleaf) 3.5 gram powder in packet 1 packet PO TID Patient Comments: 05/26/21 [facility] [place] hem/onc note (DME) Ostomy barrier strips See Rx Instructions .Route .MEDSUPPLY Qty: 1 11RF Rx Instructions: #[id number] dispense 1 box per month / refills. thiamine mononitrate (vit B1) 100 mg tablet 100 mg PO DAILY Qty: 90 3RF folic acid 1 mg tablet 1 mg PO DAILY Qty: 90 3RF atenolol 100 mg tablet See Rx Instructions .ROUTE .COMPLEX Qty: 15 12RF Dose Instruction: TAKE 1/2 TABLET BY MOUTH DAILY Rx Instructions: TAKE 1/2 TABLET BY MOUTH DAILY atorvastatin 80 mg tablet 80 mg PO DAILY Qty: 90 3RF pregabalin 100 mg capsule 100 mg PO TID Qty: 90 3RF bupropion HCl [Wellbutrin SR] 150 mg tablet sustained-release 12 hr 150 mg PO BID Patient Comments: per pt at 06/20/24 ov cilostazol 50 mg tablet See Rx Instructions .ROUTE .COMPLEX Qty: 60 6RF Dose Instruction: TAKE 1 TABLET BY MOUTH TWICE A DAY Rx Instructions: TAKE 1 TABLET BY MOUTH TWICE A DAY (DME) Stoma Barrier wipes See Rx Instructions .Route .MEDSUPPLY Qty: 2 11RF Rx Instructions: PLEASE PROVIDE PATIENT WITH ALCOHOL FREE WIPES. THE CURRENT ONES HE HAS ARE IRRITATING HIS SKIN. HE NEEDS TWO BOXES A MONTH loratadine 10 mg tablet 10 mg PO DAILY Qty: 90 3RF Discharge Data Discharge Date/Time-TO BE ENTERED AT DEPARTURE: 07/23/24 03:26
[2024-07-23] MEDS: fentaNYL 100 MCG/2 ML VIAL 50 MCG IVP (03:07)
== END 2024-07-23 03:26 | disposition short-term general hospital (02) ==
PROVIDERS: Nurse Practitioner Family; Emergency Provider Student in an Organized Health Care Education/Training Program; PCP Nurse Practitioner
DX: K76.89 Other specified diseases of liver (principal); K43.5 Parastomal hernia without obstruction or gangrene; R16.0 Hepatomegaly, not elsewhere classified; I12.9 Hypertensive chronic kidney disease with stage 1 through stage 4 chronic kidney disease, or unspecified chronic kidney disease; N18.9 Chronic kidney disease, unspecified; E78.5 Hyperlipidemia, unspecified; Z93.4 Other artificial openings of gastrointestinal tract status
CPT/HCPCS: 00123; 36415; 80053; 83690; 87040; 96365; 96367; 96375; 99291; 74174; 81003; 81015; 83605; 83735; 85014; 85018; 85025; 85610; 85730; J2270; J2405; J2543; J3010; J3475; J3490